=== PATIENT | female | born 1980 | race African-American/Black ===

== ENCOUNTER 2018-08-16 22:59 | Emergency (ER) | payer SELFPAY ==
[2018-08-16 23:58] LABS: Absolute Lymphocytes (CBC) 2.5 K/uL (0.7-4.9); Absolute Monocytes 0.8 K/uL (0.1-1.3); Absolute Neutrophil 5.9 K/uL (1.8-8.0); Basophils % 0.9 % (0-1.3); Eosinophils % 0.4 % (0-4.4); Hematocrit 26.9 % (36.0-45.0); Lymphocytes % 27.2 % (15.3-44.8); MCH 19.1 pg (27.0-35.0); MCV 60.7 fL (80-100); Monocytes % 8.6 % (3.3-12.3); RBC Red Blood Cell Count 4.43 M/uL (3.86-4.86)
[2018-08-17 00:18] LABS: ALT/SGPT 15 U/L (12-78); AST/SGOT 6 U/L (15-37); Albumin 3.5 g/dL (3.4-5.0); Alkaline Phosphatase 87 U/L (45-117); BUN Blood Urea Nitrogen 10 mg/dL (7-18); Bicarbonate 26 mmol/L (21-32); Bilirubin Direct < 0.1 mg/dL (0-0.2); Bilirubin Total 0.2 mg/dL (0.2-1.0); Glucose Level 111 mg/dL (74-106); Magnesium 2.3 mg/dL (1.8-2.4); Potassium 3.3 mmol/L (3.5-5.1); Protein, Total 7.6 g/dL (6.4-8.2); Sodium Level 142 mmol/L (136-145); T3 Free 2.65 pg/mL (2.18-3.98); Troponin (Emerg Dept Use Only) < 0.02 ng/mL (0.0-0.045)
[2018-08-17] MEDS ORDERED: ONDANSETRON 4 MG/2 ML VIAL ONE (00:50)
[2018-08-17] MEDS ORDERED: NA CHLORIDE 0.9% 500 ML ONE (00:51)
--- NOTE | 2018-08-17 01:10 | EDPHYS ---
Physician Documentation [facility] Name: Rosmery Treadwell Age: 38 yrs Sex: Female : 1980 Arrival Date: 08/16/2018 Time: 23:04 Bed 17 Private MD: ED Physician Adryan Braxton HPI: 08/16 23:45 This 38 yrs old Black Female presents to ER via EMS with complaints of Shortness Of cp Breath. 23:45 The patient has shortness of breath at rest. 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 Duration: The symptoms are continuous. Associated signs and symptoms: Pertinent positives: palpitations, Pertinent negatives: chest pain, productive cough, diaphoresis, fever, hemoptysis, visual changes, vomiting. Severity of symptoms: in the emergency department the symptoms have improved mildly. The patient has experienced similar episodes in the past, today's symptoms are similar, to when the patient was apparently diagnosed with atrial fibrillation. 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 - Social history:: Smoking status: Patient/guardian denies using tobacco, Patient uses alcohol, occasionally. Patient/guardian denies using street drugs, IV drugs. - Ebola Screening: : Patient negative for fever greater than or equal to 101.5 degrees Fahrenheit, and additional compatible Ebola Virus Disease symptoms Patient denies exposure to infectious person Patient denies travel to an Ebola-affected area in the 21 days before illness onset. ROS: 23:50 Constitutional: Negative for body aches, chills, fever, poor PO intake. cp 23:50 Eyes: Negative for injury, pain, redness, and discharge. cp 23:50 ENT: Negative for drainage from ear(s), ear pain, sore throat, difficulty swallowing, difficulty handling secretions. 23:50 Cardiovascular: Positive for palpitations, Negative for chest pain, edema. 23:50 Respiratory: Positive for shortness of breath, Negative for cough, wheezing. 23:50 Abdomen/GI: Negative for abdominal pain, nausea, vomiting, and diarrhea, anorexia, black/tarry stool, rectal bleeding. 23:50 Back: Negative for pain at rest, pain with movement. 23:50 : Negative for urinary symptoms, pelvic pain, vaginal bleeding, vaginal discharge. 23:50 Skin: Negative for cellulitis, rash. 23:50 Neuro: Negative for altered mental status, headache, syncope, near syncope, weakness. 23:50 All other systems are negative. Exam: 23:53 Head/Face: Normocephalic, atraumatic. cp 23:53 Eyes: Pupils equal round and reactive to light, extra-ocular motions intact. Lids and lashes normal. Conjunctiva and sclera are non-icteric and not injected. Cornea within normal limits. Periorbital areas with no swelling, redness, or edema. ENT: Nares patent. No nasal discharge, no septal abnormalities noted. Tympanic membranes are normal and external auditory canals are clear. Oropharynx with no redness, swelling, or masses, exudates, or evidence of obstruction, uvula midline. Mucous membranes moist. Neck: Trachea midline, no thyromegaly or masses palpated, and no cervical lymphadenopathy. Supple, full range of motion without nuchal rigidity, or vertebral point tenderness. No Meningismus. Chest/axilla: Normal chest wall appearance and motion. Nontender with no deformity. No lesions are appreciated. 23:53 Constitutional: The patient appears in no acute distress, alert, awake, non-diaphoretic, non-toxic, well developed, well nourished. 23:53 Cardiovascular: Rate: tachycardic, Rhythm: regular, Pulses: Pulses are 2+ in right radial artery and left radial artery. Heart sounds: murmur, not appreciated, rub, not appreciated, gallop, not appreciated, Edema: is not appreciated, JVD: is not appreciated. 23:53 Respiratory: the patient does not display signs of respiratory distress, Respirations: normal, no use of accessory muscles, no retractions, no splinting, no tachypnea, labored breathing, is not present, Breath sounds: are clear throughout, no decreased breath sounds, no stridor, no wheezing. 23:53 Abdomen/GI: Inspection: abdomen appears normal, Bowel sounds: active, all quadrants, Palpation: abdomen is soft and non-tender, in all quadrants, rebound tenderness, is not appreciated, voluntary guarding, is not appreciated, involuntary guarding, is not appreciated. 23:53 Back: pain, is absent, ROM is normal. 23:53 Skin: cellulitis, is not appreciated, no rash present. 23:53 Neuro: Orientation: to person, place \T\ time. Mentation: is normal, Cerebellar function: is grossly normal, Motor: moves all fours, strength is normal, Sensation: is normal. 23:55 ECG was reviewed by the Attending Physician. cp Vital Signs: 23:09 BP 118 / 55; Pulse 103; Resp 18; Temp 98.3(O); Pulse Ox 100% on R/A; Weight 76.2 kg ao (R); Height 5 ft. 0 in. (152.40 cm) (R); Pain 0/10; 08/17 00:15 BP 110 / 63; Pulse 86; Resp 17 S; Pulse Ox 100% on R/A; cc3 01:20 BP 112 / 72; Pulse 83; Resp 17 S; Pulse Ox 100% on R/A; cc3 08/16 23:09 Body Mass Index 32.81 (76.20 kg, 152.40 cm) ao MDM: 08/16 23:23 Patient medically screened. cp 08/17 00:00 Differential diagnosis: Anemia CHF exacerbation, Myocardial Infarction pneumonia, cp Pneumothorax pulmonary edema, Pulmonary Embolism Unstable Angina cardiac arrythmia. 01:10 Data reviewed: vital signs, nurses notes, lab test result(s), EKG, radiologic studies, cp plain films. Test interpretation: by ED physician or midlevel provider: ECG, plain radiologic studies. Counseling: I had a detailed discussion with the patient and/or guardian regarding: the historical points, exam findings, and any diagnostic results supporting the discharge/admit diagnosis, lab results, radiology results, the need for outpatient follow up, for definitive care, a family practitioner, to return to the emergency department if symptoms worsen or persist or if there are any questions or concerns that arise at home. Response to treatment: the patient's symptoms have markedly improved after treatment, VSS. Discussed results of labs and need for f/u with PCP. Reviewed notes from previous visits that show chronic anemia. Patient denies rectal or vaginal bleeding. Will discharge to home for continued monitoring. 08/16 23:30 Order name: Basic Metabolic Panel; Complete Time: 00:30 cp 08/17 00:30 Interpretation: Normal except: K 3.3; CL 109; GLUC 111; GFR 85. cp 08/16 23:30 Order name: CBC with Diff; Complete Time: 00:30 cp 08/17 00:30 Interpretation: Normal except: HGB 8.5; HCT 26.9; MCV 60.7; MCH 19.1; MCHC 31.5; PLT cp 515; RDW 18.2; MPV 7.0. 08/16 23:30 Order name: LFT's; Complete Time: 00:30 cp 08/16 23:30 Order name: Magnesium; Complete Time: 00:30 cp 08/16 23:30 Order name: PT-INR; Complete Time: 00:30 cp 08/16 23:30 Order name: Troponin (emerg Dept Use Only); Complete Time: 00:30 cp 08/16 23:30 Order name: TSH; Complete Time: 00:30 cp 08/16 23:30 Order name: T3 Free; Complete Time: 00:30 cp 08/16 23:30 Order name: UDS cp 08/16 23:30 Order name: D-Dimer; Complete Time: 00:30 cp 08/17 00:30 Order name: XRAY Chest (1 view) 08/17 01:11 Order name: Urine Dipstick--Ancillary (enter results) ms 08/17 01:11 Order name: Urine --Ancillary (enter results) ms 08/16 23:30 Order name: EKG; Complete Time: 23:30 cp 08/16 23:30 Order name: EKG - Nurse/Tech; Complete Time: 23:50 cp 08/16 23:30 Order name: Cardiac monitoring; Complete Time: 23:50 cp 08/16 23:30 Order name: IV Saline Lock; Complete Time: 23:50 cp 08/16 23:30 Order name: Labs collected and sent; Complete Time: 23:50 cp 08/16 23:30 Order name: O2 Per Protocol; Complete Time: 23:50 cp 08/16 23:30 Order name: O2 Sat Monitoring; Complete Time: 23:50 cp 08/16 23:30 Order name: Urine Dipstick-Ancillary (obtain specimen); Complete Time: 04:03 cp 08/16 23:30 Order name: Urine Test (obtain specimen); Complete Time: 04:03 cp EC/12 23:55 Rate is 84 beats/min. Rhythm is regular. OR interval is normal. QRS interval is normal. cp QT interval is normal. Interpreted by me. Reviewed by me. Administered Medications: 08/17 00:32 CANCELLED (Physician Discretion): NS 0.9% 1000 ml IV at 1 bolus Per protocol; 1000 mL cp bolus 00:50 Drug: Zofran 4 mg Route: IVP; Site: right antecubital; cc3 01:20 Follow up: Response: No adverse reaction; Nausea is decreased cc3 00:50 Drug: NS 0.9% 500 ml Route: IV; Rate: bolus; Site: right antecubital; cc3 01:20 Follow up: Response: No adverse reaction; IV Status: Completed infusion; IV Intake: cc3 500ml 01:05 Drug: Potassium Effervescent Tablet 25 mEq Route: PO; cc3 01:20 Follow up: Response: No adverse reaction cc3 Disposition: 14:49 Co-signature as Attending Physician, Adryan Braxton MD I agree with the assessment and wa plan of care. Disposition: 08/17/18 01:10 Discharged to Home. Impression: Palpitations, Anemia in chronic diseases classified elsewhere. - Condition is Stable. - Discharge Instructions: Anemia, Nonspecific, Palpitations. - Medication Reconciliation Form, Thank You Letter, Antibiotic Education, Prescription Opioid Use form. - Follow up: Private Physician; When: 1 - 2 days; Reason: Recheck today's complaints. - Problem is new. - Symptoms have improved. Signatures: Dispatcher [employer] EDMI Álvaro Doyle PA PA cp Ortiz, Alex, RN RN ao Appiah, William, MD MD wa Cordel, Charlene cc3 Corrections: (The following items were deleted from the chart) 00:32 00:30 NS 0.9% 1000 ml IV at 1 bolus Per protocol; 1000 mL bolus ordered. cp cp 01:27 01:10 08/17/2018 01:10 Discharged to Home. Impression: Palpitations; Anemia in chronic cc3 diseases classified elsewhere. Condition is Stable. Forms are Medication Reconciliation Form, Thank You Letter, Antibiotic Education, Prescription Opioid Use. Follow up: Private Physician; When: 1 - 2 days; Reason: Recheck today's complaints. Problem is new. Symptoms have improved. cp
--- NOTE | 2018-08-17 01:10 | ER ---
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 ao Patient was 100% RA. Patient stated that she was worried about heart problems and was diagnosed with AFib in the past. Patient shows SR in the monitor for EMS. Patient was positive for nausea and denies chest pain. Transition of care: patient was not received from another setting of care. Onset of symptoms was August 16, 2018 at 22:00. Risk Assessment: Do you want to hurt yourself or someone else? Patient reports no desire to harm self or others. Initial Sepsis Screen: Does the patient meet any 2 criteria? No. Patient's initial sepsis screen is negative. Does the patient have a suspected source of infection? No. Patient's initial sepsis screen is negative. Care prior to arrival: None. 23:05 Method Of Arrival: EMS: [facility] ao 23:05 Acuity: SLIM 3 ao Triage Assessment: 23:10 General: Appears in no apparent distress. comfortable, Behavior is calm, cooperative, cc3 appropriate for age. Pain: Denies pain. EENT: No signs and/or symptoms were reported regarding the EENT system. Neuro: Level of Consciousness is awake, alert, obeys commands, Oriented to person, place, time, situation, Appropriate for age. Cardiovascular: Denies chest pain, Patient's skin is warm and dry. Respiratory: Reports shortness of breath since 30 minutes prior to ER consult Onset: The symptoms/episode began/occurred today, the patient has mild shortness of breath. GI: Abdomen is round non-distended. : No signs and/or symptoms were reported regarding the genitourinary system. Derm: No signs and/or symptoms reported regarding the dermatologic system. Musculoskeletal: Circulation, motion, and sensation intact. Range of motion: intact in all extremities. 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 - Social history:: Smoking status: Patient/guardian denies using tobacco, Patient uses alcohol, occasionally. Patient/guardian denies using street drugs, IV drugs. - Ebola Screening: : Patient negative for fever greater than or equal to 101.5 degrees Fahrenheit, and additional compatible Ebola Virus Disease symptoms Patient denies exposure to infectious person Patient denies travel to an Ebola-affected area in the 21 days before illness onset. Screenin:10 Abuse screen: Denies threats or abuse. Denies injuries from another. Nutritional cc3 screening: No deficits noted. Tuberculosis screening: No symptoms or risk factors identified. Fall Risk Ambulatory Aid- None/Bed Rest/Nurse Assist (0 pts). Gait- Normal/Bed Rest/Wheelchair (0 pts) Mental Status- Oriented to own ability (0 pts). Assessment: 23:10 Respiratory: Airway is patent Respiratory effort is even, unlabored. cc3 23:10 Respiratory: Breath sounds are clear bilaterally. cc3 23:11 General: Appears in no apparent distress. comfortable, Behavior is calm, cooperative, ao appropriate for age. Pain: Complains of pain in chest resolved at this time Pain currently is 0 out of 10 on a pain scale. Neuro: Level of Consciousness is awake, alert, obeys commands, Oriented to person, place, time, situation, Appropriate for age. Cardiovascular: Rhythm is sinus tachycardia. 08/17 00:30 Reassessment: Patient appears in no apparent distress at this time. Patient and/or cc3 family updated on plan of care and expected duration. Pain level reassessed. Patient is alert, oriented x 3, equal unlabored respirations, skin warm/dry/pink. 01:20 Reassessment: Patient appears in no apparent distress at this time. Patient and/or cc3 family updated on plan of care and expected duration. Pain level reassessed. Patient is alert, oriented x 3, equal unlabored respirations, skin warm/dry/pink. BRIDGETTE Doyle discharged the patient no prescription was given. IV cannula removed and patient left ER vitally stable and ambulatory. Vital Signs: 08/16 23:09 BP 118 / 55; Pulse 103; Resp 18; Temp 98.3(O); Pulse Ox 100% on R/A; Weight 76.2 kg ao (R); Height 5 ft. 0 in. (152.40 cm) (R); Pain 0/10; 08/17 00:15 BP 110 / 63; Pulse 86; Resp 17 S; Pulse Ox 100% on R/A; cc3 01:20 BP 112 / 72; Pulse 83; Resp 17 S; Pulse Ox 100% on R/A; cc3 08/16 23:09 Body Mass Index 32.81 (76.20 kg, 152.40 cm) ao ED Course: 08/16 23:04 Patient arrived in ED. ao 23:09 Triage completed. ao 23:10 Patient has correct armband on for positive identification. Bed in low position. Call cc3 light in reach. Side rails up X2. manager international on. Pulse ox on. NIBP on. 23:11 Arm band placed on right wrist. 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 23:23 Álvaro Doyle PA is PHCP. cp 23:23 Adryan Braxton MD is Attending Physician. cp 23:37 Chantel Hayes is Primary Nurse. cc3 23:45 Inserted saline lock: 20 gauge in right antecubital area, using aseptic technique. cc3 Blood collected. 08/17 00:45 X-ray completed. Portable x-ray completed in exam room. Patient tolerated procedure jb2 well. 01:01 XRAY Chest (1 view) In Process Unspecified. EDMS 01:20 No provider procedures requiring assistance completed. IV discontinued, intact, cc3 bleeding controlled, No redness/swelling at site. Pressure dressing applied. Administered Medications: 00:32 CANCELLED (Physician Discretion): NS 0.9% 1000 ml IV at 1 bolus Per protocol; 1000 mL cp bolus 00:50 Drug: Zofran 4 mg Route: IVP; Site: right antecubital; cc3 01:20 Follow up: Response: No adverse reaction; Nausea is decreased cc3 00:50 Drug: NS 0.9% 500 ml Route: IV; Rate: bolus; Site: right antecubital; cc3 01:20 Follow up: Response: No adverse reaction; IV Status: Completed infusion; IV Intake: cc3 500ml 01:05 Drug: Potassium Effervescent Tablet 25 mEq Route: PO; cc3 01:20 Follow up: Response: No adverse reaction cc3 Intake: 01:20 IV: 500ml; Total: 500ml. cc3 Outcome: 01:10 Discharge ordered by . cp 01:20 Discharged to home ambulatory, with family. cc3 01:20 Condition: stable 01:20 Discharge instructions given to patient, family, Instructed on discharge instructions, follow up and referral plans. Demonstrated understanding of instructions, follow-up care. 01:27 Patient left the ED. cc3 Signatures: Dispatcher [employer] EDMS Alberto Brunson2 Álvaro Doyle PA PA cp Ortiz, Alex, LUPE RN Chantel Montes cc3
[2018-08-17] MEDS ORDERED: POTASSIUM 25 MEQ EFFERV TAB ONE (01:16)
[2018-08-17 01:22] LABS: Urine Blood NEGATIVE (NEG); Urine Glucose NEGATIVE (NEG); Urine Protein NEGATIVE (NEG); Urine Specific Gravity 1.015 (1.005-1.030)
[2018-08-17 01:28] LABS: Barbiturates NEGATIVE (NEGATIVE); Benzodiazepines NEGATIVE (NEGATIVE); Cocaine NEGATIVE (NEGATIVE); METHAMPHETAM NEGATIVE (NEGATIVE); Methadone NEGATIVE (NEGATIVE); Opiates NEGATIVE (NEGATIVE); Phencyclidine NEGATIVE (NEGATIVE); THC Cannibis NEGATIVE (NEGATIVE)
[2018-08-17 01:33] VITALS: TEMP 98.3; O2SAT 100
[2018-08-17 01:34] VITALS: BP 110/63
--- NOTE | 2018-08-17 08:23 | RAD REPORT ---
EXAM DESCRIPTION: RAD - Chest Single View - 08/17/2018 1:01 am CLINICAL HISTORY: Palpitations, a arrhythmia, history of atrial fibrillation COMPARISON: October 2017 TECHNIQUE: AP portable chest image was obtained 0039 hours . FINDINGS: Lungs are clear. Heart and vasculature are normal. No measurable pleural effusion and no p neumothorax. No acute bony abnormality seen. No acute aortic findings suspected. IMPRESSION: No acute cardiopulmonary process. No significant interval change.
--- NOTE | 2018-08-17 08:33 | EKG ---
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
== END 2018-08-17 01:27 | disposition home or self-care (01) ==
LOC: ER 22:59
DX: R00.2 Palpitations (principal); D63.8 Anemia in other chronic diseases classified elsewhere
CPT/HCPCS: 36415; 71045; 80048; 80076; 80307; 81003; 81025; 83735; 84443; 84481; 84484; 85025; 85379; 85610; 93005; 96374; 99284; J2405

== ENCOUNTER 2021-03-10 13:52 | Emergency (ER) | payer SELFPAY ==
--- OUTSIDE RECORDS SUMMARY | 2021-03-10 13:54 | XMS REPORT | Continuity of Care Document ---
:1980 Author Organization [facility] t Address [address] [place] [address] Care Team Providers Name Role Phone Doctor Unassigned, Name Attending Clinician Unavailable Problems This patient has no known problems. Allergies, Adverse Reactions, Alerts This patient has no known allergies or adverse reactions. Medications This patient has no known medications. Procedures This patient has no known procedures. Encounters Start End Encounter Admission Attending Care Care Encounter Source Date/Time Date/Time Type Type Clinicians Facility Department ID 2019-06-03 2019-06-03 Orders Doctor ELIZABETH [id number] 00:00:00 00:00:00 Only UnassignedWILLIAM [id number] [place] [facility] [id number] Results This patient has no known results.
[2021-03-10 15:04] LABS: Urine Blood 2+ (Negative); Urine Glucose Negative (Negative); Urine Protein Negative (Negative); Urine Specific Gravity 1.025 (1.005-1.030); Urine pH 7.5 (5.0-7.0)
[2021-03-10 15:22] LABS: Absolute Lymphocytes (CBC) 2.8 K/uL (0.7-4.9); Hematocrit 28.3 % (36.0-45.0); Lymphocytes % 28.8 % (15.3-44.8); MPV 8.7 fL (7.6-11.3); RBC Red Blood Cell Count 4.74 M/uL (3.86-4.86)
[2021-03-10 15:23] LABS: Protime INR 1.06
--- NOTE | 2021-03-10 15:30 | RAD REPORT ---
EXAM DESCRIPTION: CT - Head Brain Wo Cont - 03/10/2021 3:09 pm CLINICAL HISTORY: Blurred vision COMPARISON: None TECHNIQUE: Computed axial tomography of the head was obtained. IV contrast was not requested. All CT scans are performed using dose optimization technique as appropriate and may include automated exposure control or mA/KV adjustment according to patient size. FINDINGS: An intracranial bleed is not seen . The ventricles are normal in caliber. No extra-axial fluid collection is noted. Mild cerebellar tonsillar ectopia Fluid within the sinuses/ mastoids is not seen. IMPRESSION: Mild cerebellar tonsillar ectopia No acute intracranial abnormality is seen. If patient's symptoms persist MRI of the brain would be r ecommended.
[2021-03-10 15:36] LABS: ALT/SGPT 17 U/L (12-78); AST/SGOT 9 U/L (15-37); Albumin 3.8 g/dL (3.4-5.0); Alkaline Phosphatase 91 U/L (45-117); BUN Blood Urea Nitrogen 10 mg/dL (7-18); Bicarbonate 26 mmol/L (21-32); Bilirubin Direct < 0.1 mg/dL (0-0.2); Bilirubin Total 0.3 mg/dL (0.2-1.0); Glucose Level 80 mg/dL (74-106); Magnesium 2.5 mg/dL (1.8-2.4); Potassium 3.5 mmol/L (3.5-5.1); Protein, Total 8.2 g/dL (6.4-8.2); Sodium Level 141 mmol/L (136-145); Troponin (Emerg Dept Use Only) < 0.02 ng/mL (0.0-0.045)
[2021-03-10 16:00] LABS: Urine Specific Gravity/Preg 1.025 (1.005-1.030)
--- NOTE | 2021-03-10 17:06 | EDPHYS ---
Physician Documentation [facility] Name: Rosmery Treadwell Age: 41 yrs Sex: Female : 1980 Arrival Date: 03/10/2021 Time: 13:55 Bed 4 Private MD: ED Physician Álvaro Benjamin HPI: 03/10 14:45 This 41 yrs old Black Female presents to ER via Ambulatory with complaints of Blurred cp Vision, Shaky. 14:45 The patient's problem is reported as visual difficulty, blurred vision. Onset: The cp symptoms/episode began/occurred 4 day(s) ago. 14:45 Duration: This was a single incident. cp 14:45 Context: symptoms became apparent 5 days ago. cp 14:45 The symptoms are alleviated by nothing. The symptoms are aggravated by nothing. cp Associated signs and symptoms: Pertinent negatives: chest pain, headache, lightheadedness, palpitations, weakness. Patient's baseline: Neuro: alert and fully oriented, Motor: no deficits, Ambulation: walks without assistance, Speech: normal. 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 - Social history:: Smoking status: Patient denies any tobacco usage or history of. ROS: 14:50 Constitutional: Negative for body aches, chills, fever, poor PO intake. cp 14:50 Eyes: Positive for blurry vision, Negative for discharge, pain, redness, vision loss. cp 14:50 ENT: Negative for ear pain, sore throat, difficulty swallowing, difficulty handling secretions. 14:50 Cardiovascular: Negative for chest pain, edema, palpitations. 14:50 Respiratory: Negative for cough, shortness of breath, wheezing. 14:50 Abdomen/GI: Negative for abdominal pain, nausea, vomiting, and diarrhea. 14:50 : Negative for urinary symptoms. 14:50 Neuro: Negative for altered mental status, dizziness, headache, numbness, speech changes, syncope, weakness. 14:50 All other systems are negative. Exam: 14:55 Constitutional: The patient appears in no acute distress, alert, awake, cp non-diaphoretic, non-toxic, well developed, well nourished. 14:55 Head/Face: Normocephalic, atraumatic. cp 14:55 Eyes: Periorbital structures: appear normal, Pupils: equal, round, and reactive to light and accomodation, Extraocular movements: intact throughout, Conjunctiva: normal, no exudate, no injection, Sclera: no appreciated abnormality, Lids and lashes: appear normal, bilaterally. 14:55 ENT: External ear(s): are unremarkable, Ear canal(s): are normal, clear, TM's: dullness, bilaterally, Nose: is normal, Mouth: Lips: moist, Oral mucosa: moist, Posterior pharynx: Airway: no evidence of obstruction, patent. 14:55 Neck: ROM/movement: is normal, is supple, without pain, no range of motions limitations, no nuchal rigidity. 14:55 Chest/axilla: Inspection: normal, Palpation: is normal, no crepitus, no tenderness. 14:55 Cardiovascular: Rate: normal, Rhythm: regular, Edema: is not appreciated, JVD: is not appreciated. 14:55 Respiratory: the patient does not display signs of respiratory distress, Respirations: normal, no use of accessory muscles, no retractions, labored breathing, is not present, Breath sounds: are clear throughout, no decreased breath sounds, no stridor, no wheezing. 14:55 Abdomen/GI: Inspection: abdomen appears normal, Palpation: abdomen is soft and non-tender, in all quadrants. 14:55 Skin: no rash present. 14:55 Neuro: Orientation: to person, place \T\ time. Mentation: is normal, Cerebellar function: is grossly normal, Motor: moves all fours, strength is normal, Sensation: is normal, Gait: is steady, at a normal pace, without difficulty. 15:16 ECG was reviewed by the Attending Physician. cp 15:50 Radiologist reports: no acute findings cp Vital Signs: 14:39 BP 114 / 71; Pulse 81; Resp 17; Temp 99.5; Pulse Ox 100% ; Weight 81.65 kg; Height 5 ll1 ft. (152.40 cm); Pain 0/10; 17:38 BP 106 / 73; Pulse 75; Resp 16; Pulse Ox 100% ; ll1 14:39 Body Mass Index 35.15 (81.65 kg, 152.40 cm) ll1 Visual Acuity: 14:52 Left Eye Visual acuity 20/25, ; Right Eye Visual acuity 20/15, ; Both Eyes Visual ll1 acuity 20/13; Without Lenses; MDM: 14:37 Patient medically screened. lucina 15:00 Differential diagnosis: CVA, metabolic disorder, drug effects, cardiac arrythmia, cp anemia. 17:05 Data reviewed: vital signs, nurses notes, lab test result(s), EKG, radiologic studies, cp CT scan. 17:05 Counseling: I had a detailed discussion with the patient and/or guardian regarding: the cp historical points, exam findings, and any diagnostic results supporting the discharge/admit diagnosis, lab results, radiology results, the need for outpatient follow up, for definitive care, a family practitioner, to return to the emergency department if symptoms worsen or persist or if there are any questions or concerns that arise at home. 17:05 Test interpretation: by ED physician or midlevel provider: ECG. Response to treatment: cp the patient's symptoms have mildly improved after treatment, and as a result, I will discharge patient. 17:05 ED course: VSS. Discussed labs showing anemia. Patient reported darker stools but cp declined guaiac testing at this time and reports past anemia caused by iron deficiency and heavy menses. Will discharge to home for continued monitoring. 03/10 14:42 Order name: Basic Metabolic Panel 03/10 14:42 Order name: CBC with Diff 03/10 14:42 Order name: LFT's 03/10 14:42 Order name: Magnesium cp 03/10 14:42 Order name: PT-INR 03/10 14:42 Order name: Troponin (emerg Dept Use Only) 03/10 15:04 Order name: Urine Dipstick-Ancillary; Complete Time: 15:27 EDMS 03/10 15:47 Interpretation: Normal except: UBLD 2+; UPH 7.5. 03/10 15:05 Order name: Urine --Ancillary (enter results) vt 03/10 15:26 Order name: Protime (+INR); Complete Time: 15:27 EDMS 03/10 15:26 Order name: CBC with Automated Diff; Complete Time: 14:04 EDMS 03/10 15:27 Interpretation: Normal except: HGB 8.2; HCT 28.3; MCV 59.8; MCH 17.4; MCHC 29.1; PLT cp 464; RDW 18.8. 05/ 15:36 Order name: Basic Metabolic Panel; Complete Time: 15:46 EDMS / 15:46 Interpretation: Normal except: CL 109. cp / 15:36 Order name: Liver (Hepatic) Function; Complete Time: 15:46 EDMS / 15:46 Interpretation: Normal except: AST 9; GLOB 4.4; A/G 0.9. cp / 15:36 Order name: Troponin (Emerg Dept Use Only); Complete Time: 15:46 EDMS 03/10 15:36 Order name: Magnesium; Complete Time: 15:46 EDMS / 15:46 Interpretation: Reviewed. cp 03/10 14:42 Order name: Accucheck Blood Glucose cp 03/10 14:42 Order name: EKG; Complete Time: 14:42 cp 03/10 14:42 Order name: Cardiac monitoring; Complete Time: 15:15 cp 03/10 14:42 Order name: EKG - Nurse/Tech; Complete Time: 15:15 cp / 14:42 Order name: IV Saline Lock; Complete Time: 14:48 cp / 14:42 Order name: Labs collected and sent; Complete Time: 14:48 cp / 14:42 Order name: O2 Per Protocol; Complete Time: 14:48 cp / 14:42 Order name: O2 Sat Monitoring; Complete Time: 14:48 cp 03/10 14:42 Order name: Visual Acuity; Complete Time: 14:48 cp / 14:45 Order name: CT Head Brain wo Cont cp / 14:45 Order name: Urine Dipstick-Ancillary (obtain specimen); Complete Time: 14:58 cp / 14:45 Order name: Urine Test (obtain specimen); Complete Time: 14:58 cp 03/10 15:31 Order name: CT; Complete Time: 15:46 EDMS 03/10 15:47 Interpretation: Report reviewed. cp 03/10 16:00 Order name: Urine --Ancillary EDMS EC:16 Rate is 76 beats/min. Rhythm is regular. PA interval is normal. QRS interval is normal. cp QT interval is normal. T waves are Inverted in lead aVR. Interpreted by me. Reviewed by me. Administered Medications: No medications were administered Disposition: 17:45 Chart complete. cp 03/11 07:29 Co-signature as Attending Physician, Álvaro Benjamin MD I agree with the assessment and [facility] plan of care. Disposition: 03/10/21 17:05 Discharged to Home. Impression: Anemia in chronic diseases classified elsewhere, Visual disturbances - blurry vision. - Condition is Stable. - Discharge Instructions: Iron Deficiency Anemia, Adult, Blurred Vision, Adult, Iron-Rich Diet. - Prescriptions for Ferrous Sulfate 325 mg (65 mg Iron) Oral Tablet - take 1 tablet by ORAL route every 12 hours; 60 tablet. - Medication Reconciliation Form, Thank You Letter, Antibiotic Education, Prescription Opioid Use, Work release form form. - Follow up: Private Physician; When: 2 - 3 days; Reason: Recheck today's complaints. - Problem is an ongoing problem. - Symptoms have improved. Signatures: Dispatcher [employer] EDAR Álvaro Benjamin MD MD cha Page, Corey PA PA Mary Mitchell, RN RN ll1 Corrections: (The following items were deleted from the chart) 03/10 17:40 17:05 03/10/2021 17:05 Discharged to Home. Impression: Anemia in chronic diseases ll1 classified elsewhere; Visual disturbances - blurry vision. Condition is Stable. Forms are Medication Reconciliation Form, Thank You Letter, Antibiotic Education, Prescription Opioid Use. Follow up: Private Physician; When: 2 - 3 days; Reason: Recheck today's complaints. Problem is an ongoing problem. Symptoms have improved. cp 03/11 14:07 03/10 14:45 Duration: The episodes are intermittent, cp cp
--- NOTE | 2021-03-10 17:06 | ER ---
Nurse's Notes [facility] Name: Rosmery Treadwell Age: 41 yrs Sex: Female : 1980 Arrival Date: 03/10/2021 Time: 13:55 Bed 4 Private MD: Diagnosis: Anemia in chronic diseases classified elsewhere;Visual disturbances-blurry vision Presentation: 03/10 14:39 Chief complaint: Patient states: Blurred vision and black spots in field of vision for ll1 5 days. No pain or UNGER. No new changes in foods/meds. Coronavirus screen: Client denies travel out of the [place] in the last 14 days. At this time, the client does not indicate any symptoms associated with coronavirus-19. Ebola Screen: Patient denies travel to an Ebola-affected area in the 21 days before illness onset. Initial Sepsis Screen: Does the patient meet any 2 criteria? No. Patient's initial sepsis screen is negative. Does the patient have a suspected source of infection? No. Patient's initial sepsis screen is negative. Risk Assessment: Do you want to hurt yourself or someone else? Patient reports no desire to harm self or others. Onset of symptoms was March 05, 2021. 14:39 Method Of Arrival: Ambulatory ll1 14:39 Acuity: SLIM 4 ll1 Triage Assessment: 14:40 General: Appears in no apparent distress. Behavior is calm, cooperative, appropriate ll1 for age. Pain: Denies pain. EENT: Eyes appear normal, but states vision is blurred and has black spots in field of vision of both eyes. . Reports blurred vision since for 5 days with black spots in field of vision. Neuro: Level of Consciousness is awake, Oriented to person, place, time, situation, [place] are equal bilaterally Moves all extremities. Gait is steady, Speech is normal, Facial symmetry appears normal, Pupils are PERRLA. 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 - Social history:: Smoking status: Patient denies any tobacco usage or history of. Screenin:41 Abuse screen: Denies threats or abuse. Nutritional screening: No deficits noted. ll1 Tuberculosis screening: No symptoms or risk factors identified. 15:17 Fall Risk IV access (20 points). Total Abdi Fall Scale indicates No Risk (0-24 pts). ll1 Assessment: 15:40 Reassessment: No changes from previously documented assessment. Patient and/or family ll1 updated on plan of care and expected duration. Pain level reassessed. 16:40 Reassessment: No changes from previously documented assessment. Patient and/or family ll1 updated on plan of care and expected duration. Pain level reassessed. 17:39 Reassessment: No changes from previously documented assessment. Patient and/or family ll1 updated on plan of care and expected duration. Pain level reassessed. Vital Signs: 14:39 BP 114 / 71; Pulse 81; Resp 17; Temp 99.5; Pulse Ox 100% ; Weight 81.65 kg; Height 5 ll1 ft. (152.40 cm); Pain 0/10; 17:38 BP 106 / 73; Pulse 75; Resp 16; Pulse Ox 100% ; ll1 14:39 Body Mass Index 35.15 (81.65 kg, 152.40 cm) ll1 Visual Acuity: 14:52 Left Eye Visual acuity 20/25, ; Right Eye Visual acuity 20/15, ; Both Eyes Visual ll1 acuity 20/13; Without Lenses; ED Course: 13:55 Patient arrived in ED. ds1 14:31 Arm band placed on Patient placed in an exam room, on a stretcher. ll1 14:33 Álvaro Doyle PA is PHCP. cp 14:33 Álvaro Benjamin MD is Attending Physician. cp 14:37 Mary Taylor, LUPE is Primary Nurse. ll1 14:41 Triage completed. ll1 14:41 Patient has correct armband on for positive identification. Bed in low position. Call ll1 light in reach. Side rails up X 1. Pulse ox on. NIBP on. 14:55 Inserted saline lock: 22 gauge in right antecubital area, using aseptic technique. ll1 Blood collected. 15:15 Urine --Ancillary (enter results) Sent. ll1 17:39 No provider procedures requiring assistance completed. IV discontinued, intact, ll1 bleeding controlled, No redness/swelling at site. Pressure dressing applied. Administered Medications: No medications were administered Outcome: 17:05 Discharge ordered by . cp 17:39 Discharged to home ambulatory. ll1 17:39 Condition: stable 17:39 Discharge instructions given to patient, Instructed on discharge instructions, follow up and referral plans. medication usage, Demonstrated understanding of instructions, follow-up care, medications, Prescriptions given X 1. 17:40 Patient left the ED. ll1 Signatures: Millicent Paulino ds1 Álvaro Doyle PA PA cp Lewis, Lynsay RN RN ll1
[2021-03-10 17:56] VITALS: TEMP 99.5; O2SAT 100
[2021-03-10 17:57] VITALS: BP 106/73
[2021-03-10 21:11] LABS: White Blood Cell Scan OK (OK)
[2021-03-10 21:12] LABS: Anisocytosis 1+; Blood Morphology Comment NOTED (NOT SEEN); Hypochromasia 3+; Platelet Estimate ADEQ; Polychromasia 1+
--- NOTE | 2021-03-11 07:50 | EKG ---
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
== END 2021-03-10 17:40 | disposition home or self-care (01) ==
LOC: ER 13:52
DX: D64.9 Anemia, unspecified (principal)
CPT/HCPCS: 36415; 70450; 80048; 80076; 81003; 81025; 83735; 84484; 85025; 85610; 93005; 99284

== ENCOUNTER 2021-03-22 21:59 | Emergency (ER) | payer SELFPAY ==
--- OUTSIDE RECORDS SUMMARY | 2021-03-22 22:01 | XMS REPORT | Continuity of Care Document ---
:1980 Author Organization Formerly [facility] t Address [address] [place] [address] Care Team Providers Name Role Phone Doctor [...] ID 2019-06-03 2019-06-03 Orders Doctor ELIZABETH [id number] 00:00:00 00:00:00 Only UnassignedWILLIAM [id number] [place] [facility] [id number] Results This patient has no known results.
[2021-03-23 00:02] LABS: Absolute Lymphocytes (CBC) 2.6 K/uL (0.7-4.9); Basophils % 1.3 % (0-1.3); Hematocrit 28.8 % (36.0-45.0); Lymphocytes % 32.8 % (15.3-44.8); MPV 7.2 fL (7.6-11.3); RBC Red Blood Cell Count 4.39 M/uL (3.86-4.86)
[2021-03-23 00:06] LABS: Urine Blood Negative (Negative); Urine Glucose Negative (Negative); Urine Protein Negative (Negative); Urine Specific Gravity 1.025 (1.005-1.030)
[2021-03-23] MEDS ORDERED: MAGNES/ALUMIN/SIMET 30ML UCUP ONE (00:12)
[2021-03-23] MEDS ORDERED: PANTOPRAZOLE 40 MG INJ ONE (00:12)
[2021-03-23] MEDS ORDERED: NA CHLORIDE 0.9% 1,000 ML ONE (00:13)
[2021-03-23] MEDS ORDERED: LIDOCAINE VISCOUS 2% SOLN 15 ML UDC ONE (00:13)
[2021-03-23 00:17] LABS: ALT/SGPT 19 U/L (12-78); AST/SGOT 7 U/L (15-37); Albumin 3.7 g/dL (3.4-5.0); Alkaline Phosphatase 87 U/L (45-117); BUN Blood Urea Nitrogen 6 mg/dL (7-18); Bicarbonate 29 mmol/L (21-32); Bilirubin Direct < 0.1 mg/dL (0-0.2); Bilirubin Total 0.3 mg/dL (0.2-1.0); Glucose Level 89 mg/dL (74-106); Lipase 130 U/L (73-393); Magnesium 2.5 mg/dL (1.8-2.4); Potassium 3.5 mmol/L (3.5-5.1); Protein, Total 7.7 g/dL (6.4-8.2); Sodium Level 141 mmol/L (136-145); Troponin (Emerg Dept Use Only) < 0.02 ng/mL (0.0-0.045)
--- NOTE | 2021-03-23 00:55 | EDPHYS ---
Physician Documentation [facility] Name: Rosmery Treadwell Age: 41 yrs Sex: Female : 1980 Arrival Date: 03/22/2021 Time: 22:01 Bed 16 Private MD: ED Physician Álvaro Benjamin HPI: 03/23 00:48 This 41 yrs old Black Female presents to ER via EMS with complaints of Acid Reflux. lucina 00:48 The patient presents to the emergency department with nausea, that is mild. Onset: The lucina symptoms/episode began/occurred 3 day(s) ago. Possible causes: unknown. The symptoms are aggravated by nothing. The symptoms are alleviated by nothing. reflux symptoms, burning in throat. Associated signs and symptoms: The patient has no apparent associated signs or symptoms. Severity of symptoms: At their worst the symptoms were mild in the emergency department the symptoms are unchanged. 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 - Family history:: not pertinent. - Social history:: Smoking status: unknown. ROS: 03/23 00:48 Constitutional: Negative for fever, chills, and weight loss, Eyes: Negative for injury, lucina pain, redness, and discharge, ENT: Negative for injury, pain, and discharge, Neck: Negative for injury, pain, and swelling, Cardiovascular: Negative for chest pain, palpitations, and edema, Respiratory: Negative for shortness of breath, cough, wheezing, and pleuritic chest pain, Abdomen/GI: Negative for abdominal pain, nausea, vomiting, diarrhea, and constipation, Back: Negative for injury and pain, : Negative for injury, bleeding, discharge, and swelling, MS/Extremity: Negative for injury and deformity, Skin: Negative for injury, rash, and discoloration, Neuro: Negative for headache, weakness, numbness, tingling, and seizure, Psych: Negative for depression, anxiety, suicide ideation, homicidal ideation, and hallucinations, Allergy/Immunology: Negative for hives, rash, and allergies, Endocrine: Negative for neck swelling, polydipsia, polyuria, polyphagia, and marked weight changes, Hematologic/Lymphatic: Negative for swollen nodes, abnormal bleeding, and unusual bruising. Exam: 00:48 Constitutional: This is a well developed, well nourished patient who is awake, alert, lucina and in no acute distress. Head/Face: Normocephalic, atraumatic. Eyes: Pupils equal round and reactive to light, extra-ocular motions intact. Lids and lashes normal. Conjunctiva and sclera are non-icteric and not injected. Cornea within normal limits. Periorbital areas with no swelling, redness, or edema. ENT: Nares patent. No nasal discharge, no septal abnormalities noted. Tympanic membranes are normal and external auditory canals are clear. Oropharynx with no redness, swelling, or masses, exudates, or evidence of obstruction, uvula midline. Mucous membranes moist. Neck: Trachea midline, no thyromegaly or masses palpated, and no cervical lymphadenopathy. Supple, full range of motion without nuchal rigidity, or vertebral point tenderness. No Meningismus. Chest/axilla: Normal chest wall appearance and motion. Nontender with no deformity. No lesions are appreciated. Cardiovascular: Regular rate and rhythm with a normal S1 and S2. No gallops, murmurs, or rubs. Normal PMI, no JVD. No pulse deficits. Respiratory: Lungs have equal breath sounds bilaterally, clear to auscultation and percussion. No rales, rhonchi or wheezes noted. No increased work of breathing, no retractions or nasal flaring. Abdomen/GI: Soft, non-tender, with normal bowel sounds. No distension or tympany. No guarding or rebound. No evidence of tenderness throughout. Back: No spinal tenderness. No costovertebral tenderness. Full range of motion. Skin: Warm, dry with normal turgor. Normal color with no rashes, no lesions, and no evidence of cellulitis. MS/ Extremity: Pulses equal, no cyanosis. Neurovascular intact. Full, normal range of motion. Neuro: Awake and alert, GCS 15, oriented to person, place, time, and situation. Cranial nerves II-XII grossly intact. Motor strength 5/5 in all extremities. Sensory grossly intact. Cerebellar exam normal. Normal gait. Psych: Awake, alert, with orientation to person, place and time. Behavior, mood, and affect are within normal limits. 00:57 ECG was reviewed by the Attending Physician. [facility] Vital Signs: 03/22 22:05 BP 122 / 68; Pulse 73; Resp 16; Temp 98.5(O); Pulse Ox 100% ; Weight 81.65 kg; Height 5 vg1 ft. 0 in. (152.40 cm); Pain 0/10; 03/23 01:15 BP 115 / 75; Pulse 65; Resp 16 S; Temp 98.6(O); Pulse Ox 100% on R/A; bb 03/22 22:05 Body Mass Index 35.15 (81.65 kg, 152.40 cm) vg1 MDM: 03/22 23:07 Patient medically screened. [facility] 03/23 00:51 Differential diagnosis: Nonspecific abd pain, gastritis, cholecystitis, pancreatitis. [facility] Data reviewed: vital signs, nurses notes, lab test result(s), EKG, radiologic studies, plain films. Data interpreted: bottle gauger: rate is 73 beats/min, rhythm is regular, Pulse oximetry: on room air is 100 %. Test interpretation: by ED physician or midlevel provider: ECG, plain radiologic studies. 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 03/22 23:12 Order name: Basic Metabolic Panel [facility] 03/22 23:12 Order name: CBC with Diff [facility] 03/22 23:12 Order name: LFT's [facility] 03/22 23:12 Order name: Magnesium [facility] 03/22 23:12 Order name: Troponin (emerg Dept Use Only) [facility] 03/22 23:12 Order name: Lipase [facility] 03/23 00:03 Order name: CBC with Automated Diff [facility] 03/23 00:06 Order name: Urine Dipstick-Ancillary; Complete Time: 00:47 EDMS 03/23 00:17 Order name: Basic Metabolic Panel; Complete Time: 00:47 EDMS 03/23 00:17 Order name: Liver (Hepatic) Function; Complete Time: 00:47 EDMS 03/23 00:17 Order name: Troponin (Emerg Dept Use Only); Complete Time: 00:47 EDMS 03/23 00:17 Order name: Magnesium; Complete Time: 00:47 [facility] 03/23 00:17 Order name: Lipase; Complete Time: 00:47 [facility] 03/23 00:59 Order name: Urine --Ancillary (enter results) 2 03/22 23:12 Order name: XRAY Chest (1 view) [facility] 03/22 23:12 Order name: EKG; Complete Time: 23:13 [facility] 03/22 23:12 Order name: Cardiac monitoring; Complete Time: 00:26 [facility] 03/22 23:12 Order name: EKG - Nurse/Tech; Complete Time: 00:26 [facility] 03/22 23:12 Order name: IV Saline Lock; Complete Time: 23:47 [facility] 03/22 23:12 Order name: Labs collected and sent; Complete Time: 23:47 [facility] 03/22 23:12 Order name: O2 Per Protocol; Complete Time: 23:47 [facility] 03/22 23:12 Order name: O2 Sat Monitoring; Complete Time: 23:47 [facility] 03/22 23:12 Order name: Urine Dipstick-Ancillary (obtain specimen); Complete Time: 00:08 [facility] 03/22 23:12 Order name: Urine Test (obtain specimen); Complete Time: 00:08 [facility] EC:57 Rate is 62 beats/min. Rhythm is regular. QRS Bertram is Normal. IL interval is normal. QRS lucina interval is normal. QT interval is normal. No Q waves. T waves are Normal. No ST changes noted. Clinical impression: Normal ECG and No evidence of ischemia. Interpreted by me. Reviewed by me. Administered Medications: 03/22 23:55 Drug: ProTONIX (pantoprazole) 40 mg Route: IVP; Site: left antecubital; 8 03/23 00:25 Follow up: Response: No adverse reaction [facility] 03/22 23:55 Drug: GI Cocktail without - (Maalox Suspension 30 ml, Lidocaine Liquid 2 % 15 jm8 ml) Route: PO; 03/23 00:25 Follow up: Response: No adverse reaction [facility] 03/22 23:56 Drug: NS 0.9% 1000 ml Route: IV; Rate: 1 bolus; Site: left antecubital; jm8 Point of Care Testing: Urine : 03/23 00:12 hCG Reading: Negative; Control Reading: Positive; jm8 Disposition: 03/23/21 00:54 Discharged to Home. Impression: Gastro-esophageal reflux disease, Gastritis, unspecified, Iron deficiency anemia. - Condition is Stable. - Discharge Instructions: Iron Deficiency Anemia, Adult, Iron-Rich Diet, Gastritis, Adult, Gastroesophageal Reflux Disease, Adult, Gastritis, Adult, [id number], Gastroesophageal Reflux Disease, Adult, [id number], Iron Deficiency Anemia, Adult, [id number]. - Prescriptions for Carafate 1 gram Oral Tablet - take 1 tablet by ORAL route 4 times per day take on an empty stomach, beginning on waking and last dose at bedtime; 40 tablet. Ferrous Sulfate 325 mg (65 mg Iron) Oral Tablet - take 1 tablet by ORAL route every 8 hours; 90 tablet. Protonix 40 mg Oral Tablet - take 1 tablet by ORAL route once daily; 30 tablet. - Medication Reconciliation Form, Thank You Letter, Antibiotic Education, Prescription Opioid Use form. - Follow up: Private Physician; When: 2 - 3 days; Reason: Recheck today's complaints, Continuance of care, Re-evaluation by your physician. Follow up: Anastacia Heredia MD; When: 2 - 3 days; Reason: Recheck today's complaints, Continuance of care, Re-evaluation by your physician. - Problem is new. - Symptoms have improved. Signatures: Dispatcher [employer] EDÁlvaro Hillman MD MD cha Ballard, Brenda, RN RN Marija Ly, RN RN vg1 Navarro Abreu, RN RN jm8 Corrections: (The following items were deleted from the chart) 00:55 00:54 03/23/2021 00:54 Discharged to Home. Impression: Gastro-esophageal reflux lucina disease; Gastritis, unspecified. Condition is Stable. Forms are Medication Reconciliation Form, Thank You Letter, Antibiotic Education, Prescription Opioid Use. Follow up: Private Physician; When: 2 - 3 days; Reason: Recheck today's complaints, Continuance of care, Re-evaluation by your physician. Follow up: Anastacia Heredia; When: 2 - 3 days; Reason: Recheck today's complaints, Continuance of care, Re-evaluation by your physician. Problem is new. Symptoms have improved. lucina 01:17 00:55 03/23/2021 00:54 Discharged to Home. Impression: Gastro-esophageal reflux bb disease; Gastritis, unspecified; Iron deficiency anemia. Condition is Stable. Forms are Medication Reconciliation Form, Thank You Letter, Antibiotic Education, Prescription Opioid Use. Follow up: Private Physician; When: 2 - 3 days; Reason: Recheck today's complaints, Continuance of care, Re-evaluation by your physician. Follow up: Anastacia Heredia; When: 2 - 3 days; Reason: Recheck today's complaints, Continuance of care, Re-evaluation by your physician. Problem is new. Symptoms have improved. lucina
--- NOTE | 2021-03-23 00:55 | ER ---
Nurse's Notes [facility] Name: Rosmery Treadwell Age: 41 yrs Sex: Female : 1980 Arrival Date: 03/22/2021 Time: 22:01 Bed 16 Private MD: Diagnosis: Gastro-esophageal reflux disease;Gastritis, unspecified;Iron deficiency anemia Presentation: 03/22 22:05 Chief complaint: EMS states: Pt is feeling nauseated and is having acid reflux for the vg1 past 2 days; pt stated 'feels like something is stuck in my throat; I feel like I need to throw up but I cant'. Coronavirus screen: Client denies travel out of the [place] in the last 14 days. Ebola Screen: Patient negative for fever greater than or equal to 101.5 degrees Fahrenheit, and additional compatible Ebola Virus Disease symptoms. Initial Sepsis Screen: Does the patient meet any 2 criteria? No. Patient's initial sepsis screen is negative. Does the patient have a suspected source of infection? No. Patient's initial sepsis screen is negative. Risk Assessment: Do you want to hurt yourself or someone else? Patient reports no desire to harm self or others. Onset of symptoms was March 20, 2021. 22:05 Method Of Arrival: EMS: [facility] vg1 22:05 Acuity: SLIM 3 vg1 Triage Assessment: 03/23 00:59 General: Appears in no apparent distress. comfortable, Behavior is calm, cooperative, jm8 appropriate for age. Pain: Complains of pain in neck Pain currently is 6 out of 10 on a pain scale. Quality of pain is described as burning, Pain began 2-3 days ago. EENT: Reports difficulty swallowing burning in throat. Neuro: No deficits noted. Neuro: Level of Consciousness is awake, alert, obeys commands, Oriented to person, place, time. Cardiovascular: No deficits noted. Respiratory: Airway is patent Trachea midline Respiratory effort is even, unlabored, Respiratory pattern is regular, symmetrical. GI: Reports nausea, heartburn. : No deficits noted. No signs and/or symptoms were reported regarding the genitourinary system. Derm: No deficits noted. No signs and/or symptoms reported regarding the dermatologic system. Skin is intact, is healthy with good turgor, Skin is dry, Skin is pink, warm \T\ dry. Skin temperature is. Musculoskeletal: No deficits noted. No signs and/or symptoms reported regarding the musculoskeletal system. 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 - Family history:: not pertinent. - Social history:: Smoking status: unknown. Screenin:49 Abuse screen: Denies threats or abuse. Denies injuries from another. Nutritional jm8 screening: No deficits noted. Tuberculosis screening: No symptoms or risk factors identified. Fall Risk None identified. Assessment: 03/23 00:26 Cardiovascular: Rhythm is sinus rhythm. 8 01:14 Reassessment: Patient is alert, oriented x 3, equal unlabored respirations, skin bb warm/dry/pink. pt verbalized understanding of and agrees to plan of care discharge instructions given pt ambulated with steady gait to exit. Vital Signs: 03/22 22:05 BP 122 / 68; Pulse 73; Resp 16; Temp 98.5(O); Pulse Ox 100% ; Weight 81.65 kg; Height 5 1 ft. 0 in. (152.40 cm); Pain 0/10; 03/23 01:15 BP 115 / 75; Pulse 65; Resp 16 S; Temp 98.6(O); Pulse Ox 100% on R/A; bb 03/22 22:05 Body Mass Index 35.15 (81.65 kg, 152.40 cm) [facility] ED Course: 03/22 22:01 Patient arrived in ED. bp1 22:07 Triage completed. vg1 22:08 Arm band placed on Patient placed in waiting room, Patient notified of wait time. vg1 23:07 Álvaro Benjamin MD is Attending Physician. lucina 23:48 Inserted saline lock: 20 gauge in left antecubital area, using aseptic technique. Blood jm8 collected. 23:49 Patient has correct armband on for positive identification. Side rails up X2. jm8 03/23 00:54 Anastacia Heredia MD is Referral Physician. lucina 01:14 IV discontinued, intact, bleeding controlled, No redness/swelling at site. Pressure bb dressing applied. 01:16 No provider procedures requiring assistance completed. bb Administered Medications: 03/22 23:55 Drug: ProTONIX (pantoprazole) 40 mg Route: IVP; Site: left antecubital; jm8 03/23 00:25 Follow up: Response: No adverse reaction [facility] 03/22 23:55 Drug: GI Cocktail without - (Maalox Suspension 30 ml, Lidocaine Liquid 2 % 15 jm8 ml) Route: PO; 03/23 00:25 Follow up: Response: No adverse reaction [facility] 03/22 23:56 Drug: NS 0.9% 1000 ml Route: IV; Rate: 1 bolus; Site: left antecubital; jm8 Point of Care Testing: Urine : 03/23 00:12 hCG Reading: Negative; Control Reading: Positive; jm8 Outcome: 00:54 Discharge ordered by . lucina 01:16 Discharged to home ambulatory, with family. halle 01:16 Condition: stable 01:16 Discharge instructions given to patient, Instructed on discharge instructions, follow up and referral plans. medication usage, Demonstrated understanding of instructions, follow-up care, medications, Prescriptions given X 3. 01:17 Patient left the ED. bb Signatures: Álvaro Benjamin MD MD cha Ballard, Brenda, RN RN Marija Ly, RN RN vg1 Dalia Parks Joseph, RN RN jm8
[2021-03-23 01:25] VITALS: O2SAT 100
[2021-03-23 01:25] LABS: Anisocytosis 3+; Blood Morphology Comment NOTED (NOT SEEN); Hypochromasia 2+; Platelet Estimate ADEQ; White Blood Cell Scan OK (OK)
[2021-03-23 01:27] VITALS: BP 115/75; TEMP 98.6
[2021-03-23 03:56] LABS: Urine Specific Gravity/Preg 1.025 (1.005-1.030)
--- NOTE | 2021-03-23 07:53 | RAD REPORT ---
EXAM DESCRIPTION: RAD - Chest Single View - 03/22/2021 11:32 pm CLINICAL HISTORY: CHEST PAIN COMPARISON: August 2014. The 2018 study could not be retrieved due to technical factors. TECHNIQUE: AP portable chest image was obtained 03/22/2021 11:32 pm . FINDINGS: Lungs are clear. Heart and vasculature are normal. Heart size is accentuated due to shallo w inspiration. No measurable pleural effusion and no pneumothorax. No acute bony abnormality seen. No acute aortic findings suspected. IMPRESSION: No acute cardiopulmonary process.
--- NOTE | 2021-03-23 08:42 | EKG ---
Test Date: 2021-03-23 Test Time: 00:22:08 Personal Banker: MEASUREMENT RESULTS: Intervals: Rate: 62 MS: 192 QRSD: 80 QT: 364 QTc: 369 [place]: P: 6 MS: 192 QRS: 44 T: 0 INTERPRETIVE STATEMENTS: Normal sinus rhythm Normal ECG Compared to ECG 03/10/2021 15:11:01 No significant changes Electronically Signed On 03-23-21 08:41:13 CDT by Farrukh Ellison
== END 2021-03-23 01:17 | disposition home or self-care (01) ==
LOC: ER 21:59
DX: K21.9 Gastro-esophageal reflux disease without esophagitis (principal); K29.70 Gastritis, unspecified, without bleeding; D50.9 Iron deficiency anemia, unspecified
CPT/HCPCS: 36415; 71045; 80048; 80076; 81003; 81025; 83690; 83735; 84484; 85025; 93005; 96374; 99284

== ENCOUNTER 2021-11-27 10:45 | Emergency (ER) | payer OTHER, SELFPAY ==
--- OUTSIDE RECORDS SUMMARY | 2021-11-27 10:49 | XMS REPORT | Continuity of Care Document ---
:1980 Author Organization [facility] t Address [address] [place] [address] Care Team Providers Name Role Phone Desiree MORE, S Attending Clinician Olinda VAZ Attending Clinician Unavailable Doctor Unassigned, Name Attending Clinician Unavailable Payers Payer Name Policy Type Policy Number Effective Date Expiration Date S kellietian [employer] [id number] 2014 00:00:00 ICF [id number] 2014 00:00:00 [employer] [id number] 2014 CARE 00:00:00 Advance Directives Directive Decision Effective Termination Comments Source Date Date Healthcare Agents on N/A [facility] FileNameRelationWhite [facility] Agent Medical RelationshipCommunicationCandie Branch AddisonSiblingHealth Care [phone] (Mobile) Problems Condition Condition Condition Status Onset Resolution Last Treating Co mments Source Name Details Category Date Date Treatment Clinician Date Well woman Well woman Disease Active 2019-0 U nivers exam exam 3-26 ity of 00:00: [place] 00 Medical Branch Contracept Contracept Disease Active 2019-0 U nivers lisa lisa 3- [place] of [place] Contracept Contracept Disease Active 2018-0 U nivers lisa lisa 3-26 [place] History of History of Disease Active 0 U nivers atrial atrial 12-02 ity of fibrill[place] fibr[place] Obesity Obesity Disease Active Overview: Univ ers (BMI (BMI 1-28 Formattin ity of 30-39.9) 30-39.9) 00:00: g of this Ben as 00 note Medical might be Branch different from the original. 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 Tubal Tubal Disease Active Univers ligation ligation 12-02 ity of status status 00:00: [place] 00 Medical Branch Tubal Tubal Disease Active Univers ligation ligation 12-02 ity of status status 00:00: [place] [facility] Allergies, Adverse Reactions, Alerts Allergy Allergy Status Severity Reaction(s) Onset Inactive Treating Comm ents Source Name Type Date Date Clinician NO KNOWN Drug Active Univers ALLERGIE Class ity of S [facility] Social History Social Habit Start Date Stop Date Quantity Comments Source Exposure to Not sure [facility]-CoV-2 [facility] (event) Branch Alcohol intake 2021-03-31 2021-03-31 Current [facility] 00:00:00 00:00:00 non-drinker of [facility] alcohol Branch (finding) Tobacco use and 2021-03-31 2021-03-31 Never used Universit y of exposure 00:00:00 00:00:00 [facility] [place] Sex Assigned At [birth year] Universit y of 00:00:00 00:00:00 [facility] Smoking Status Start Date Stop Date Source Never smoker University [facility] Medical [place] Medications Ordered Filled Start Stop Current Ordering Indication Dosage Frequency Signature Comments Components Source Medication Medication Date Date Medication? Clinician (SIG) Name Name metoprolol Yes 25mg Take 25 mg U nivers succinate 3-26 by mouth ity of XL (TOPROL 13:21: daily. [place] XL) 25 mg 31 Medical 24 hr Branch tablet metoprolol Yes 25mg Take 25 mg U nivers succinate 3-26 by mouth ity of XL (TOPROL 13:21: daily. [place] XL) 25 mg 31 Medical 24 hr Branch tablet Occult Yes Use as Univers Blood 3-05 directed ity of (HEMATEST) 00:00: [place] Tab 00 Medical Branch Occult Yes Use as Univers Blood 3-05 directed ity of (HEMATEST) 00:00: [place] Tab 00 Medical Branch ferrous 2014-0 Yes 325mg Take 1 Tab Uni vers sulfate 325 2-13 by mouth 3 it y of mg (65 mg 00:00: (three) [place] iron) 00 times Medical tablet daily with Branch meals. ferrous 0 Yes 325mg Take 1 Tab Uni vers sulfate 325 2-13 by mouth 3 it y of mg (65 mg 00:00: (three) [place] iron) 00 times Medical tablet daily with Branch meals. Immunizations Ordered Filled Immunization Date Status Comments Sour e Immunization Name Name [facility] 2014-12-02 Completed University 00:00:00 [facility] TDAP 2014-12-02 Completed [facility] 00:00:00 [facility] Vital Signs Vital Name Observation Time Observation Value Comments Source Systolic blood 2021-04-01 05:21:00 111 mm[Hg[facility] Diastolic blood 2021-04-01 05:21:00 69 mm[Hg] [facility] Heart rate 2021-04-01 05:21:00 67 /min [facility] Respiratory rate 2021-04-01 05:21:00 21 /min [facility] Oxygen saturation in 2021-04-01 05:21:00 98 /min [facility] Arterial blood by [facility] Pulse oximetry [place] Body temperature 2021-04-01 01:56:00 37.33 Sonam [facility] Body height 2021-04-01 01:56:00 149.9 cm [facility] Body weight 2021-04-01 01:56:00 83.915 kg [facility] BMI 2021-04-01 01:56:00 37.37 kg/m2 [facility] Procedures Procedure Date / Time Performing Clinician Source Performed XR CHEST 1 VW 2021-04-01 03:41:39 Sofía Ramírez [facility] CBC WITH DIFF 2021-04-01 03:19:00 Sofía Ramírez [facility] D-DIMER 2021-04-01 03:19:00 Sofía Ramírez [facility] LIPASE 2021-04-01 03:19:00 Sofía Ramírez [facility] TROPONIN I 2021-04-01 03:19:00 Sofía Ramírez [facility] THYROID STIMULATING 2021-04-01 03:19:00 Sofía Ramírez [facility] HORMONE [facility] COMP. METABOLIC PANEL 2021-04-01 03:19:00 Sofía Ramírez [facility] ([id number]) Medical [place] NOTICE OF PRIVACY 2021-04-01 01:44:44 Doctor Ruba [facility] PRACTICES [place] [facility] CONSENT/REFUSAL FOR 2021-04-01 01:44:15 Doctor Ruba [facility] DIAGNOSIS AND TREATMENT [place] [facility] OP CORRESPONDENCE 2019-06-03 05:01:00 Doctor Yeh [facility] Name [facility] Encounters Start End Encounter Admission Attending Care Care Encounter Source Date/Time Date/Time Type Type Clinicians Facility Department ID 2021-09-04 Emergency [facility] [id number] [facility] 21:51:42 [facility] 2021-03-31 2021-04-01 Emergency [facility] [id number] [facility] 21:00:00 00:24:00 Sofía Delatorre [id number] [facility] [id number] [facility] [id number] [place] [address] Branch 2021-02-14 2021-02-14 Outpatient R AKINSIPE, [facility] [id number] Univers 08:15:00 08:15:00 RICK [id number] ity o f [facility] 2021-02-14 2021-02-14 Outpatient R AKINSIPE, [facility] [id number] Univers 08:15:00 08:15:00 RICK arciniega o f [facility] 2019-06-03 2019-06-03 Orders Doctor JOHNSON [id number] 00:00:00 00:00:00 Only UnassWILLIAM rojo [id number] [facility] [id number] 2019-06-03 2019-06-03 Orders Doctor JOHNSON [id number] Univers 00:00:00 00:00:00 Only Unassigned, WILLIAM [id number] ity of [place] [facility] [id number] Ben as [id number] [place] [address] Branch Results Test Description Test Time Test Comments Results Result Sourc e Comments XR CHEST 1 VW 2021-03-06 No evidence of acute U niversity of 8 cardiopulmonary [place] Med ica 04:28:11 disease. Preliminary Bran ch Report Dictated by Resident: Fredis Jane MD., have reviewed this study and agree with the abovereport.EXAM: XR CHEST 1 VW 03/31/2021 10:40 PM HISTORY: 41 years-old Female with PALPITATIONS, CHEST PAIN COMPARISON: none TECHNIQUE: AP view of the chest. FINDINGS: The lungs are clear. There is no focal consolidation, pleural effusion orpneumothorax. The cardiomediastinal silhouette is within normal limits. ?No acute osseousabnormalities. [facility], Radiant Results Inft User - 03/31/2021 11:29 PM CDT EXAM: XR CHEST 1 VW 03/31/2021 10:40 PMHISTORY: 41 years-old Female with PALPITATIONS, CHEST PAIN COMPARISON: noneTECHNIQUE: AP view of the chest.FINDINGS:The lungs are clear. There is no focal consolidation, pleural effusion orpneumothorax.The cardiomediastinal silhouette is within normal limits. No acute osseousabnormalities. IMPRESSIONNo evidence of acute cardiopulmonary disease.Preliminary Report Dictated by Resident: Fredis Pimentel MD., have reviewed this study and agree with the abovereport. THYROID STIMULATING HORMONE 2021-04-01 04:22:07 Test Item Value Reference Range Interpretation Comme nts TSH (test code = 8283908802) See_Comment [Automated message] The system which generated this result transmitted ref erence range: 0.45 - 4.70 mIU/L. T he reference range was not used to interpret this result as yvonne l/abnormal. Lab Interpretation (test code = Normal 99790-8) [facility] [id number] 04:03:26 Test Item Value Reference Range Interpretation Comments TROPONIN I (test 0.000 ng/mL See_Comment [Automated code = 9052402797) message] The system which generated this result transmitted reference range : <=0.034. The reference range was not used to interpret this result as normal/abnormal . VERONICA (test code = Equal or Less than VERONICA) 0.034 ng/ml---Normal ?Note: Cardiac troponin begins to rise 3-4 hours after the onset of ischemia. Repeat in 4-6 hours if the sample was drawn within 3-4 hours of the onset of the symptom and found normal. Between 0.035 and 0.120 ng/mL--- Borderline. Questionable myocardial injury or necrosis ? ?Note: Serial measurement may be necessary to confirm or exclude the diagnosis of myocardial injury or necrosis; Clinical correlation (symptoms, EKGs, imaging studies, and others) required; Repeat in 4-6 hours if clinically indicated. ? Equal or Higher than 0.121 ng/mL---Abnormal. Myocardial Injury or Necrosis Likely ? Biotin has been reported to cause a negative bias, interpret results relative to patient's use of biotin. ? Lab Interpretation Normal (test code = 71636-4) [facility]-[id number] 03:53:09 Test Item Value Reference Interpretation Comments Range D-DIMER (test code = See_Comment [Autom ated 8127397049) message] The system which generated this result transmitted reference range : <0.41 ?g/mL (FEU). The reference range was not used to interpret this result as normal/abnormal . VERONICA (test code = This test may be VERONICA) used in conjunction with a clinical pretest probability (PTP) assessment model to exclude venous thromboembolism (VTE) in patients suspected of deep venous thrombosis (DVT) and pulmonary embolism (PE) A D-Dimer value less than 0.50 ?g/ml (FEU) has a negative predicative value of 96 to 100% (95% CI)and 97 to 100% (95% CI) as an aid in the diagnosis of deep vein thrombosis (DVT) and pulmonary embolism when there is low or moderate pretest probability of PE or DVT. D-Dimer values are expressed in initial fibrinogen equivalent units (FEU)" The assay results should be used with other information, including the clinical context, in forming a diagnosis. Lab Interpretation Normal (test code = 21078-3) [facility] [place]. METABOLIC PANEL (97153)2021-04-01 03:50:08 Test Item Value Reference Range Interpretation Comments NA (test code = 139 mmol/L 135-145 1002656426) K (test code = 3.3 mmol/L 3.5-5.0 L 0785522712) CL (test code = 106 mmol/L 98-108 6287966157) CO2 TOTAL (test code = 24 mmol/L 23-31 4185968331) AGAP (test code = 2-16 7413723385) BUN (test code = 8 mg/dL 7-23 9486470931) GLUCOSE (test code = 101 mg/dL 70-110 5807459672) CREATININE (test code = 0.64 mg/dL 0.50-1.04 2398660970) TOTAL BILI (test code = 0.4 mg/dL 0.1-1.4 7981305060) CALCIUM (test code = 10.9 mg/dL 8.6-10.6 H 3836435246) T PROTEIN (test code = 8.0 g/dL 6.3-8.2 4779880660) ALBUMIN (test code = 4.3 g/dL 3.5-5.0 2351115208) ALK PHOS (test code = 85 U/L 34-122 6732404075) ALTv (test code = 16 U/L 5-35 1742-6) AST(SGOT) (test code = 25 U/L 13-40 0493498217) eGFR (test code = mL/min/1.73m2 1484668987) VERONICA (test code = VERONICA) Association of Glomerular Filtration Rate (GFR) and Staging of Kidney Disease* + --+ --+ ------+| GFR (mL/min/1.73 m2) ?| With Kidney Damage ?| ?Without Kidney Damage+ --------+ --------+ +| ?>90 ?| ?Stage one ?| ? Normal ?+ ---+ ---+ -------+| ?60-89 ?| ?Stage two ?| ? Decreased GFR ? + --+ --+ ------+| ?30-59 ?| ?Stage three ?| ? Stage three ? + --+ --+ ------+| ?15-29 ?| ?Stage four ? | ? Stage four ?+ ---+ ---+ -------+| ?<15 (or dialysis) ? ?| ?Stage five ? | ? Stage five ?+ ---+ ---+ -------+ *Each stage assumes the associated GFR level has been in effect for at least three months. ?Stages 1 to 5, with or without kidney disease, indicate chronic kidney disease. Notes: Determination of stages one and two (with eGFR >59mL/min/1.73 m2) requires estimation of kidney damage for at least three months as defined by structural or functional abnormalities of the kidney, manifested by either:Pathological abnormalities or Markers of kidney damage (including abnormalities in the composition of the blood or urine or abnormalities in imaging tests). Lab Interpretation Abnormal (test code = 95782-2) [facility] 03:49:48 Test Item Value Reference Range Interpretation Comments LIPASE (test code = 1903694140) 143 U/L 0-220 Lab Interpretation (test code = Normal 38733-6) [facility] WITH [id number] 03:41:26 Test Item Value Reference Range Interpretation Comments WBC (test code = See_Comment [Automated 8165-2) message] The sy stem which generated this result transmitted reference range : 4.30 - 11.10 10*3/?L. The reference range was not used to interpret this result as normal/abnormal . RBC (test code = See_Comment [Automated 575-6) message] The sy stem which generated this result transmitted reference range : 3.93 - 5.25 10*6/?L. The reference range was not used to interpret this result as normal/abnormal . HGB (test code = 10.2 g/dL 11.6-15.0 L 718-7) HCT (test code = 35.3 % 35.7-45.2 L 4544-3) MCV (test code = 70.2 fL 80.6-95.5 L 787-2) MCH (test code = 20.3 pg 25.9-32.8 L 785-6) MCHC (test code = 28.9 g/dL 31.6-35.1 L 786-4) RDW-SD (test code = 62.9 fL 39.0-49.9 H 58100-9) RDW-CV (test code = 26.5 % 12.0-15.5 H 788-0) PLT (test code = See_Comment H [Automated 777-3) message] The sy stem which generated this result transmitted reference range : 166 - 358 10*3/ ?L. The reference r ministerio was not used to interpret this result as normal/abnormal . MPV (test code = 9.0 fL 9.5-12.9 L 90023-4) NRBC/100 WBC (test See_Comment [Automat ed code = 4213857849) message] The system which generated this result transmitted reference range : 0.0 - 10.0 /100 WBCs. The refer ence range was not u sed to interpret th is result as normal/abnormal . NRBC x10^3 (test code <0.01 See_Comment [Auto mated = 2798622801) message] The s ystem which generated this result transmitted reference range : 10*3/?L. The reference range was not used to interpret this result as normal/abnormal . GRAN MAT (NEUT) % 58.3 % (test code = 770-8) IMM GRAN % (test code 0.20 % = 2151672050) LYMPH % (test code = 31.5 % 736-9) MONO % (test code = 8.7 % 5905-5) EOS % (test code = 0.6 % 713-8) BASO % (test code = 0.7 % 706-2) GRAN MAT x10^3(ANC) 5.20 10*3/uL 1.88-7.09 (test code = 9953945086) IMM GRAN x10^3 (test <0.03 0.00-0.06 code = 4876394053) LYMPH x10^3 (test code 2.80 10*3/uL 1.32-3.29 = 731-0) MONO x10^3 (test code 0.77 10*3/uL 0.33-0.92 = 742-7) EOS x10^3 (test code = 0.05 10*3/uL 0.03-0.39 711-2) BASO x10^3 (test code 0.06 10*3/uL 0.01-0.07 = 704-7) Lab Interpretation Abnormal (test code = 47836-6) [facility]
[2021-11-27 11:34] LABS: Absolute Lymphocytes (CBC) 1.6 K/uL (0.7-4.9); Hematocrit 22.8 % (36.0-45.0); Lymphocytes % 32.9 % (15.3-44.8); MPV 8.1 fL (7.6-11.3); RBC Red Blood Cell Count 4.01 M/uL (3.86-4.86)
[2021-11-27] MEDS ORDERED: NA CHLORIDE 0.9% 1,000 ML ONE (11:34)
[2021-11-27] MEDS ORDERED: ONDANSETRON 4 MG/2 ML VIAL ONE (11:34)
[2021-11-27] MEDS ORDERED: MECLIZINE HCL 12.5 MG TAB ONE (11:34)
[2021-11-27 11:47] LABS: BUN Blood Urea Nitrogen 7 mg/dL (7-18); Bicarbonate 24 mmol/L (21-32); Glucose Level 108 mg/dL (74-106); Potassium 3.4 mmol/L (3.5-5.1); Sodium Level 138 mmol/L (136-145)
--- NOTE | 2021-11-27 11:57 | RAD REPORT ---
EXAM DESCRIPTION: CT - Head Brain Wo Cont - 11/27/2021 11:47 am CLINICAL HISTORY: DIZZINESS COMPARISON: <Comparisons> TECHNIQUE: All CT scans are performed using dose optimization technique as appropriate and may inclu de automated exposure control or mA/KV adjustment according to patient size. FINDINGS: No intracranial hemorrhage, hydrocephalus or extra-axial fluid collection.No areas of brai n edema or evidence of midline shift. The paranasal sinuses and mastoids are clear. The calvarium is intact. IMPRESSION: No acute intracranial abnormality.
[2021-11-27 13:03] LABS: Urine Blood Negative (Negative); Urine Glucose Negative (Negative); Urine Protein Negative (Negative); Urine Specific Gravity 1.025 (1.005-1.030); Urine pH 7.5 (5.0-7.0)
[2021-11-27 13:26] LABS: Urine Amorphous Sediment 3+ /HPF (NONE SEEN); Urine Bacteria NONE SEEN /HPF (<20); Urine RBC NONE SEEN /HPF (NONE SEEN)
[2021-11-27] MEDS ORDERED: NA CHLORIDE 0.9% 100 ML ONE (14:19)
[2021-11-27 15:30] LABS: Urine Specific Gravity/Preg 1.025 (1.005-1.030)
[2021-11-27 15:36] LABS: Anisocytosis 2+; Blood Morphology Comment NOTED (NOT SEEN); Platelet Estimate INCR; Poikilocytosis 3+
[2021-11-27] MEDS ORDERED: ACETAMINOPHEN 500 MG TAB ONE (17:09)
--- NOTE | 2021-11-27 18:55 | EDPHYS ---
Physician Documentation [facility] Name: Rosmery Treadwell Age: 41 yrs Sex: Female : 1980 Arrival Date: 11/27/2021 Time: 10:50 Bed 2 Private MD: ED Physician Leoncio Salas HPI: 11/27 12:06 This 41 yrs old Black Female presents to ER via Ambulatory with complaints of Dizziness.rn 12:06 The patient presents with dizziness, lightheadedness. The patient presents with sense rn of spinning. Onset: The symptoms/episode began/occurred this morning. Context: occurred at home, occurred while the patient was getting up from bed. Modifying factors: The symptoms are alleviated by lying down, the symptoms are aggravated by standing up, changing position. Associated signs and symptoms: Pertinent positives: shortness of breath, Pertinent negatives: abdominal pain, ataxia, chest pain, head injury, headache, seizure, syncope, tingling, vomiting. Severity of symptoms: At their worst the symptoms were mild in the emergency department the symptoms have improved. The patient has not experienced similar symptoms in the past. The patient has not recently seen a physician. Patient reports woke up today and when getting out of bed felt lightheaded and the room was spinning. Patient with chronic anemia, has not been taking iron supplementation as she is supposed to. Denies any blood in the stool or hematemesis. 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 Denies chest pain. Reports mild shortness of breath. 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 - Social history:: Smoking status: Patient denies any tobacco usage or history of. - Family history:: not pertinent. - Hospitalizations: : No recent hospitalization is reported. ROS: 12:06 Constitutional: Negative for fever, chills, and weight loss, Eyes: Negative for injury, rn pain, redness, and discharge, Neck: Negative for injury, pain, and swelling, Cardiovascular: Negative for chest pain, palpitations, and edema, Respiratory: Negative for cough, wheezing, and pleuritic chest pain, Abdomen/GI: Negative for abdominal pain, nausea, vomiting, diarrhea, and constipation, Back: Negative for injury and pain, : Negative for injury, discharge, and swelling, MS/Extremity: Negative for injury and deformity, Skin: Negative for injury, rash, and discoloration, Neuro: Negative for headache, weakness, numbness, tingling, and seizure. Exam: 12:06 Constitutional: This is a well developed, well nourished patient who is awake, alert, rn and in no acute distress. Head/Face: Normocephalic, atraumatic. Eyes: Periorbital areas with no swelling, redness, or edema. Cardiovascular: Regular rate and rhythm. No pulse deficits. Respiratory: No increased work of breathing, no retractions or nasal flaring. Abdomen/GI: Soft, non-tender Skin: Warm, dry MS/ Extremity: Pulses equal, no cyanosis. Neuro: Awake and alert, GCS 15 Vital Signs: 10:57 BP 128 / 67; Pulse 78; Resp 18; Temp 97.8(O); Pulse Ox 100% ; Weight 81.65 kg; Height 5 winter ft. 0 in. (152.40 cm); 13:23 BP 115 / 68; Pulse 68; Resp 16; Pulse Ox 99% on R/A; ic1 14:00 BP 100 / 55; Pulse 65; Resp 15; Pulse Ox 100% ; jl7 14:45 BP 97 / 53; Pulse 62; Resp 14; Pulse Ox 100% ; jl7 14:45 jl7 17:00 BP 110 / 59; Pulse 67; Resp 15; Pulse Ox 100% ; jl7 17:00 jl7 17:07 BP 110 / 59; rn 18:06 BP 113 / 78; Pulse 73; Resp 16; Pulse Ox 96% ; ic1 18:58 BP 107 / 65; Pulse 63; Resp 15 S; Temp 97.5(TE); Pulse Ox 100% on R/A; Pain 0/10; jl7 10:57 Body Mass Index 35.15 (81.65 kg, 152.40 cm) winter 14:45 See transfusion flow sheet for vital signs jl7 17:00 See transfusion flow sheet for vital signs jl7 MDM: 11:01 Patient medically screened. rn 18:46 Differential diagnosis: Anemia, vertigo. 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 Counseling: I had a detailed discussion with the patient and/or guardian regarding: the historical points, exam findings, and any diagnostic results supporting the discharge/admit diagnosis, lab results, radiology results, the need for outpatient follow up, to return to the emergency department if symptoms worsen or persist or if there are any questions or concerns that arise at home. Response to treatment: the patient's symptoms have markedly improved after treatment. ED course: Patient markedly improved after starting blood transfusion. Had a long talk with her regarding need to continue iron supplementation as with each menstrual cycle is going to lose blood without the ability to replace what is lost. She has been placed on iron in the past and just stopped taking it. No active bleeding, states menstrual cycle is almost done and is spotting only. Stable vitals. Tolerated blood transfusion well.. 11/27 11:18 Order name: CBC with Diff; Complete Time: 17:42 11/27 11:18 Order name: Basic Metabolic Panel; Complete Time: 12:02 11/27 11:18 Order name: Urine Microscopic Only; Complete Time: 15:24 11/27 11:45 Order name: Type And Screen 11/27 11:46 Order name: Manual Differential; Complete Time: 17:42 [facility] 11/27 12:07 Order name: Bb Add On 11/27 11:18 Order name: CT Head Brain wo Cont; Complete Time: 12:02 11/27 12:54 Order name: Packed RBC Leukored [facility] 11/27 13:04 Order name: Urine Dipstick-Ancillary; Complete Time: 15:24 [facility] 11/27 14:48 Order name: Urine --Ancillary (enter results) 11/27 14:49 Order name: Urine --Ancillary; Complete Time: 17:42 [facility] 11/27 11:18 Order name: IV Start; Complete Time: 11:58 11/27 11:18 Order name: Urine Dipstick-Ancillary (obtain specimen); Complete Time: 11:58 11/27 11:18 Order name: Urine Test (obtain specimen); Complete Time: 11:58 11/27 11:18 Order name: EKG; Complete Time: 11:19 rn 11/27 11:18 Order name: EKG - Nurse/Tech; Complete Time: 11:58 rn Administered Medications: 11:45 Drug: Meclizine 50 mg Route: PO; jl7 12:30 Follow up: Response: No adverse reaction; Marked relief of symptoms jl7 11:45 Drug: NS 0.9% 1000 ml Route: IV; Rate: 1000 ml; Site: right antecubital; jl7 13:00 Follow up: Response: No adverse reaction; IV Status: Completed infusion; IV Intake: jl7 1000ml 11:45 Drug: Zofran (Ondansetron) 4 mg Route: IVP; Site: right antecubital; jl7 12:00 Follow up: Response: No adverse reaction; Nausea is decreased jl7 16:55 Drug: Tylenol 1000 mg Route: PO; jl7 18:58 Follow up: Response: No adverse reaction; Pain is decreased jl7 Disposition Summary: 11/27/21 18:54 Discharge Ordered Location: Home rn Problem: an ongoing problem rn Symptoms: have improved rn Condition: Stable rn Diagnosis - Anemia, unspecified rn - Dizziness and giddiness rn Followup: rn - With: Private Physician - When: As needed - Reason: Recheck today's complaints, Re-evaluation by your physician Discharge Instructions: - Discharge Summary Sheet rn - Anemia rn - Dizziness rn Forms: - Medication Reconciliation Form rn - Thank You Letter rn - 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
--- NOTE | 2021-11-27 18:55 | ER ---
Nurse's Notes [facility] Name: Rosmery Treadwell Age: 41 yrs Sex: Female : 1980 Arrival Date: 11/27/2021 Time: 10:50 Bed 2 Private MD: Diagnosis: Anemia, unspecified;Dizziness and giddiness Presentation: 11/27 10:57 Chief complaint: Patient states: pt reported right chest when she cough and deep unger breath. dizziness feeling like the room is spinning. Coronavirus screen: Vaccine status: Patient reports being unvaccinated. Ebola Screen: Patient denies travel to an Ebola-affected area in the 21 days before illness onset. Initial Sepsis Screen: Does the patient meet any 2 criteria? No. Patient's initial sepsis screen is negative. Does the patient have a suspected source of infection? No. Patient's initial sepsis screen is negative. Risk Assessment: Do you want to hurt yourself or someone else? Patient reports no desire to harm self or others. Onset of symptoms was November 24, 2021. 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 - Social history:: Smoking status: Patient denies any tobacco usage or history of. - Family history:: not pertinent. - Hospitalizations: : No recent hospitalization is reported. Screenin:00 Abuse screen: Denies threats or abuse. Denies injuries from another. Nutritional jl7 screening: No deficits noted. Tuberculosis screening: No symptoms or risk factors identified. Fall Risk IV access (20 points). Gait- Weak (10 pts.). Total Abdi Fall Scale indicates Low Risk Score (25-44 pts). Fall prevention measures have been instituted. Side Rails Up X 2 Placed close to Nursing Station Frequent Obs/Assesments occuring Family Present and informed to notify staff if they need to leave bedside As available Patient and Family Educated on Fall Prevention Program and strategies. Assessment: 11:00 General: Appears in no apparent distress. uncomfortable, Behavior is calm, cooperative, jl7 appropriate for age. Pain: Complains of pain in anterior aspect of right upper chest Pain radiates to right scapular area Pain currently is 8 out of 10 on a pain scale. Quality of pain is described as aching, Pain began 1 day ago. Is episodic, Aggravated by taking a deep breath. 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 Full function Gait is unsteady, Speech is normal, Facial symmetry appears normal, Intact Reports dizziness, with position change. Cardiovascular: Heart tones present Patient's skin is warm and dry. Rhythm is regular. Respiratory: Airway is patent Respiratory effort is even, unlabored, Respiratory pattern is regular, symmetrical. GI: Reports nausea. : Denies burning with urination. Derm: Skin is dry, Skin is pale, Skin temperature is cool. 11:30 Reassessment: Assisted pt to restroom via wheelchair. jl7 12:30 Reassessment: Patient appears in no apparent distress at this time. Patient and/or jl7 family updated on plan of care and expected duration. Pain level reassessed. Patient states feeling better. Patient states symptoms have improved. 14:00 Reassessment: Patient appears in no apparent distress at this time. No changes from jl7 previously documented assessment. Patient and/or family updated on plan of care and expected duration. Pain level reassessed. Patient is alert, oriented x 3, equal unlabored respirations, skin warm/dry/pink. 14:45 Reassessment: Patient appears in no apparent distress at this time. No changes from jl7 previously documented assessment. Patient is alert, oriented x 3, equal unlabored respirations, skin warm/dry/pink. First unit of blood infusion started at this time. 16:45 Reassessment: First unit of blood infusion complete. Pt ambulated to bathroom with jl7 steady gate. 16:50 Reassessment: Pt ambulated back to room, reports mild UNGER after ambulating, ERD jl7 notified, see MAR for orders. 17:00 Reassessment: Second unit of blood infusion started. jl7 18:58 Reassessment: Patient appears in no apparent distress at this time. No changes from jl7 previously documented assessment. Patient and/or family updated on plan of care and expected duration. Pain level reassessed. Patient is alert, oriented x 3, equal unlabored respirations, skin warm/dry/pink. Patient denies pain at this time. Patient states feeling better. Vital Signs: 10:57 BP 128 / 67; Pulse 78; Resp 18; Temp 97.8(O); Pulse Ox 100% ; Weight 81.65 kg; Height 5 unger ft. 0 in. (152.40 cm); 13:23 BP 115 / 68; Pulse 68; Resp 16; Pulse Ox 99% on R/A; ic1 14:00 BP 100 / 55; Pulse 65; Resp 15; Pulse Ox 100% ; jl7 14:45 BP 97 / 53; Pulse 62; Resp 14; Pulse Ox 100% ; jl7 14:45 jl7 17:00 BP 110 / 59; Pulse 67; Resp 15; Pulse Ox 100% ; jl7 17:00 jl7 17:07 BP 110 / 59; rn 18:06 BP 113 / 78; Pulse 73; Resp 16; Pulse Ox 96% ; ic1 18:58 BP 107 / 65; Pulse 63; Resp 15 S; Temp 97.5(TE); Pulse Ox 100% on R/A; Pain 0/10; jl7 10:57 Body Mass Index 35.15 (81.65 kg, 152.40 cm) unger 14:45 See transfusion flow sheet for vital signs jl7 17:00 See transfusion flow sheet for vital signs jl7 ED Course: 10:50 Patient arrived in ED. am2 10:56 Itzel Zamudio, RN is Primary Nurse. unger 10:58 Triage completed. unger 10:59 Arm band placed on left wrist. unger 11:00 Patient has correct armband on for positive identification. Placed in gown. Bed in low jl7 position. Call light in reach. Side rails up X 1. potline monitor on. Pulse ox on. NIBP on. Warm blanket given. 11:00 Initial lab(s) drawn, by me, sent to lab. Urine collected: clean catch specimen, jl7 cloudy, EKG done, by ED staff, reviewed by Leoncio Salas MD. Inserted saline lock: 20 gauge in right antecubital area, using aseptic technique. Blood collected. Patient maintains SpO2 saturation greater than 95% on room air. 11:01 Leoncio Salas MD is Attending Physician. rn 11:43 Boaz Zapata, RN is Primary Nurse. jl7 11:47 CT Head Brain wo Cont In Process Unspecified. EDMS 18:58 No provider procedures requiring assistance completed. IV discontinued, intact, jl7 bleeding controlled, No redness/swelling at site. Pressure dressing applied. Administered Medications: 11:45 Drug: Meclizine 50 mg Route: PO; jl7 12:30 Follow up: Response: No adverse reaction; Marked relief of symptoms jl7 11:45 Drug: NS 0.9% 1000 ml Route: IV; Rate: 1000 ml; Site: right antecubital; jl7 13:00 Follow up: Response: No adverse reaction; IV Status: Completed infusion; IV Intake: jl7 1000ml 11:45 Drug: Zofran (Ondansetron) 4 mg Route: IVP; Site: right antecubital; jl7 12:00 Follow up: Response: No adverse reaction; Nausea is decreased jl7 16:55 Drug: Tylenol 1000 mg Route: PO; jl7 18:58 Follow up: Response: No adverse reaction; Pain is decreased jl7 Medication: 19:07 Blood products: PRBCs X 2 units given. jl7 Intake: 13:00 IV: 1000ml; Total: 1000ml. jl7 Outcome: 18:54 Discharge ordered by . rn 18:58 Discharged to home ambulatory. jl7 18:58 Condition: stable 18:58 Discharge instructions given to patient, Instructed on discharge instructions, follow up and referral plans. Demonstrated understanding of instructions, follow-up care. 19:07 Patient left the ED. jl7 Signatures: Dispatcher [employer] EDMS Leoncio Salas MD MD rn Leal, Jahala, RN RN jl7 April Perez am2 Margie-StageItzel smalls RN Milagros Rodgers RN RN ic1 Corrections: (The following items were deleted from the chart) 15:00 12:00 Reassessment: Patient appears in no apparent distress at this time. No changes jl7 from previously documented assessment. Patient and/or family updated on plan of care and expected duration. Pain level reassessed. Patient is alert, oriented x 3, equal unlabored respirations, skin warm/dry/pink. jl7 15:00 13:00 Reassessment: Patient appears in no apparent distress at this time. No changes jl7 from previously documented assessment. Patient and/or family updated on plan of care and expected duration. Pain level reassessed. Patient is alert, oriented x 3, equal unlabored respirations, skin warm/dry/pink. jl7 : 17:00 BP 118 / 56; Pulse 60bpm; Resp 15bpm; Pulse Ox 100%; jl7 jl7 : 17:00 See transfusion flow sheet for vital signs; jl7 jl7
[2021-11-28 01:47] VITALS: BP 107/65; TEMP 97.5; O2SAT 100
--- NOTE | 2021-11-28 08:04 | EKG ---
Test Date: 2021-11-27 Test Time: 11:04:42 Supervisor Reclamation: ISHA MEASUREMENT RESULTS: Intervals: Rate: 72 ID: [id number] QRSD: 80 QT: 366 QTc: 400 Griffin: P: 51 ID: [id number] QRS: 39 T: 18 INTERPRETIVE STATEMENTS: Normal sinus rhythm with sinus arrhythmia Normal ECG Compared to ECG 03/23/2021 00:22:08 No significant changes Electronically Signed On 11-28-21 08:02:48 MINIATURE SET DESIGNER by Farrukh Ellison
== END 2021-11-27 19:07 | disposition home or self-care (01) ==
LOC: ER 10:45
DX: D64.9 Anemia, unspecified (principal); I48.91 Unspecified atrial fibrillation
CPT/HCPCS: 96361; 93005; 85025; 80048; 36415; 86900; 86850; 81025; 86901; 70450; 36430; 96374; 99285; J8597; P9016 ×2; J7030; J2405; 81003; 81015

== ENCOUNTER 2022-03-04 17:40 | Emergency (ER) | payer OTHER, SELFPAY ==
--- OUTSIDE RECORDS SUMMARY | 2022-03-04 17:44 | XMS REPORT | Continuity of Care Document ---
:1980 Author Organization [facility] t Address [address] [place] [address] Care Team Providers Name Role Phone Desiree MORE, S Attending Clinician Olinda VAZ Attending Clinician Unavailable Doctor Unassigned, Name Attending Clinician Unavailable Payers Payer Name Policy Type Policy Number Effective Date Expiration Date Gerard flakita [employer] [id number] 2014 00:00:00 ICF [id number] 2014 00:00:00 [employer] [id number] 2014 CARE 00:00:00 Advance Directives Directive Decision Effective Termination Comments Source Date Date Healthcare Agents on N/A [facility] FileNameRelationSycamore Medical Centerealth[facility] Agent Medical RelationshipCommunicationCandie [facility] [phone] (Mobile) Problems Condition Condition Condition Status Onset Resolution Last Treating Co mments Source Name Details Category Date Date Treatment Clinician Date Well woman Well woman Disease Active 2019-0 U nivers exam exam 3-26 ity of 00:00: [place] 00 [facility] Contracept Contracept Disease Active 2019-0 U nivers lisa lisa 3-26 ity of management management [place] [facility] Contracept Contracept Disease Active 2019-0 U nivers lisa lisa 3-26 ity of management management [place] [facility] History of History of Disease Active 2014-0 U nivers atrial atrial 1-28 ity of fibrillati fibrill[place] [facility] Obesity Obesity Disease Active Overview: Univ ers (BMI (BMI 1-28 Formattin ity of 30-39.9) 30-39.9) 00:00: g of this Ben as 00 note Medical might be Branch different from the original. 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 Engineer Utility Tubal Tubal Disease Active Univers ligation ligation 1-28 ity of status status 00:00: [place] [facility] Tubal Tubal Disease Active Univers ligation ligation 1- ity of status status 00:00: [place] [facility] Allergies, Adverse Reactions, Alerts Allergy Allergy Status Severity Reaction(s) Onset Inactive Treating Comm ents Source Name Type Date Date Clinician NO KNOWN Drug Active Univers ALLERGIE Class ity of S [facility] Social History Social Habit Start Date Stop Date Quantity Comments Source Exposure to Not sure [facility] SARS-CoV-2 [facility] (event) Branch Alcohol intake 2021-03-31 2021-03-31 Current [facility] 00:00:00 00:00:00 non-drinker of [facility] alcohol Branch (finding) Tobacco use and 2021-03-31 2021-03-31 Never used Universit y of exposure 00:00:00 00:00:00 [facility] Sex Assigned At [birth year] Universit y of 00:00:00 00:00:00 [facility] Smoking Status Start Date Stop Date Source Never smoker [facility] Medications Ordered Filled Start Stop Current Ordering Indication Dosage Frequency Signature Comments Components Source Medication Medication Date Date Medication? Clinician (SIG) Name Name metoprolol Yes 25mg Take 25 mg U nivers succinate 3-26 by mouth ity of XL (TOPROL 13:21: daily. [place] XL) 25 mg 31 Medical 24 hr Branch tablet metoprolol Yes 25mg Take 25 mg U nivers succinate 3-26 by mouth ity of XL (TOPROL 13:21: daily. [place] XL) 25 mg 31 Medical 24 hr Branch tablet Occult Yes Use as Univers Blood 3-05 directed ity of (HEMATEST) 00:00: [place] Tab 00 Medical Branch Occult Yes Use as Univers Blood 3-05 directed ity of (HEMATEST) 00:00: [place] Tab 00 Medical Branch ferrous Yes 325mg Take 1 Tab Uni vers sulfate 325 2-13 by mouth 3 it y of mg (65 mg 00:00: (three) [place] iron) 00 times Medical tablet daily with Branch meals. ferrous 2015 Yes 325mg Take 1 Tab Uni vers sulfate 325 2-13 by mouth 3 it y of mg (65 mg 00:00: (three) [place] iron) 00 times Medical tablet daily with Branch meals. Immunizations Ordered Filled Immunization Date Status Comments Sour e Immunization Name Name [facility] 2014-12-02 Completed [facility] 00:00:00 [facility] 2014-12-02 Completed [facility] 00:00:00 [facility] Vital Signs Vital Name Observation Time Observation Value Comments Source Systolic blood 2021-04-01 05:21:00 111 mm[Hg[facility] Diastolic blood 2021-04-01 05:21:00 69 mm[Hg] [facility] Heart rate 2021-04-01 05:21:00 67 /min [facility] Respiratory rate 2021-04-01 05:21:00 21 /min [facility] Oxygen saturation in 2021-04-01 05:21:00 98 /min [facility] Arterial blood by [facility] Pulse oximetry [facility] Body temperature 2021-04-01 01:56:00 37.33 [facility] Body height 2021-04-01 01:56:00 149.9 cm [facility] Body weight 2021-04-01 01:56:00 83.915 kg [facility] BMI 2021-04-01 01:56:00 37.37 kg/m2 [facility] Procedures Procedure Date / Time Performing Clinician Source Performed XR CHEST 1 VW 2021-04-01 03:41:39 Sofía Ramírez [facility] CBC WITH DIFF 2021-04-01 03:19:00 Sofía Ramírez [facility] D-DIMER 2021-04-01 03:19:00 Sofía Ramírez [facility] LIPASE 2021-04-01 03:19:00 Sofía Ramírez [facility] TROPONIN I 2021-04-01 03:19:00 Sofía Ramírez [facility] THYROID STIMULATING 2021-04-01 03:19:00 Sofía Ramírez [facility] HORMONE [facility] Branch COMP. METABOLIC PANEL 2021-04-01 03:19:00 Sofía Ramírez [facility] ([id number]) Medical Branch NOTICE OF PRIVACY 2021-04-01 01:44:44 Doctor Yeh [facility] PRACTICES [place] [facility] CONSENT/REFUSAL FOR 2021-04-01 01:44:15 Doctor Ruba [facility] DIAGNOSIS AND TREATMENT [place] [facility] OP CORRESPONDENCE 2019-06-03 05:01:00 Doctor Yeh [facility] [place] [facility] Encounters Start End Encounter Admission Attending Care Care Encounter Source Date/Time Date/Time Type Type Clinicians Facility Department ID 2021-09-04 Emergency [facility] [id number] [facility] 21:51:42 [facility] 2021-03-31 2021-04-01 Emergency [facility] [id number] [facility] 21:00:00 00:24:00 Sofía Delatorre [id number] [facility] [id number] [facility] [id number] [place] [address] Branch 2021-02-14 2021-02-14 Outpatient R AKINSIPE, [facility] [id number] Univers 08:15:00 08:15:00 RICK [id number] ity o f [facility] 2021-02-14 2021-02-14 Outpatient R AKINSIPE, [facility] [id number] Univers 08:15:00 08:15:00 RICK ity o f [facility] 2019-06-03 2019-06-03 Orders Doctor JOHNSON [id number] 00:00:00 00:00:00 Only UnassignedWILLIAM [id number] [facility] [id number] 2019-06-03 2019-06-03 Orders Doctor JOHNSON [id number] Univers 00:00:00 00:00:00 Only Unassigned, WILLIAM [id number] ity of [place] [facility] [id number] Ben as [id number] [place] [address] Branch Results Test Description Test Time Test Comments Results Result Sourc e Comments XR CHEST 1 VW 2021-03-06 No evidence of acute U niversity of 8 cardiopulmonary [place] Med ical 04:28:11 disease. Preliminary Bran ch Report Dictated [...] Interpretation Comme nts TSH (test code = 2569328113) See_Comment [Automated message] The system which generated this result transmitted ref erence range: 0.45 - 4.70 mIU/L. T he reference range was not used to interpret this result as yvonne l/abnormal. Lab Interpretation (test code = Normal 23225-7) [facility] [id number] 04:03:26 Test Item Value Reference Range Interpretation Comments TROPONIN I (test 0.000 ng/mL See_Comment [Automated code = 1812833415) message] The system which generated this result [...] ? Lab Interpretation Normal (test code = 61968-9) [id number] 03:53:09 Test Item Value Reference Interpretation Comments Range D-DIMER (test code = See_Comment [Autom ated [id number]) message] The system which generated this result [...] diagnosis. Lab Interpretation Normal (test code = 21867-5) [facility]. METABOLIC PANEL ([id number])2021-04-01 03:50:08 Test Item Value Reference Range Interpretation Comments NA (test code = 139 mmol/L 135-145 1095343491) K (test code = 3.3 mmol/L 3.5-5.0 L 2446123491) CL (test code = 106 mmol/L 98-108 0430368462) CO2 TOTAL (test code = 24 mmol/L 23-31 4673972477) AGAP (test code = 2-16 9705650693) BUN (test code = 8 mg/dL 7-23 0654923360) GLUCOSE (test code = 101 mg/dL 70-110 3649940677) CREATININE (test code = 0.64 mg/dL 0.50-1.04 2415821917) TOTAL BILI (test code = 0.4 mg/dL 0.1-1.1 2785997574) CALCIUM (test code = 10.9 mg/dL 8.6-10.6 H 5523557231) T PROTEIN (test code = 8.0 g/dL 6.3-8.2 1412442161) ALBUMIN (test code = 4.3 g/dL 3.5-5.0 1481299438) ALK PHOS (test code = 85 U/L 34-122 1102415182) ALTv (test code = 16 U/L 5-35 1742-6) AST(SGOT) (test code = 25 U/L 13-40 1112910583) eGFR (test code = mL/min/1.73m2 7792605299) VERONICA (test code = VERONICA) Association of [...] tests). Lab Interpretation Abnormal (test code = 23421-1) [facility] 03:49:48 Test Item Value Reference Range Interpretation Comments LIPASE (test code = 5556832407) 143 U/L 0-220 Lab Interpretation (test code = Normal 02606-2) [facility] WITH [id number] 03:41:26 Test Item Value Reference Range Interpretation Comments WBC (test code = See_Comment [Automated 8055-2) message] The sy stem which generated this result transmitted reference range : 4.30 - 11.10 10*3/?L. The reference range was not used to interpret this result as normal/abnormal . RBC (test code = See_Comment [Automated 242-8) message] The sy stem which generated this [...] (test code = 62.9 fL 39.0-49.9 H 78160-3) RDW-CV (test code = 26.5 % 12.0-15.5 H 788-0) PLT (test code = See_Comment H [Automated 777-3) message] The sy stem which generated this result transmitted reference range : 166 - 358 10*3/ ?L. The reference r ministerio was not used to interpret this result as normal/abnormal . MPV (test code = 9.0 fL 9.5-12.9 L 24624-7) NRBC/100 WBC (test See_Comment [Automat ed code = 3957571958) message] The system which generated this result transmitted reference range : 0.0 - 10.0 /100 WBCs. The refer ence range was not u sed to interpret th is result as normal/abnormal . NRBC x10^3 (test code <0.01 See_Comment [Auto mated = 3525193417) message] The s ystem which generated this result transmitted reference range : 10*3/?L. The reference range was not used to interpret this result as normal/abnormal . GRAN MAT (NEUT) % 58.3 % (test code = 770-8) IMM GRAN % (test code 0.20 % = 5283616099) LYMPH % (test code = 31.5 % 736-9) MONO % (test code = 8.7 % 5905-5) EOS % (test code = 0.6 % 713-8) BASO % (test code = 0.7 % 706-2) GRAN MAT x10^3(ANC) 5.20 10*3/uL 1.88-7.09 (test code = 4694972623) IMM GRAN x10^3 (test <0.03 0.00-0.06 code = 0439575457) LYMPH x10^3 (test code 2.80 10*3/uL 1.32-3.29 = 731-0) MONO x10^3 (test code 0.77 10*3/uL 0.33-0.92 = 742-7) EOS x10^3 (test code = 0.05 10*3/uL 0.03-0.39 711-2) BASO x10^3 (test code 0.06 10*3/uL 0.01-0.07 = 704-7) Lab Interpretation Abnormal (test code = 67109-4) [facility]
[2022-03-04 18:13] LABS: Urine Blood Negative (Negative); Urine Glucose Negative (Negative); Urine Protein Negative (Negative); Urine Specific Gravity 1.015 (1.005-1.030); Urine pH 7.5 (5.0-7.0)
[2022-03-04 18:19] LABS: Absolute Lymphocytes (CBC) 2.4 K/uL (0.7-4.9); Lymphocytes % 25.1 % (15.3-44.8); MPV 6.8 fL (7.6-11.3); RBC Red Blood Cell Count 4.66 M/uL (3.86-4.86)
[2022-03-04 18:26] LABS: Protime INR 1.06
[2022-03-04 18:45] LABS: Urine Bacteria <20 /HPF (<20); Urine RBC <5 /HPF (NONE SEEN)
[2022-03-04 18:49] LABS: Albumin 3.7 g/dL (3.4-5.0); Bilirubin Direct 0.1 mg/dL (0-0.2); Bilirubin Total 0.3 mg/dL (0.2-1.0); Magnesium 2.1 mg/dL (1.8-2.4); T3 Free 2.26 pg/mL (2.18-3.98); Thyroid Stimulating Hormone 2.28 uIU/mL (0.360-3.740); Troponin High Sensitivity 3.6 pg/mL (<58.9)
[2022-03-04 18:52] LABS: Barbiturates NEGATIVE (NEGATIVE); Benzodiazepines NEGATIVE (NEGATIVE); Cocaine NEGATIVE (NEGATIVE); METHAMPHETAM NEGATIVE (NEGATIVE); Methadone NEGATIVE (NEGATIVE); Opiates NEGATIVE (NEGATIVE); Phencyclidine NEGATIVE (NEGATIVE); THC Cannibis NEGATIVE (NEGATIVE)
[2022-03-04] MEDS ORDERED: METOPROLOL TAR 25 MG TAB ONE (18:55)
[2022-03-04 19:22] LABS: Blood Morphology Comment NOTED (NOT SEEN); Hypochromasia 2+; Platelet Estimate INCR; White Blood Cell Scan OK (OK)
--- NOTE | 2022-03-04 19:30 | RAD REPORT ---
EXAM DESCRIPTION: RAD - Chest Single View - 03/04/2022 7:03 pm CLINICAL HISTORY: PALPITATIONS COMPARISON: Portable 03/22/2021 TECHNIQUE: AP portable chest image was obtained 03/04/2022 7:03 pm . FINDINGS: Lungs are clear. Heart and vasculature are normal. No measurable pleural effusion and no p neumothorax. No acute bony abnormality seen. No acute aortic findings suspected. IMPRESSION: No acute cardiopulmonary process. No significant change from comparison study.
--- NOTE | 2022-03-04 19:38 | RAD REPORT ---
EXAM DESCRIPTION: CT - Chest For Pe Angio - 03/04/2022 7:17 pm CLINICAL HISTORY: palpitations COMPARISON: Chest Single View dated 03/04/2022 TECHNIQUE: Dynamically enhanced 3 mm thick images of the chest were obtained during administration o f approximately 150mL Isovue 370 IV contrast. Coronal and oblique MIP reconstruction images were gene rated and reviewed. Exam utilizes a protocol to evaluate the pulmonary arterial tree. All CT scans are performed using dose optimization technique as appropriate and may include automated exposure control or mA/KV adjustment according to patient size. FINDINGS: No pulmonary emboli are identified. The aorta as imaged shows no acute or suspicious finding. No pericardial thickening or effusion. No infiltrate or mass in the lung parenchyma. No pleural effusion or pleural thickening. No mediastinal or hilar suspicious masses. No chest wall masses or abnormal axillary lymphadenopathy. IMPRESSION: No pulmonary emboli identified. No other significant or suspicious findings.
[2022-03-04 19:39] LABS: SARS-COV-2 RT PCR NEGATIVE (NEGATIVE)
[2022-03-04] MEDS ORDERED: POTASSIUM 25 MEQ EFFERV TAB ONE (20:36)
[2022-03-04] MEDS ORDERED: KCL 20 MEQ/100 mL IVPB 100 ML IV ONE (20:37)
[2022-03-04] MEDS ORDERED: NA CHLORIDE 0.9% 1,000 ML ONE (20:48)
[2022-03-04] MEDS ORDERED: ASPIRIN EC 81 MG TAB PO ONE (21:05)
[2022-03-04 22:03] LABS: Urine Specific Gravity/Preg 1.015 (1.005-1.030)
[2022-03-04] MEDS ORDERED: NA CHLORIDE 0.9% 500 ML ONE (22:13)
[2022-03-04 22:16] LABS: Urine Specific Gravity/Preg 1.005 (1.005-1.030)
--- NOTE | 2022-03-04 22:59 | EDPHYS ---
Physician Documentation [facility] Name: Rosmery Treadwell Age: 42 yrs Sex: Female : 1980 Arrival Date: 03/04/2022 Time: 17:49 Bed 19 Private MD: ED Physician Mauro Larsen HPI: 03/04 18:00 This 42 yrs old Black Female presents to ER via EMS with complaints of Palpitations. cp 18:00 The patient presents with a history of heart racing. Context: The symptoms occur at cp rest. Onset: The symptoms/episode began/occurred today. 18:00 Duration: The patient or guardian reports a single episode, that is still ongoing. cp 18:00 Associated signs and symptoms: Pertinent negatives: anxiety, chest pain, fever, cp lightheadedness, SOB, syncope, vomiting. Severity of symptoms: in the emergency department the symptoms are unchanged despite home interventions. Patient reports history of a-fib in the past, anemia requiring transfusion several months ago. Patient reports she is not currently on any prescribed meds for a-fib or anemia. Historical: - Allergies: 17:52 No Known Allergies; winter - Home Meds: 17:52 Iron CR Oral [Active]; winter - PMHx: 17:52 Anemia; Atrial Fib; winter - Immunization history:: Adult Immunizations up to date. - Social history:: Smoking status: Patient denies any tobacco usage or history of. ROS: 18:05 Constitutional: Negative for body aches, chills, fever, poor PO intake. cp 18:05 Eyes: Negative for injury, pain, redness, and discharge. cp 18:05 ENT: Negative for drainage from ear(s), ear pain, sore throat, difficulty swallowing, difficulty handling secretions. 18:05 Cardiovascular: Positive for palpitations, Negative for chest pain, edema. 18:05 Respiratory: Negative for cough, shortness of breath, wheezing. 18:05 Abdomen/GI: Negative for abdominal pain, nausea, vomiting, and diarrhea, constipation. 18:05 Back: Negative for pain at rest, pain with movement. 18:05 Neuro: Negative for altered mental status, dizziness, headache, syncope, weakness. 18:05 All other systems are negative. Exam: 18:10 Constitutional: The patient appears in no acute distress, alert, awake, cp non-diaphoretic, non-toxic, well developed, well nourished. 18:10 Head/Face: Normocephalic, atraumatic. cp 18:10 Eyes: Periorbital structures: appear normal, Conjunctiva: normal, no exudate, no injection, Sclera: no appreciated abnormality, Lids and lashes: appear normal, bilaterally. 18:10 ENT: External ear(s): are unremarkable, Nose: is normal, Mouth: Lips: moist, Oral mucosa: pink and intact, moist, Posterior pharynx: Airway: no evidence of obstruction, patent. 18:10 Neck: ROM/movement: is normal, is supple, without pain, no range of motions limitations. 18:10 Chest/axilla: Inspection: normal, Palpation: is normal, no crepitus, no tenderness. 18:10 Cardiovascular: Rate: tachycardic, Rhythm: irregular, Edema: is not appreciated, JVD: is not appreciated. 18:10 Respiratory: the patient does not display signs of respiratory distress, Respirations: normal, no use of accessory muscles, no retractions, labored breathing, is not present, Breath sounds: are clear throughout, no decreased breath sounds, no stridor, no wheezing. 18:10 Abdomen/GI: Inspection: abdomen appears normal, Bowel sounds: active, all quadrants, Palpation: abdomen is soft and non-tender, in all quadrants, rebound tenderness, is not appreciated, voluntary guarding, is not appreciated, involuntary guarding, is not appreciated. 18:10 Back: pain, is absent, ROM is normal. 18:10 Neuro: Orientation: to person, place \\T\\ time. Mentation: is normal, Cerebellar function: is grossly normal, Motor: moves all fours, strength is normal, Sensation: is normal. 18:20 ECG was reviewed by the Attending Physician. cp 22:45 ECG was reviewed by the Attending Physician. cp Vital Signs: 17:49 BP 148 / 75; Pulse 112; Resp 19; Temp 98.2(O); Pulse Ox 100% on R/A; Weight 79.38 kg; winter Height 5 ft. (152.40 cm); 20:25 BP 105 / 58; Pulse 75; Resp 16; Pulse Ox 100% on R/A; Pain 0/10; abraham 22:11 BP 103 / 78; Pulse 84; Resp 16; Pulse Ox 100% on R/A; Pain 0/10; abraham 22:43 BP 106 / 70; Pulse 72; Resp 16; Temp 97.5; Pulse Ox 100% on R/A; Pain 0/10; abraham 17:49 Body Mass Index 34.18 (79.38 kg, 152.40 cm) winter MDM: 17:52 Patient medically screened. cp 20:51 Physician consultation: Farrukh Ellison MD was contacted at 20:51, regarding consult, cp patient's condition, and will see patient in office, as walk-in on Sunday or Sunday \\T\\1300, patient can decide. Wants patient to take daily baby aspirin and Metoprolol for rate control. 22:59 Data reviewed: vital signs, nurses notes, lab test result(s), EKG, radiologic studies, cp CT scan, plain films, I have discussed the patient's presentation/case with the attending Emergency Department Physician; and as a result, I will discharge patient. 22:59 Differential diagnosis: arrythmia, dehydration, stress disorder, illegal drugs, anemia, cp hyperthyroidism. Test interpretation: by ED physician or midlevel provider: ECG, plain radiologic studies. Counseling: I had a detailed discussion with the patient and/or guardian regarding: the historical points, exam findings, and any diagnostic results supporting the discharge/admit diagnosis, lab results, radiology results, the need for outpatient follow up, for definitive care, a heel gummer, to return to the emergency department if symptoms worsen or persist or if there are any questions or concerns that arise at home. 03/04 17:54 Order name: Basic Metabolic Panel; Complete Time: 20: cp 03/04 20:24 Interpretation: Normal except: K 3.0; CL 111; GFR 83. cp 03/04 17:54 Order name: CBC with Diff; Complete Time: 20: cp 03/04 18:47 Interpretation: Normal except: HGB 9.0; HCT 29.0; MCV 62.3; MCH 19.4; MCHC 31.1; PLT cp 429; RDW 17.6; MPV 6.8. 03/04 17:54 Order name: D-Dimer; Complete Time: 18:47 cp 03/04 17:54 Order name: LFT's; Complete Time: 20:09 cp 03/04 20:25 Interpretation: Normal except: AST 10; GLOB 4.3; A/G 0.9. cp 03/04 17:54 Order name: Magnesium; Complete Time: 20:09 cp 03/04 17:54 Order name: NT PRO-BNP; Complete Time: 20:09 cp 03/04 17:54 Order name: PT-INR; Complete Time: 18:47 cp 03/04 17:54 Order name: Troponin HS; Complete Time: 20:09 cp 03/04 17:54 Order name: Urine Microscopic Only; Complete Time: 18:47 cp 03/04 17:54 Order name: UDS; Complete Time: 20:09 cp 03/04 17:54 Order name: TSH; Complete Time: 20:09 cp 03/04 17:54 Order name: T3 Free; Complete Time: 20:09 cp 03/04 18:14 Order name: Urine Dipstick-Ancillary; Complete Time: 18:47 EDMS 03/04 18:27 Order name: COVID-19/FLU A+B (Document "Date of Onset" if Symptomatic); Complete Time: cs9 22:29 03/04 17:54 Order name: XRAY Chest (1 view); Complete Time: 20:09 cp 03/04 17:54 Order name: EKG; Complete Time: 17:54 cp 03/04 17:54 Order name: Cardiac monitoring; Complete Time: 18:31 cp 03/04 17:54 Order name: EKG - Nurse/Tech; Complete Time: 18:31 cp 03/04 17:54 Order name: IV Saline Lock; Complete Time: 18:31 cp 03/04 17:54 Order name: Labs collected and sent; Complete Time: 21:42 cp 03/04 17:54 Order name: O2 Per Protocol; Complete Time: 18:31 cp 03/04 18:27 Order name: CBC Smear Scan; Complete Time: 20:09 EDMS 03/04 18:50 Order name: CT Chest For PE Angio; Complete Time: 20:09 cp 03/04 19:47 Order name: Urine --Ancillary (enter results); Complete Time: 22:29 cs9 03/04 20:57 Order name: CREATININE WHOLE BLOOD; Complete Time: 22:29 EDMS 03/04 21:45 Order name: Urine --Ancillary (enter results); Complete Time: 22:29 wm 03/04 17:54 Order name: O2 Sat Monitoring; Complete Time: 18:32 cp 03/04 17:54 Order name: Urine Dipstick-Ancillary (obtain specimen); Complete Time: 18:31 cp 03/04 17:54 Order name: Urine Test (obtain specimen); Complete Time: 18:31 cp 03/04 21:56 Order name: EKG - Nurse/Tech: repeat after potassium infused; Complete Time: 22:43 cp EC:20 Rhythm is irregular. QRS interval is normal. QT interval is normal. Interpreted by me. cp Reviewed by me. 22:45 Rate is 74 beats/min. Rhythm is irregular. QRS interval is normal. QT interval is cp normal. T waves are Inverted in lead aVR. Interpreted by me. Reviewed by me. Administered Medications: 18:53 Drug: Metoprolol 25 mg Route: PO; winter 18:53 Follow up: Response: No adverse reaction winter 20:53 Drug: Potassium Chloride 20 mEq Route: IV; Rate: calculated rate; Site: right abraham antecubital; 22:43 Follow up: IV Status: Completed infusion; IV Intake: 100ml abraham 20:53 Drug: Potassium Effervescent Tablet 50 mEq Route: PO; abraham 22:13 Follow up: Response: No adverse reaction abraham 21:09 Drug: Aspirin Chewable Tablet 81 mg Route: PO; abraham 22:06 Follow up: Response: No adverse reaction abraham Disposition: 03/05 07:24 Co-signature as Attending Physician, Mauro Larsen MD I agree with the assessment and kdr plan of care. Disposition Summary: 03/04/22 22:59 Discharge Ordered Location: Home cp Problem: new cp Symptoms: have improved cp Condition: Stable cp Diagnosis - Unspecified atrial fibrillation cp - Anemia, unspecified cp Followup: cp - With: Farrukh Ellison MD - When: Sunday or Sunday at 1300 (1 pm), walk into clinic - Reason: atrial fibrillation Followup: cp - With: Private Physician - When: 1 - 2 days - Reason: anemia Discharge Instructions: - Discharge Summary Sheet cp - Anemia cp - Atrial Fibrillation cp - Aspirin and Your Heart cp - Iron Deficiency Anemia, Adult, [id number]-nk-Ltkf cp - Potassium Content of Foods cp Forms: - Medication Reconciliation Form cp - Thank You Letter cp - Antibiotic Education cp - Prescription Opioid Use cp Prescriptions: - Metoprolol Tartrate 25 mg Oral Tablet - take 1 tablet by ORAL route every 12 hours with a meal; 60 tablet; Refills: 0, cp Product Selection Permitted - Ferrous Sulfate 325 mg (65 mg Iron) Oral Tablet - take 1 tablet by ORAL route every 12 hours; 30 tablet; Refills: 0, Product cp Selection Permitted - Potassium Chloride 10 mEq Oral capsule, extended release - take 1 tablet by ORAL route once daily; 5 tablet; Refills: 0, Product Selection cp Permitted Signatures: Dispatcher [employer] [facility] Mauro Larsen MD MD kdr Attema, Lee, SALES OFFICE MANAGER-C SALES OFFICE MANAGER-Cla1 Álvaro Doyle PA PA cp Gaby Hummel RN RN Itzel Cadet RN RN winter Corrections: (The following items were deleted from the chart) 18:43 03/04 20:51 Physician consultation: Farrukh Ellison MD was contacted at 20:51, regarding cp consult, patient's condition, cp
--- NOTE | 2022-03-04 22:59 | ER ---
Nurse's Notes [facility] Name: Rosmery Treadwell Age: 42 yrs Sex: Female : 1980 Arrival Date: 03/04/2022 Time: 17:49 Bed 19 Private MD: Diagnosis: Unspecified atrial fibrillation;Anemia, unspecified Presentation: 03/04 17:49 Chief complaint: Patient states: pt presented to ED reporting having rapid heart beat. winter pt has hx of a-fib not on any medication for a-fib. Coronavirus screen: Vaccine status: Patient reports being unvaccinated. Ebola Screen: Patient denies travel to an Ebola-affected area in the 21 days before illness onset. Initial Sepsis Screen: Does the patient meet any 2 criteria? HR > 90 bpm. Does the patient have a suspected source of infection? No. Patient's initial sepsis screen is negative. Risk Assessment: Do you want to hurt yourself or someone else? Patient reports no desire to harm self or others. Onset of symptoms was March 04, 2022. 17:49 Method Of Arrival: EMS: [facility] 17:49 Method Of Arrival: EMS: [facility] 17:49 Acuity: SLIM 3 winter Triage Assessment: 17:52 General: Appears in no apparent distress. Behavior is calm, cooperative. Pain: Denies winter pain. Historical: - Allergies: 17:52 No Known Allergies; winter - Home Meds: 17:52 Iron CR Oral [Active]; winter - PMHx: 17:52 Anemia; Atrial Fib; winter - Immunization history:: Adult Immunizations up to date. - Social history:: Smoking status: Patient denies any tobacco usage or history of. Screenin:53 Abuse screen: Denies threats or abuse. Denies injuries from another. Nutritional winter screening: No deficits noted. Tuberculosis screening: No symptoms or risk factors identified. Fall Risk None identified. Assessment: 17:53 General: Appears in no apparent distress. Behavior is calm, cooperative. Pain: Denies winter pain. Cardiovascular: Reports palpitations. 22:13 Reassessment: Patient appears in no apparent distress at this time. The pt is abraham tolerating the K infusion well. She has ambulated to the bathroom several times. She remains on the bedside monitor. Her family member remains at bedside, as well. Vital Signs: 17:49 BP 148 / 75; Pulse 112; Resp 19; Temp 98.2(O); Pulse Ox 100% on R/A; Weight 79.38 kg; winter Height 5 ft. (152.40 cm); 20:25 BP 105 / 58; Pulse 75; Resp 16; Pulse Ox 100% on R/A; Pain 0/10; abraham 22:11 BP 103 / 78; Pulse 84; Resp 16; Pulse Ox 100% on R/A; Pain 0/10; abraham 22:43 BP 106 / 70; Pulse 72; Resp 16; Temp 97.5; Pulse Ox 100% on R/A; Pain 0/10; abraham 17:49 Body Mass Index 34.18 (79.38 kg, 152.40 cm) winter ED Course: 17:49 Patient arrived in ED. winter 17:49 Álvaro Doyle PA is PHCP. cp 17:49 Mauro Larsen MD is Attending Physician. cp 17:52 Triage completed. winter 17:52 Arm band placed on. winter 17:53 Itzel Zamudio RN is Primary Nurse. winter 17:53 Patient has correct armband on for positive identification. Bed in low position. winter 17:53 No provider procedures requiring assistance completed. winter 19:05 XRAY Chest (1 view) In Process Unspecified. EDMS 19:19 CT Chest For PE Angio In Process Unspecified. EDMS 20:07 Primary Nurse role handed off by Itzel Zamudio, RN cs9 20:18 Gaby Hummel, LUPE is Primary Nurse. abraham 21:10 COVID-19/FLU A+B (Document "Date of Onset" if Symptomatic) Sent. arbaham 22:11 Urine --Ancillary (enter results) Sent. abraham 22:56 Farrukh Ellison MD is Referral Physician. cp 23:20 intact, bleeding controlled, No redness/swelling at site. Pressure dressing applied. abraham Administered Medications: 18:53 Drug: Metoprolol 25 mg Route: PO; winter 18:53 Follow up: Response: No adverse reaction winter 20:53 Drug: Potassium Chloride 20 mEq Route: IV; Rate: calculated rate; Site: right abraham antecubital; 22:43 Follow up: IV Status: Completed infusion; IV Intake: 100ml abraham 20:53 Drug: Potassium Effervescent Tablet 50 mEq Route: PO; abraham 22:13 Follow up: Response: No adverse reaction abraham 21:09 Drug: Aspirin Chewable Tablet 81 mg Route: PO; abraham 22:06 Follow up: Response: No adverse reaction abraham Intake: 22:43 IV: 100ml; Total: 100ml. abraham Outcome: 22:12 Condition: stable abraham 22:59 Discharge ordered by MD. cp 23:20 Discharged to home ambulatory, with family. abraham 23:20 Discharge instructions given to patient, Instructed on discharge instructions, follow up and referral plans. Demonstrated understanding of instructions, follow-up care, medications, Prescriptions given X 3. 23:21 Patient left the ED. abraham Signatures: Dispatcher [employer] EDMS Álvaro Doyle PA PA cp Stanford, Christine cs9 Gaby Hummel, RN RN Itzel Cadet RN RN winter
[2022-03-04 23:54] VITALS: O2SAT 100
[2022-03-04 23:58] VITALS: BP 106/70; TEMP 97.5
== END 2022-03-04 23:21 | disposition home or self-care (01) ==
LOC: ER 17:40
DX: I48.91 Unspecified atrial fibrillation (principal); D64.9 Anemia, unspecified; Z20.822 Contact with and (suspected) exposure to COVID-19
CPT/HCPCS: 0240U; 36415; 71045; 71275; 80048; 80076; 80307; 81003; 81015; 81025; 82565; 83735; 83880; 84443; 84481; 84484; 85025; 85379; 85610; 93005; 96365; 96366; 99284; J3480; J7030; J7040; Q9967

== ENCOUNTER 2022-07-11 20:07 | Emergency (ER) | payer OTHER ==
--- OUTSIDE RECORDS SUMMARY | 2022-07-11 20:11 | XMS REPORT | Continuity of Care Document ---
:1980 Author Organization [facility] t Address [address] [place] [address] Care Team Providers Name Role Phone Sofía Ramírez MD Attending Clinician RICK VAZ Attending Clinician Unavailable Doctor Unassigned, [place] Attending Clinician Unavailable Payers Payer Name Policy Type Policy Number Effective Date Expiration Date Gerard boggs [employer] [id number] 2014 00:00:00 ICF [id number] 2014 00:00:00 [employer] [id number] 2014 CARE 00:00:00 Problems Condition Condition Condition Status Onset Resolution Last Treating Co mments Source Name Details Category Date Date Treatment Clinician Date Well woman Well woman Disease Active U nivers exam exam 3-26 ity of 00:00: [place] 00 [facility] Branch Contracept Contracept Disease Active U nivers lisa lisa 3-26 ity of management management 00:[place] [facility] Contracept Contracept Disease Active U nivers lisa lisa 3-26 [place] of management [place] [facility] History of History of Disease Active U nivers atrial atrial 1-28 ity of fibrill[place] fibr[place] Obesity Obesity Disease Active Overview: Univ ers (BMI (BMI 1-28 Formattin ity of 30-39.9) 30-39.9) 00:00: g of this Ben as 00 note Medical might be Branch different from the original. ICD10 Diagnosis Term [employer] Utility Tubal Tubal Disease Active Univers ligation ligation 12-02 ity of status status 00:00: [place] 00 Medical Branch Tubal Tubal Disease Active Univers ligation ligation 12-02 ity of status status 00:00: [place] [address] Medical Branch Allergies, Adverse Reactions, Alerts Allergy Allergy Status Severity Reaction(s) Onset Inactive Treating Comm ents Source Name Type Date Date Clinician NO KNOWN Drug Active Univers ALLERGIE Class ity of [facility] Social History Social Habit Start Date Stop Date Quantity Comments Source Exposure to Not sure [facility] SARS-CoV-2 [facility] (event) Branch Alcohol intake 2021-03-31 2021-03-31 Current [facility] 00:00:00 00:00:00 non-drinker of [facility] [place] [place] alcohol [place] (finding) Tobacco use and 2021-03-31 2021-03-31 Never used Universit y of exposure 00:00:00 00:00:00 [facility] Sex Ass[birth year] At [birth year] Universit y of 00:00:00 00:00:00 [facility] Smoking Status Start Date Stop Date Source Never smoker [facility] Medications Ordered Filled Start Stop Current Ordering Indication Dosage Frequency Signature Comments Components Source Medication Medication Date Date Medication? Clinician (SIG) Name Name metoprolol Yes 25mg Take 25 mg U nivers succinate 3-26 by mouth ity of XL (TOPROL 13:21: daily. [place] XL) 25 mg 31 Medical 24 hr Branch tablet metoprolol Yes 25mg Take 25 mg U nivers succinate 3-26 by mouth ity of XL (TOPROL 13:21: daily. [place] XL) 25 mg 31 Medical 24 hr [...] Medical tablet daily with Branch meals. ferrous Yes 325mg Take 1 Tab Uni vers sulfate 325 2-13 by mouth 3 it y of mg (65 mg 00:00: (three) [place] iron) 00 times Medical tablet daily with [place] meals. Immunizations Ordered Filled Immunization Date Status Comments Sourc e Immunization Name Name Td 2014-12-02 Completed [facility] 00:00:00 [facility] TD 2014-12-02 Completed [facility] 00:00:00 [facility] Vital Signs Vital Name Observation Time Observation Value Comments Source Systolic blood 2021-04-01 05:21:00 111 mm[Hg] Univer [facility]ity of [facility] Diastolic blood 2021-04-01 05:21:00 69 mm[Hg] [facility] Heart rate 2021-04-01 05:21:00 67 /min [facility] Respiratory rate 2021-04-01 05:21:00 21 /min [facility] Oxygen saturation in 2021-04-01 05:21:00 98 /min [facility] Arterial blood by [facility] [place] [place] Pulse oximetry [place] Body temperature 2021-04-01 01:56:00 37.33 Sonam [facility] Body height 2021-04-01 01:56:00 149.9 cm [facility] Body weight 2021-04-01 01:56:00 83.915 kg [facility] BMI 2021-04-01 01:56:00 37.37 kg/m2 [facility] Procedures Procedure Date / Time Performing Clinician Source Performed XR CHEST 1 VW 2021-04-01 03:41:39 Sofía Ramírez [facility] LIPASE 2021-04-01 03:19:00 Sofía Ramírez [facility] TROPONIN I 2021-04-01 03:19:00 Sofía Ramírez [facility] THYROID STIMULATING 2021-04-01 03:19:00 Sofía Ramírez [facility] HORMONE [facility] COMP. METABOLIC PANEL 2021-04-01 03:19:00 Sofía Ramírez [facility] ([id number]) [facility] CBC WITH DIFF 2021-04-01 03:19:00 Sofía Ramírez [facility] D-DIMER 2021-04-01 03:19:00 Sofía Ramírez [facility] NOTICE OF PRIVACY 2021-04-01 01:44:44 Doctor Daisy Yeh [facility] PRACTICES [place] [facility] [place] CONSENT/REFUSAL FOR 2021-04-01 01:44:15 Doctor Antony Yeh [facility] DIAGNOSIS AND TREATMENT [place] [facility] OP CORRESPONDENCE 2019-06-03 05:01:00 Doctor Daisy Yeh [facility] [place] [facility] [place] Encounters Start End Encounter Admission Attending Care Care Encounter Source Date/Time Date/Time Type Type Clinicians Facility Department ID 2021-09-04 Emergency [facility] [id number] [facility] 2021-03-31 2021-04-01 Emergency Desiree [facility] [id number] Univers 21:00:00 00:24:00 Sofía Delatorre [id number] [facility] [id number] [facility] [id number] [facility] 084 Branch 2021-02-14 2021-02-14 Outpatient R AKINSIPE, [facility] [id number] Univers 08:15:00 08:15:00 RICK [id number] demian o f [facility] 2021-02-14 2021-02-14 Outpatient R AKINSIPE, [facility] [id number] Univers 08:15:00 08:15:00 RICK arciniega o f [facility] 2019-06-03 2019-06-03 Orders Doctor JOHNSON [id number] 00:00:00 00:00:00 Only Unassigned, WILLIAM [id number] [place] [facility] [id number] 2019-06-03 2019-06-03 Orders Doctor JOHNSON [id number] Univers 00:00:00 00:00:00 Only Unassigned, WILLIAM [id number] ity of [place] [facility] 4.2.7.2.686 [facility] [id number] [facility] 009 [place] Results Test Description Test Time Test Comments Results Result [facility] e Comments XR CHEST 1 VW 2020-03-06 No evidence of acute U niversity of 8 cardiopulmonary [place] [facility] ica 04:28:11 disease. Preliminary Bran ch Report Dictated by Resident: Jerri Culver I, Fredis Mai MD., have reviewed this study and agree [...] Interpretation Comme nts TSH (test code = 0936445404) See_Comment [Automated message] The system which generated this result transmitted ref erence range: 0.45 - 4.70 mIU/L. T he reference range was not used to interpret this result as yvonne l/abnormal. Lab Interpretation (test code = Normal 29601-7) [id number]:03:26 Test Item Value Reference Range Interpretation Comments TROPONIN I (test 0.000 ng/mL See_Comment [Automated code = 1059953364) message] The system which generated this result [...] ? Lab Interpretation Normal (test code = 77137-7) [id number] 03:53:09 Test Item Value Reference Interpretation Comments Range D-DIMER (test code = See_Comment [Autom ated 2717361059) message] The system which generated this result [...] diagnosis. Lab Interpretation Normal (test code = 30024-9) [facility]. METABOLIC PANEL ([id number])2021-04-01 03:50:08 Test Item Value Reference Range Interpretation Comments NA (test code = 139 mmol/L 135-145 4899572534) K (test code = 3.3 mmol/L 3.5-5.0 L 0206399289) CL (test code = 106 mmol/L 98-108 7197281795) CO2 TOTAL (test code = 24 mmol/L 23-31 9487357366) AGAP (test code = 2-16 2512215016) BUN (test code = 8 mg/dL 7-23 6617586896) GLUCOSE (test code = 101 mg/dL 70-110 2962941041) CREATININE (test code = 0.64 mg/dL 0.50-1.04 9674676667) TOTAL BILI (test code = 0.4 mg/dL 0.1-1.9 4805582305) CALCIUM (test code = 10.9 mg/dL 8.6-10.6 H 8780668324) T PROTEIN (test code = 8.0 g/dL 6.3-8.2 4019198622) ALBUMIN (test code = 4.3 g/dL 3.5-5.0 0931650765) ALK PHOS (test code = 85 U/L 34-122 6086721489) ALTv (test code = 16 U/L 5-35 1742-6) AST(SGOT) (test code = 25 U/L 13-40 4478472545) eGFR (test code = mL/min/1.73m2 2350712960) VERONICA (test code = VERONICA) Association of [...] tests). Lab Interpretation Abnormal (test code = 23646-0) [facility] 03:49[facility]48 Test Item Value Reference Range Interpretation Comments LIPASE (test code = 2730767382) 143 U/L 0-220 Lab Interpretation (test code = Normal 83992-7) [facility] WITH [id number] 03:41:26 Test Item Value Reference Range Interpretation Comments WBC (test code = See_Comment [Automated 6790-2) message] The sy stem which generated this result transmitted reference range : 4.30 - 11.10 10*3/?L. The reference range was not used to interpret this result as normal/abnormal . RBC (test code = See_Comment [Automated 539-8) message] The sy stem which generated this [...] (test code = 62.9 fL 39.0-49.9 H 23939-0) RDW-CV (test code = 26.5 % 12.0-15.5 H 788-0) PLT (test code = See_Comment H [Automated 777-3) message] The sy stem which generated this result transmitted reference range : 166 - 358 10*3/ ?L. The reference r ministerio was not used to interpret this result as normal/abnormal . MPV (test code = 9.0 fL 9.5-12.9 L 74912-3) NRBC/100 WBC (test See_Comment [Automat ed code = 1230629978) message] The system which generated this result transmitted reference range : 0.0 - 10.0 /100 WBCs. The refer ence range was not u sed to interpret th is result as normal/abnormal . NRBC x10^3 (test code <0.01 See_Comment [Auto mated = 8941125109) message] The s ystem which generated this result transmitted reference range : 10*3/?L. The reference range was not used to interpret this result as normal/abnormal . GRAN MAT (NEUT) % 58.3 % (test code = 770-8) IMM GRAN % (test code 0.20 % = 9799835339) LYMPH % (test code = 31.5 % 736-9) MONO % (test code = 8.7 % 5905-5) EOS % (test code = 0.6 % 713-8) BASO % (test code = 0.7 % 706-2) GRAN MAT x10^3(ANC) 5.20 10*3/uL 1.88-7.09 (test code = 7406430714) IMM GRAN x10^3 (test <0.03 0.00-0.06 code = 4769533991) LYMPH x10^3 (test code 2.80 10*3/uL 1.32-3.29 = 731-0) MONO x10^3 (test code 0.77 10*3/uL 0.33-0.92 = 742-7) EOS x10^3 (test code = 0.05 10*3/uL 0.03-0.39 711-2) BASO x10^3 (test code 0.06 10*3/uL 0.01-0.07 = 704-7) Lab Interpretation Abnormal (test code = 12164-9) [facility]
[2022-07-11] MEDS ORDERED: MORPHINE 4 MG/ML SYR ONE ×2 (20:37→22:09)
[2022-07-11] MEDS ORDERED: ONDANSETRON 4 MG/2 ML VIAL ONE ×2 (20:37→22:16)
[2022-07-11 20:40] LABS: Urine Blood 2+ (Negative); Urine Glucose Negative (Negative); Urine Protein 1+ (Negative); Urine Specific Gravity >=1.030 (1.005-1.030); Urine pH 5.5 (5.0-7.0)
[2022-07-11 20:45] LABS: Absolute Lymphocytes (CBC) 2.2 K/uL (0.7-4.9); Hematocrit 23.3 % (36.0-45.0); Lymphocytes % 29.2 % (15.3-44.8); MCV 57.6 fL (80-100); MPV 8.1 fL (7.6-11.3); RBC Red Blood Cell Count 4.05 M/uL (3.86-4.86)
[2022-07-11 21:09] LABS: Albumin 3.6 g/dL (3.4-5.0); Bilirubin Total 0.4 mg/dL (0.2-1.0); Potassium 3.1 mmol/L (3.5-5.1)
[2022-07-11 21:37] LABS: Blood Morphology Comment NOTED (NOT SEEN); Platelet Estimate ADEQ; White Blood Cell Scan OK (OK)
[2022-07-11 21:38] LABS: Hypochromasia 3+
[2022-07-11] MEDS ORDERED: NA CHLORIDE 0.9% 1,000 ML ONE (22:09)
[2022-07-11] MEDS ORDERED: NA CHLORIDE 0.9% 500 ML ONE (22:09)
[2022-07-11] MEDS ORDERED: PANTOPRAZOLE 40 MG INJ ONE (22:09)
[2022-07-11 23:02] LABS: Protime INR 1.22
--- NOTE | 2022-07-11 23:05 | RAD REPORT ---
EXAM DESCRIPTION: CTAbdomen Pelvis W Contrast - 07/11/2022 10:00 pm CLINICAL HISTORY: abdominal pain COMPARISON: No comparisons TECHNIQUE: CT of the abdomen and pelvis was performed. All CT scans are performed using dose optimization technique as appropriate and may include automated exposure control or mA/KV adjustment according to patient size. FINDINGS: Lower chest: No acute abnormality. Liver: No acute abnormality or suspicious lesions. Biliary: No biliary ductal dilatation. Stomach: No significant focal abnormality. Duodenum: No significant focal abnormality. Pancreas: No significant abnormality. Spleen: No significant abnormality. Adrenal: No suspicious lesions. Kidney/ureter: Mild left-sided hydronephrosis secondary to a 4 mm stone in the left proximal ureter. Retroperitoneum: No retroperitoneal adenopathy. Vascular: No aneurysm. Bowel: No significant focal abnormality. Normal appendix. Peritoneum: No ascites or free air. Bladder: Grossly unremarkable. Reproductive: No adnexal masses. Bones: No acute fracture. Other: n/a IMPRESSION: Mild left-sided hydronephrosis secondary to a 4 mm stone in the left proximal ureter. No rmal appendix.
[2022-07-11] MEDS ORDERED: POTASSIUM 25 MEQ EFFERV TAB ONE (23:12)
--- NOTE | 2022-07-11 23:16 | EDPHYS ---
Physician Documentation [facility] Name: Rosmery Treadwell Age: 42 yrs Sex: Female : 1980 Arrival Date: 07/11/2022 Time: 20:11 Bed 25 Private MD: ED Physician Álvaro Benjamin HPI: 07/11 22:45 This 42 yrs old Black Female presents to ER via Ambulatory with complaints of lucina Nausea/Vomiting, Abdominal Cramping. 22:45 The patient presents to the emergency department with nausea, vomiting, that is lucina intermittent, diarrhea, that is intermittent, abdominal pain, of the posterior aspect of left lateral abdomen, anterior aspect of left lateral abdomen, right upper quadrant, left upper quadrant, right lower quadrant and left lower quadrant. Onset: The symptoms/episode began/occurred this morning. Possible causes: unknown. The symptoms are aggravated by nothing. The symptoms are alleviated by nothing. Associated signs and symptoms: The patient has no apparent associated signs or symptoms. Severity of symptoms: At their worst the symptoms were mild moderate in the emergency department the symptoms are unchanged. The patient has not experienced similar symptoms in the past. 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 - Social history:: Smoking status: Patient denies any tobacco usage or history of. Patient/guardian denies using alcohol. ROS: 22:46 Constitutional: Negative for fever, chills, and weight loss, Eyes: Negative for injury, lucina pain, redness, and discharge, ENT: Negative for injury, pain, and discharge, Neck: Negative for injury, pain, and swelling, Cardiovascular: Negative for chest pain, palpitations, and edema, Respiratory: Negative for shortness of breath, cough, wheezing, and pleuritic chest pain, Back: Negative for injury and pain, : Negative for injury, bleeding, discharge, and swelling, MS/Extremity: Negative for injury and deformity, Skin: Negative for injury, rash, and discoloration, Neuro: Negative for headache, weakness, numbness, tingling, and seizure, Psych: Negative for depression, anxiety, suicide ideation, homicidal ideation, and hallucinations, Allergy/Immunology: Negative for hives, rash, and allergies, Endocrine: Negative for neck swelling, polydipsia, polyuria, polyphagia, and marked weight changes, Hematologic/Lymphatic: Negative for swollen nodes, abnormal bleeding, and unusual bruising. 22:46 Abdomen/GI: Positive for abdominal pain, nausea and vomiting, vomiting, diarrhea, abdominal cramps, of the right upper quadrant, left upper quadrant, right lower quadrant and left lower quadrant. Exam: 22:46 Constitutional: This is a well developed, well nourished patient who is awake, alert, lucina and in no acute distress. Head/Face: Normocephalic, atraumatic. Eyes: Pupils equal round and reactive to light, extra-ocular motions intact. Lids and lashes normal. Conjunctiva and sclera are non-icteric and not injected. Cornea within normal limits. Periorbital areas with no swelling, redness, or edema. ENT: Nares patent. No nasal discharge, no septal abnormalities noted. Tympanic membranes are normal and external auditory canals are clear. Oropharynx with no redness, swelling, or masses, exudates, or evidence of obstruction, uvula midline. Mucous membranes moist. Neck: Trachea midline, no thyromegaly or masses palpated, and no cervical lymphadenopathy. Supple, full range of motion without nuchal rigidity, or vertebral point tenderness. No Meningismus. Chest/axilla: Normal chest wall appearance and motion. Nontender with no deformity. No lesions are appreciated. Cardiovascular: Regular rate and rhythm with a normal S1 and S2. No gallops, murmurs, or rubs. Normal PMI, no JVD. No pulse deficits. Respiratory: Lungs have equal breath sounds bilaterally, clear to auscultation and percussion. No rales, rhonchi or wheezes noted. No increased work of breathing, no retractions or nasal flaring. Back: No spinal tenderness. No costovertebral tenderness. Full range of motion. Female : Normal external genitalia. Skin: Warm, dry with normal turgor. Normal color with no rashes, no lesions, and no evidence of cellulitis. MS/ Extremity: Pulses equal, no cyanosis. Neurovascular intact. Full, normal range of motion. Neuro: Awake and alert, GCS 15, oriented to person, place, time, and situation. Cranial nerves II-XII grossly intact. Motor strength 5/5 in all extremities. Sensory grossly intact. Cerebellar exam normal. Normal gait. Psych: Awake, alert, with orientation to person, place and time. Behavior, mood, and affect are within normal limits. 22:46 ECG was reviewed by the Attending Physician. 22:46 Abdomen/GI: Inspection: abdomen appears normal, Bowel sounds: normal, Palpation: mild abdominal tenderness, in all quadrants, Liver: no appreciated palpable abnormalities, Hernia: not appreciated. Vital Signs: 20:20 BP 124 / 106; Pulse 80; Resp 18; Temp 97.4(TE); Pulse Ox 100% on R/A; Weight 80.74 kg; ld1 Height 4 ft. 9 in. (144.78 cm); Pain 10/10; 20:32 BP 125 / 71; ld1 22:22 BP 110 / 63; Pulse 71; Resp 18 S; Pulse Ox 100% on R/A; as6 23:35 BP 109 / 71; Pulse 64; Resp 18 S; Pulse Ox 100% on R/A; as6 20:20 Body Mass Index 38.52 (80.74 kg, 144.78 cm) ld1 MDM: 20:57 Patient medically screened. lucina 22:53 Differential diagnosis: Nonspecific abd pain, gastritis, cholecystitis, pancreatitis, lucina appendicitis, diverticulitis, viral gastroenteritis, gastroenteritis. Data reviewed: vital signs, nurses notes, lab test result(s), EKG, radiologic studies, CT scan. Data interpreted: microsoft dynamics developer: rate is 71 beats/min, rhythm is regular, Pulse oximetry: on room air. Test interpretation: by ED physician or midlevel provider: ECG, plain radiologic studies. Counseling: I had a detailed discussion with the patient and/or guardian regarding: the historical points, exam findings, and any diagnostic results supporting the discharge/admit diagnosis, lab results, radiology results, the need for outpatient follow up, for definitive care, a family practitioner, an OB/Gyne specialist. 07/11 20:40 Order name: Urine Dipstick-Ancillary; Complete Time: 20:58 EDMS 07/11 20:51 Order name: CBC with Automated Diff; Complete Time: 22:30 EDMS 07/11 21:01 Order name: Type And Screen lucina 07/11 21:10 Order name: Comprehensive Metabolic Panel; Complete Time: 22:30 [facility] 07/11 21:10 Order name: Lipase; Complete Time: 22:30 [facility] 07/11 21:26 Order name: Abdomen ; Complete Time: 23:11 [facility] 07/11 21:38 Order name: CBC Smear Scan; Complete Time: 22:30 [facility] 07/11 22:24 Order name: Protime (+INR); Complete Time: 23:11 [facility] 07/11 22:24 Order name: Type and Screen [facility] 07/11 20:20 Order name: IV Saline Lock; Complete Time: 20:32 [facility] 07/11 20:20 Order name: Labs collected and sent; Complete Time: 20:32 [facility] 07/11 20:20 Order name: Urine Dipstick-Ancillary (obtain specimen); Complete Time: 20:47 [facility] 07/11 20:20 Order name: Urine Test (obtain specimen); Complete Time: 20:47 [facility] 07/11 21:01 Order name: EKG; Complete Time: 22:36 [facility] 07/11 21:01 Order name: EKG - Nurse/Tech; Complete Time: 22:22 [facility] 07/11 22:31 Order name: Orthostatics; Complete Time: 23:44 [facility] EC:46 Rate is 67 beats/min. Rhythm is regular. QRS Grand Chain is Normal. DE interval is normal. QRS lucina interval is normal. QT interval is normal. No Q waves. T waves are Normal. No ST changes noted. Clinical impression: Normal ECG and No evidence of ischemia. Interpreted by me. Reviewed by me. Administered Medications: 23:37 Discontinued: NS 0.9% 1000 ml IV at 125 ml/hr continuous as6 20:32 Drug: Zofran (Ondansetron) 4 mg Route: IVP; Site: left antecubital; ld1 23:36 Follow up: Response: No adverse reaction as6 20:32 Drug: morphine 4 mg Route: IVP; Infused Over: 4 mins; Site: left antecubital; ld1 23:36 Follow up: Response: No adverse reaction as6 22:13 Not Given (Patient Refused): ProTONIX (pantoprazole) 40 mg IVP once as6 22:14 Drug: NS 0.9% 500 ml Route: IV; Rate: bolus; Site: left antecubital; as6 23:37 Follow up: Response: No adverse reaction; IV Status: Completed infusion; IV Intake: as6 500ml 22:14 Drug: NS 0.9% 1000 ml Route: IV; Rate: 125 ml/hr; Site: left antecubital; as6 22:14 Drug: morphine 4 mg Route: IVP; Infused Over: 4 mins; Site: left antecubital; as6 23:37 Follow up: Response: No adverse reaction as6 22:14 Drug: Zofran (Ondansetron) 4 mg Route: IVP; Site: left antecubital; as6 23:37 Follow up: Response: No adverse reaction as6 23:30 Drug: Potassium Effervescent Tablet 25 mEq Route: PO; as6 23:37 Follow up: Response: No adverse reaction as6 23:30 Drug: Rocephin (cefTRIAXone) 1 grams Route: IV; Rate: per protocol; Site: left as antecubital; 23:38 Follow up: Response: No adverse reaction; IV Status: Completed infusion; IV Intake: [id number] 23:33 Drug: Flomax (tamsulosin) 0.4 mg Route: PO; as6 23:38 Follow up: Response: No adverse reaction as6 23:33 Drug: Ketorolac 30 mg Route: IVP; Site: left antecubital; as6 23:38 Follow up: Response: No adverse reaction as6 Disposition Summary: 07/11/22 23:15 Discharge Ordered Location: Home lucina Problem: new lucina Symptoms: have improved lucina Condition: Stable lucina Diagnosis - Abdominal tenderness lucina - Vomiting lucina - Anemia, unspecified lucina - Iron deficiency anemia secondary to blood loss (chronic) lucina - Hydronephrosis with renal and ureteral calculous obstruction - 4 mm left proximal lucina ureter Followup: lucina - With: Private Physician - When: 2 - 3 days - Reason: Recheck today's complaints, Continuance of care, Re-evaluation by your physician Followup: lucina - With: - When: 2 - 3 days - Reason: Recheck today's complaints, Re-evaluation by your physician Followup: lucina - With: Nash Lowery MD - When: 2 - 3 days - Reason: Recheck today's complaints, Continuance of care, Re-evaluation by your physician Discharge Instructions: - Discharge Summary Sheet lucina - Abdominal Pain, Adult lucina - Iron Deficiency Anemia, Adult lucina - Anemia [facility] - Iron-Rich Diet [facility] - Kidney Stones lucina - Abdominal Pain, Adult, [id number] lucina - Iron Deficiency Anemia, Pediatric lucina - Iron Deficiency Anemia, Adult, [id number] lucina - Vomiting, Adult lucina - Kidney Stones, Agbx-[id number] lucina - Hydronephrosis [facility] Forms: - Medication Reconciliation Form [facility] - Thank You Letter [facility] - Antibiotic Education [facility] - Prescription Opioid Use [facility] Prescriptions: - Cipro 250 mg Oral Tablet - take 1 tablet by ORAL route every 12 hours; 14 tablet; Refills: 0, Product [facility] Selection Permitted - Flomax 0.4 mg Oral capsule - take 1 capsule by ORAL route once daily 1/2 hour following the same meal each [facility] day; 30 capsule; Refills: 0, Product Selection Permitted - Ferrous Sulfate 325 mg (65 mg Iron) Oral Tablet - take 1 tablet by ORAL route every 8 hours; 90 tablet; Refills: 0, Product [facility] Selection Permitted - Pepcid 20 mg Oral Tablet - take 1 tablet by ORAL route every 12 hours for 21 days; 42 tablet; Refills: 0, [facility] Product Selection Permitted - Zofran 4 mg Oral Tablet - take 1 tablet by ORAL route every 12 hours As needed; 20 tablet; Refills: 0, [facility] Product Selection Permitted - Tylenol-Codeine #3 300 mg-30 mg Oral - take 2 tablet by ORAL route every 6 hours; 24 tablet; Refills: 0, Product [facility] Selection Permitted Signatures: Dispatcher [employer] EDMS Rosy Diaz, END TRIMMER-C END TRIMMER-Álvaro Velasco MD MD cha Dibbern, Lauren RN RN ld1 Yohan Kowalski RN RN as6 Radha Reddy PA PA sb3 Corrections: (The following items were deleted from the chart) 22:44 22:36 Abdomen Pelvis W Con+CT.RAD.BRZ ordered. EDMS EDMS 22:56 22:34 CBC+H.LAB.BRZ ordered. EDMS EDMS 22:56 22:34 COMPREHENSIVE METABOLIC PANEL+C.LAB.BRZ ordered. EDMS EDMS 22:56 22:34 LIPASE+C.LAB.BRZ ordered. EDMS EDMS 22:56 22:35 PROTIME (+INR)+COAG.LAB.BRZ ordered. EDMS EDMS
--- NOTE | 2022-07-11 23:16 | ER ---
Nurse's Notes [facility] Name: Rosmery Treadwell Age: 42 yrs Sex: Female : 1980 Arrival Date: 07/11/2022 Time: 20:11 Bed 25 Private MD: Diagnosis: Abdominal tenderness;Vomiting;Anemia, unspecified;Iron deficiency anemia secondary to blood loss (chronic);Hydronephrosis with renal and ureteral calculous obstruction-4 mm left proximal ureter Presentation: 07/11 20:20 Chief complaint: Patient states: Lower abdominal pain - left flank pain. C/O nausea and ld1 abdominal pain. Coronavirus screen: At this time, the client does not indicate any symptoms associated with coronavirus-19. Ebola Screen: No symptoms or risks identified at this time. Initial Sepsis Screen: Does the patient meet any 2 criteria? No. Patient's initial sepsis screen is negative. Does the patient have a suspected source of infection? No. Patient's initial sepsis screen is negative. Risk Assessment: Do you want to hurt yourself or someone else? Patient reports no desire to harm self or others. Onset of symptoms was July 11, 2022. 20:20 Method Of Arrival: Ambulatory ld1 20:20 Acuity: SLIM 3 ld1 Triage Assessment: 20:20 General: Appears in no apparent distress. uncomfortable, Behavior is calm, cooperative, ld1 appropriate for age. Pain: Complains of pain in posterior aspect of left lateral abdomen, right lower quadrant and left lower quadrant Pain does not radiate. Pain currently is 10 out of 10 on a pain scale. Quality of pain is described as throbbing, Pain began suddenly. EENT: No signs and/or symptoms were reported regarding the EENT system. Neuro: Level of Consciousness is awake, alert, obeys commands, Oriented to person, place, time, situation. Cardiovascular: Capillary refill < 3 seconds Patient's skin is warm and dry. Respiratory: Airway is patent Respiratory effort is even, unlabored. GI: Abdomen is round non-distended, Reports lower abdominal pain, nausea. : No signs and/or symptoms were reported regarding the genitourinary system. Derm: No signs and/or symptoms reported regarding the dermatologic system. Musculoskeletal: No signs and/or symptoms reported regarding the musculoskeletal system. CARE COMPANION: 22:24 LMP 07/06/2022 as6 Historical: - Allergies: 20:20 No Known Allergies; ld1 - PMHx: 20:20 Atrial Fib; Anemia; ld1 - PSHx: 20:20 Tubal ligation; ld1 - Immunization history:: Adult Immunizations up to date, Client reports having NOT received the Covid vaccine. - Social history:: Smoking status: Patient denies any tobacco usage or history of. Patient/guardian denies using alcohol. Screenin:24 Abuse screen: Denies threats or abuse. Denies injuries from another. Nutritional as6 screening: No deficits noted. Tuberculosis screening: No symptoms or risk factors identified. Fall Risk None identified. Assessment: 22:23 General: Appears uncomfortable, Behavior is calm, cooperative. Pain: Complains of pain as6 in abdomen and left lower quadrant and right lower quadrant and posterior aspect of left lateral abdomen. Neuro: Level of Consciousness is awake, alert. Respiratory: Respiratory effort is even, unlabored. GI: Reports lower abdominal pain. Vital Signs: 20:20 BP 124 / 106; Pulse 80; Resp 18; Temp 97.4(TE); Pulse Ox 100% on R/A; Weight 80.74 kg; ld1 Height 4 ft. 9 in. (144.78 cm); Pain 10/10; 20:32 BP 125 / 71; ld1 22:22 BP 110 / 63; Pulse 71; Resp 18 S; Pulse Ox 100% on R/A; as6 23:35 BP 109 / 71; Pulse 64; Resp 18 S; Pulse Ox 100% on R/A; as6 20:20 Body Mass Index 38.52 (80.74 kg, 144.78 cm) ld1 ED Course: 20:11 Patient arrived in ED. [id number] 20:20 Arm band placed on right wrist. ld1 20:22 Triage completed. ld1 20:32 Inserted saline lock: 20 gauge in left antecubital area, using aseptic technique. Blood ld1 collected. 20:54 Yohan Kowalski RN is Primary Nurse. as6 20:57 Álvaro Benjamin MD is Attending Physician. lucina 22:02 Abdomen In Process Unspecified. EDMS 22:24 Bed in low position. Call light in reach. Side rails up X2. Pulse ox on. NIBP on. Warm as6 blanket given. 23:15 Kadiyala, Kimberly, MD is Referral Physician. lucina 23:15 Nash Lowery MD is Referral Physician. lucina 23:36 No provider procedures requiring assistance completed. IV discontinued, intact, as6 bleeding controlled, No redness/swelling at site. Pressure dressing applied. Administered Medications: 23:37 Discontinued: NS 0.9% 1000 ml IV at 125 ml/hr continuous as6 20:32 Drug: Zofran (Ondansetron) 4 mg Route: IVP; Site: left antecubital; ld1 23:36 Follow up: Response: No adverse reaction as6 20:32 Drug: morphine 4 mg Route: IVP; Infused Over: 4 mins; Site: left antecubital; ld1 23:36 Follow up: Response: No adverse reaction as6 22:13 Not Given (Patient Refused): ProTONIX (pantoprazole) 40 mg IVP once as6 22:14 Drug: NS 0.9% 500 ml Route: IV; Rate: bolus; Site: left antecubital; as6 23:37 Follow up: Response: No adverse reaction; IV Status: Completed infusion; IV Intake: as6 500ml 22:14 Drug: NS 0.9% 1000 ml Route: IV; Rate: 125 ml/hr; Site: left antecubital; as6 22:14 Drug: morphine 4 mg Route: IVP; Infused Over: 4 mins; Site: left antecubital; as6 23:37 Follow up: Response: No adverse reaction as6 22:14 Drug: Zofran (Ondansetron) 4 mg Route: IVP; Site: left antecubital; as6 23:37 Follow up: Response: No adverse reaction as6 23:30 Drug: Potassium Effervescent Tablet 25 mEq Route: PO; as6 23:37 Follow up: Response: No adverse reaction as6 23:30 Drug: Rocephin (cefTRIAXone) 1 grams Route: IV; Rate: per protocol; Site: left as6 antecubital; 23:38 Follow up: Response: No adverse reaction; IV Status: Completed infusion; IV Intake: [id number] 23:33 Drug: Flomax (tamsulosin) 0.4 mg Route: PO; as6 23:38 Follow up: Response: No adverse reaction as6 23:33 Drug: Ketorolac 30 mg Route: IVP; Site: left antecubital; as6 23:38 Follow up: Response: No adverse reaction as6 Medication: 23:35 VIS not applicable for this client. as6 Intake: 23:37 IV: 500ml; Total: 500ml. as6 23:38 IV: 50ml; Total: 550ml. as6 Outcome: 23:15 Discharge ordered by . lucina 23:36 Discharged to home ambulatory, with family. as6 23:36 Condition: stable 23:36 Discharge instructions given to patient, Instructed on discharge instructions, follow up and referral plans. medication usage, Demonstrated understanding of instructions, follow-up care, medications, Prescriptions given X 6 23:44 Patient left the ED. as6 Signatures: Dispatcher [employer] EDMS Álvaro Benjamin MD MD cha Dibbern, Lauren, RN RN ld1 [id number] Yohan Kowalski RN RN as6
[2022-07-11] MEDS ORDERED: CEFTRIAXONE 1000 MG/VIAL ONE (23:38)
[2022-07-11] MEDS ORDERED: TAMSULOSIN 0.4 MG SR CAP ONE (23:38)
[2022-07-11] MEDS ORDERED: NA CHLORIDE 0.9% 50 ML ONE (23:38)
[2022-07-11] MEDS ORDERED: KETOROLAC 30 MG/ML INJ ONE (23:38)
[2022-07-12 02:44] VITALS: O2SAT 100
[2022-07-12 03:04] VITALS: BP 109/71
--- NOTE | 2022-07-12 12:48 | EKG ---
Test Date: 2022-07-11 Test Time: 22:17:13 Pediatric Urologist: SHANTANU MEASUREMENT RESULTS: Intervals: Rate: 67 NE: 186 QRSD: 82 QT: 376 QTc: 397 [place]: P: 71 NE: 186 QRS: 71 T: 32 INTERPRETIVE STATEMENTS: Normal sinus rhythm Normal ECG Compared to ECG 03/04/2022 22:39:36 Atrial fibrillation no longer present Electronically Signed On 07-12-22 12:46:42 CDT by Barney Rosa
== END 2022-07-11 23:44 | disposition home or self-care (01) ==
LOC: ER 20:07
DX: N13.2 Hydronephrosis with renal and ureteral calculous obstruction (principal); D50.0 Iron deficiency anemia secondary to blood loss (chronic); R11.10 Vomiting, unspecified
CPT/HCPCS: 96361; 93005; 85025; 36415; 86900; 86850; 85610; 86901; 81003; 83690; 80053; 74177; 96375; 96374; 99284; Q9967; J7040; J7030; J2405 ×2; C9113

== ENCOUNTER 2023-11-21 05:56 | Inpatient (IN) | payer OTHER, SELFPAY ==
--- OUTSIDE RECORDS SUMMARY | 2023-11-21 05:59 | XMS REPORT | Continuity of Care Document ---
Author Name Unknown Address [address] [facility] [address] [place] [address] [facility] thconnect Address [address] [facility] [address] [place] [address] Care Team Providers Care Ramp Service Man Name Role Phone Pcp, Patient Does Not Have A Primary Care Physic jazmine [email or web address]_S Attending Clinician UnavailYuliet Weber PA-C Attending Clinician [phone] Clive Kumar MD Attending Clinician [phone] Unknown, Attending Attending Clinician Unavailab CLIVE Coy Attending Clinician Unavailable Doctor Unassigned, Wheeler Attending Clinician U Janis Gil Attending Clinician + [phone] Shankar Rodriguez MD Attending Clinician [phone] SHANKAR RODRIGUEZ Attending Clinician Unavailable Lisa Ramírez MD Attending Clinician [phone] LISA RAMÍREZ Attending Clinician Unavailable RICK VAZ Attending Clinician Unavail able [email or web address]_Chelsea_S Admitting Clinician UnavailShankar Person MD Admitting Clinician [phone] SHANKAR RODRIGUEZ Admitting Clinician Unavailable LISA RAMÍREZ Admitting Clinician Unavailable Payers Payer Name Policy Type Policy Number Effective Date Expirati on Date Source [employer] [facility] [id number] 2014 00:00:00 ICF [id number] 2014 00:00:00 [facility] [id number] 2014 00:00:00 Problems Condition Name Condition Details Condition Category Status Onset Date Resolution Date Last Treatment Date Treating Clinician Comments Source Anemia Anemia Disease Active 07-14 00:00: 00 [facility] Well woman exam Well woman exam Disease Active 01-28 00:00: 00 [facility] Contracept lisa management Contracept lisa management Disease Active 01-28 00:00: 00 [facility] Contracept lisa management Contracept lisa management Disease Active 01-28 00:00: 00 [facility] History of atrial fibrillati on History of atrial fibrillati on Disease Active 12-02 00:00: 00 [facility] Obesity (BMI 30-39.9) Obesity (BMI 30-39.9) Disease Active 12-02 00:00: 00 Overview: Formattin g of this note might be different from the original. ICD10 Diagnosis Term [employer] Utility [facility] Tubal ligation status Tubal ligation status Disease Active 12-02 00:00: 00 [facility] Tubal ligation status Tubal ligation status Disease Active 12-02 00:00: 00 [facility] Allergies, Adverse Reactions, Alerts Allergy Name Allergy Type Status Severity Reaction(s) Onset Date Inactive Date Treating Clinician Comments Source NO KNOWN ALLERGIE S Drug Class Active [facility] Social History Social Habit Start Date Stop Date Quantity Comments Source Gender identity [facility] Sexual orientation U [facility] Exposure to SARS-CoV-2 (event) 2022-07-04 00:00:00 2022-07-14 11:03:[address] [facility] Education 2022-07-14 00:00:00 2022-07-14 00:00:[address] [facility] Alcohol intake 2022-07-14 00:00:00 2022-07-14 00:00:00 Current non-drinker of alcohol (finding) [facility] Tobacco use and exposure 2022-07-14 00:00:00 2022-07-14 00:00:00 Smokeless tobacco non-user [facility] History of Social function 2019-05-15 00:00:00 2019-05-15 00:00:[address] [facility] Sex Assigned At 1980 00:00:00 1980 00:00:[address] [facility] Smoking Status Start Date Stop Date Source Never smoked tobacco [facility] Medications Ordered Medication Name Filled Medication Name Start Date Stop Date Current Medication? Ordering Clinician Indication Dosage Frequency Signature (SIG) Comments Components Source metroNIDAZO LE 500 mg tablet 06-01 00:00: 00 Yes [id number] 500mg Take 1 tablet by mouth every 12 (twelve) hours. [facility] Nitrofurant oin&Nit. Macrocryst 100 mg capsule 05-30 00:00: 00 06-05 04:59 :00 No [id number] 100mg Take 1 capsule by mouth in the morning and 1 capsule in the evening. Do all this for 5 days. [facility] Nitrofurant oin&Nit. Macrocryst 100 mg capsule 05-30 00:00: 00 06-05 04:59 :00 No [id number] 100mg Take 1 capsule by mouth in the morning and 1 capsule in the evening. Do all this for 5 days. [facility] Nitrofurant oin&Nit. Macrocryst 100 mg capsule 05-30 00:00: 00 06-05 04:59 :00 No [id number] 100mg Take 1 capsule by mouth in the morning and 1 capsule in the evening. Do all this for 5 days. [facility] fluconazole (DIFLUCAN) 150 mg tablet 05-30 00:00: 00 05-31 04:59 :00 No [id number] 150mg Take 1 tablet by mouth once now for 1 dose. [facility] fluconazole (DIFLUCAN) 150 mg tablet 05-30 00:00: 00 05-31 04:59 :00 No [id number] 150mg Take 1 tablet by mouth once now for 1 dose. [facility] metoprolol succinate XL (TOPROL XL) 25 mg 24 hr tablet 07-16 14:11: 09 Yes 25mg Take 25 mg by mouth daily. [facility] metoprolol succinate XL (TOPROL XL) 25 mg 24 hr tablet 07-16 14:11: 09 Yes 25mg Take 25 mg by mouth daily. [facility] metoprolol succinate XL (TOPROL XL) 25 mg 24 hr tablet 07-16 14:11: 09 Yes 25mg Take 25 mg by mouth daily. [facility] metoprolol succinate XL (TOPROL XL) 25 mg 24 hr tablet 07-16 14:11: 09 Yes 25mg Take 25 mg by mouth daily. [facility] metoprolol succinate XL (TOPROL XL) 25 mg 24 hr tablet 07-16 14:11: 09 Yes 25mg Take 25 mg by mouth daily. [facility] metoprolol succinate XL (TOPROL XL) 25 mg 24 hr tablet 07-16 14:11: 09 Yes 25mg Take 25 mg by mouth daily. [facility] ferrous fumarate-vi tamin C 200 mg (65 mg iron)-25 mg TbSR 07-16 00:00: 00 Yes [id number] 1{tbl} Take 1 tablet by mouth 2 (two) times daily with meals. [facility] vitamin B-12 250 mcg tablet 07-16 00:00: 00 Yes [id number] 250ug Take 1 tablet by mouth in the morning. [facility] ferrous fumarate-vi tamin C 200 mg (65 mg iron)-25 mg TbSR 07-16 00:00: 00 Yes [id number] 1{tbl} Take 1 tablet by mouth 2 (two) times daily with meals. [facility] vitamin B-12 250 mcg tablet 07-16 00:00: 00 Yes [id number] 250ug Take 1 tablet by mouth in the morning. [facility] ferrous fumarate-vi tamin C 200 mg (65 mg iron)-25 mg TbSR 07-16 00:00: 00 Yes [id number] 1{tbl} Take 1 tablet by mouth 2 (two) times daily with meals. [facility] vitamin B-12 250 mcg tablet 07-16 00:00: 00 Yes [id number] 250ug Take 1 tablet by mouth in the morning. [facility] ferrous fumarate-vi tamin C 200 mg (65 mg iron)-25 mg TbSR 07-16 00:00: 00 Yes [id number] 1{tbl} Take 1 tablet by mouth 2 (two) times daily with meals. [facility] vitamin B-12 250 mcg tablet 07-16 00:00: 00 Yes [id number] 250ug Take 1 tablet by mouth in the morning. [facility] ferrous fumarate-vi tamin C 200 mg (65 mg iron)-25 mg TbSR 07-16 00:00: 00 Yes [id number] 1{tbl} Take 1 tablet by mouth 2 (two) times daily with meals. [facility] vitamin B-12 250 mcg tablet 07-16 00:00: 00 Yes [id number] 250ug Take 1 tablet by mouth in the morning. [facility] ferrous fumarate-vi tamin C 200 mg (65 mg iron)-25 mg TbSR 07-16 00:00: 00 Yes [id number] 1{tbl} Take 1 tablet by mouth 2 (two) times daily with meals. [facility] vitamin B-12 250 mcg tablet 07-16 00:00: 00 Yes [id number] 250ug Take 1 tablet by mouth in the morning. [facility] cyclobenzap rine (FLEXERIL) tablet 5 mg 07-15 18:30: 00 Yes 5mg 5 mg, Oral, TID, First dose on 07/15/22 at 1330, Until Discontinu ed, Routine [facility] ketorolac (TORADOL) injection 15 mg 07-15 18:27: 36 Yes 15mg 15 mg, Slow IV Push, Q8HPRN, Starting on 07/15/22 at 1327, Until Discontinu ed, SRI, Pain (scale 4-6) [facility] vitamin B-12 (CYANOCOBAL SALINAS) tablet 1,000 mcg 07-15 14:00: 00 Yes 1000ug 1,000 mcg, Oral, DAILY, First dose on 07/15/22 at 0900, Until Discontinu ed, Routine [facility] metoprolol succinate XL (TOPROL XL) tablet 25 mg 07-15 14:00: 00 Yes 25mg 25 mg, Oral, DAILY, First dose on 07/15/22 at 0900, Until Discontinu ed, Routine [facility] proMETHazin e (PHENERGAN) 12.5 mg in NaCl 0.9% (NS) 50 mL IV piggyback 07-15 06:12: 01 Yes 12.5mg 12.5 mg, IV Piggyback, Q4HPRN, Starting on 07/15/22 at 0112, Until Discontinu ed, Routine, N/V unresponsi ve to Ondansetro n [facility] ondansetron (ZOFRAN (PF)) injection 4 mg 07-15 06:11: 49 Yes 4mg 4 mg, Slow IV Push, Q6HPRN, Starting on 07/15/22 at 0111, Until Discontinu ed, Routine, Nausea and Vomiting (N/V) [facility] ondansetron (ZOFRAN (PF)) injection 4 mg 07-15 02:15: 00 07-15 01:33 :00 No 4mg 4 mg, Slow IV Push, ONCE, On Sun07/14/22 at 2115, For 1 dose
Do ses of ondansetro n 16 mg and above need to be administer ed via IV piggyback. For Dose >=24mg ECG monitoring is advisable.
[facility] iron sucrose (VENOFER) 300 mg in NaCl 0.9% (NS) 250 mL infusion 07-15 00:30: 00 07-18 13:59 :00 No 300mg 300 mg, IV Infusion, DAILY, Administer over 1.5 Hours, First dose on Sun07/14/22 at 1930, For 4 doses [facility] NaCl 0.45% (1/2NS) IV infusion 1,000 mL 07-14 20:30: 00 Yes 1000mL at 125 mL/hr, 1,000 mL, IV Infusion, CONTINUOUS , Starting on Sun07/14/22 at 1530, Until Discontinu ed, Routine [facility] morpHINE (2 mg/mL) injection 2 mg 07-14 19:49: 30 07-15 19:48 :30 No 2mg 2 mg, Slow IV Push, Q4HPRN, Starting on Sun07/14/22 at 1449, Until 07/15/22 at 1448, Routine, Pain (scale 7-10) [facility] HYDROcodone -acetaminop hen (NORCO 5) 5-325 mg tablet 1 tablet 07-14 19:49: 27 07-15 18:22 :10 No 1{tbl} 1 tablet, Oral, Q6HPRN, Starting on Sun07/14/22 at 1449, Until 07/15/22 at 1322, Routine, Pain (scale 4-6) [facility] tamsulosin (FLOMAX) capsule 0.4 mg 07-14 19:30: 00 Yes .4mg 0.4 mg, Oral, DAILY, First dose on Sun07/14/22 at 1430, Until Discontinu ed, Routine [facility] acetaminoph en (TYLENOL) tablet 1,000 mg 07-14 19:30: 00 Yes 1000mg 1,000 mg, Oral, Q8H, First dose on Sun07/14/22 at 1430, Until Discontinu ed, Routine [facility] NaCl 0.9% (NS) bolus infusion 1,000 mL 07-14 17:30: 00 07-14 18:45 :00 No 1000mL at 999 mL/hr, 1,000 mL, IV Infusion, ONCE, 1 dose, On Sun07/14/22 at 1230, STAT [facility] ondansetron (ZOFRAN (PF)) injection 4 mg 07-14 17:30: 00 07-14 17:51 :00 No 4mg 4 mg, Slow IV Push, ONCE, 1 dose, On Sun07/14/22 at 1230, SRI [facility] ketorolac (TORADOL) injection 30 mg 07-14 17:30: 00 07-14 17:51 :00 No 30mg 30 mg, Slow IV Push, ONCE, 1 dose, On Sun07/14/22 at 1230, SRI [facility] metoprolol succinate XL (TOPROL XL) 25 mg 24 hr tablet 01-28 13:21: 31 Yes 25mg Take 25 mg by mouth daily. [facility] metoprolol succinate XL (TOPROL XL) 25 mg 24 hr tablet 01-28 13:21: 31 Yes 25mg Take 25 mg by mouth daily. [facility] Occult Blood (HEMATEST) Tab 01-07 00:00: 00 Yes Use as directed [facility] Occult Blood (HEMATEST) Tab 01-07 00:00: 00 Yes Use as directed [facility] Occult Blood (HEMATEST) Tab 01-07 00:00: 00 07-16 00:00 :00 No Use as directed [facility] ferrous sulfate 325 mg (65 mg iron) tablet 12-18 00:00: 00 Yes 325mg Take 1 Tab by mouth 3 (three) times daily with meals. [facility] ferrous sulfate 325 mg (65 mg iron) tablet 12-18 00:00: 00 Yes 325mg Take 1 Tab by mouth 3 (three) times daily with meals. [facility] ferrous sulfate 325 mg (65 mg iron) tablet 12-18 00:00: 00 07-16 00:00 :00 No 325mg Take 1 Tab by mouth 3 (three) times daily with meals. [facility] Immunizations Ordered Immunization Name Filled Immunization Name Date Status Comments Source TDAP 2014-12-02 00:00:[address] [facility] TDAP 2014-12-02 00:00:[address] [facility] TDAP 2014-12-02 00:00:[address] [facility] TDAP 2014-12-02 00:00:[address] [facility] TDAP 2014-12-02 00:00:[address] [facility] Tdap 2014-12-02 00:00:[address] [facility] TDAP 2014-12-02 00:00:[address] [facility] TDAP Unknown Completed [facility] Vital Signs Vital Name Observation Time Observation Value Comments S ource Systolic blood pressure 2023-05-30 19:26:00 102 mm[Hg] [facility] Diastolic blood pressure 2023-05-30 19:26:00 67 mm[Hg] [facility] Heart rate 2023-05-30 19:26:00 74 /min [facility] Body temperature 2023-05-30 19:26:[address] [facility] Respiratory rate 2023-05-30 19:26:00 17 /min [facility] Body height 2023-05-30 19:26:00 152.4 cm [facility] Body weight 2023-05-30 19:26:00 81.738 kg [facility] BMI 2023-05-30 19:26:00 35.19 kg/m2 [facility] Oxygen saturation in Arterial blood by Pulse oximetry 2023-05-30 19:26:00 100 /min [facility] Systolic blood pressure 2022-07-16 16:37:00 107 mm[Hg] [facility] Diastolic blood pressure 2022-07-16 16:37:00 58 mm[Hg] [facility] Heart rate 2022-07-16 16:37:00 54 /min [facility] Body temperature 2022-07-16 16:37:[address] [facility] Respiratory rate 2022-07-16 16:37:00 18 /min [facility] Oxygen saturation in Arterial blood by Pulse oximetry 2022-07-16 16:37:00 97 /min [facility] Body weight 2022-07-16 08:41:00 83.961 kg [facility] BMI 2022-07-16 08:41:00 36.15 kg/m2 [facility] Body height 2022-07-14 21:54:00 152.4 cm [facility] Systolic blood pressure 2021-04-01 05:21:00 111 mm[Hg] [facility] Diastolic blood pressure 2021-04-01 05:21:00 69 mm[Hg] [facility] Heart rate 2021-04-01 05:21:00 67 /min [facility] Respiratory rate 2021-04-01 05:21:00 21 /min [facility] Oxygen saturation in Arterial blood by Pulse oximetry 2021-04-01 05:21:00 98 /min [facility] Body temperature 2021-04-01 01:56:[address] [facility] Body height 2021-04-01 01:56:00 149.9 cm [facility] Body weight 2021-04-01 01:56:00 83.915 kg [facility] BMI 2021-04-01 01:56:00 37.37 kg/m2 [facility] Procedures Procedure Date / Time Performed Performing Clinician Source POCT URINALYSIS 2023-05-30 19:52:00 Clive Kumar [facility] ASSIGNMENT OF BENEFITS 2023-05-30 19:16:19 Docto r Unassigned, Wheeler [facility] PHOSPHORUS 2022-07-16 08:42:00 Shankar Rodriguez [facility] MAGNESIUM 2022-07-16 08:42:00 Shankar Rodriguez [facility] BASIC METABOLIC PANEL (NA, K, CL, CO2, GLUCOSE, BUN, CREATININE, CA) 2022-07-16 08:42:[address] [facility] CBC WITH DIFF 2022-07-16 08:42:00 Shankar Rodriguez [facility] CBC WITHOUT DIFF 2022-07-15 17:11:00 [facility] 2022-07-15 12:37:[address] [facility] BASIC METABOLIC PANEL (NA, K, CL, CO2, GLUCOSE, BUN, CREATININE, CA) 2022-07-15 07:53:[address] [facility] CBC WITH DIFF 2022-07-15 07:53:00 Shankar Rodriguez [facility] HEMOGLOBIN 2022-07-15 01:23:00 Shankar Rodriguez [facility] TRANSFUSE PACKED RBC 2022-07-14 21:17:[address] [facility] PREPARE PACKED RBC 2022-07-14 21:07:[address] [facility] ABORH CONFIRMATION (LAB ONLY) 2022-07-14 19:30:[address] [facility] VITAMIN B12, LEVEL 2022-07-14 19:29:[address] [facility] FOLATE 2022-07-14 19:29:00 Shankar Rodriguez [facility] HB ABO GROUPING 2022-07-14 18:55:[address] [facility] COVID-19 (ID NOW RAPID TESTING) 2022-07-14 18:55:[address] [facility] FERRITIN SERUM 2022-07-14 16:57:00 Shankar Rodriguez [facility] TEST, SERUM 2022-07-14 16:57:[address] [facility] THYROID STIMULATING HORMONE 2022-07-14 16:57:[address] [facility] COMP. METABOLIC PANEL ([id number]) 2022-07-14 16:57:[address] [facility] IRON PANEL 2022-07-14 16:57:00 Shankar Rodriguez [facility] CBC WITH DIFF 2022-07-14 16:57:00 [facility] 2022-07-14 16:57:00 [facility] VITAM[facility] D, 25-OH 2022-07-14 16:57:00 [facility] ABDOMEN PELVIS WO CONTRAST 2022-07-14 16:55:[address] [facility] CONSENT/REFUSAL FOR DIAGNOSIS AND TREATMENT 2022-07-14 15:59:24 Doctor Unassigned, Wheeler [facility] XR CHEST 1 VW 2021-04-01 03:41:39 Lisa Ramírez [facility] LIPASE 2021-04-01 03:19:00 Lisa Ramírez [facility] TROPONIN I 2021-04-01 03:19:00 Lisa Ramírez [facility] THYROID STIMULATING HORMONE 2021-04-01 03:19:00 [address] Ramírez [facility] COMP. METABOLIC PANEL ([id number]) 2021-04-01 03:19:00 Lisa Ramírez [facility] CBC WITH DIFF 2021-04-01 03:19:00 Lisa Ramírez [facility] D-DIMER 2021-04-01 03:19:00 Lisa Ramírez [facility] NOTICE OF PRIVACY PRACTICES 2021-04-01 01:44:44 Doctor Unassigned, Wheeler [facility] CONSENT/REFUSAL FOR DIAGNOSIS AND TREATMENT 2021-04-01 01:44:15 Doctor Unassigned, Wheeler [facility] OP CORRESPONDENCE 2019-06-03 05:01:00 Doctor Gabriella ssigned, Wheeler [facility] Encounters Start Date/Time End Date/Time Encounter Type Admission Type Attending Clinicians Care Facility Care Department Encounter ID Source 2023-08-31 00:00:00 2023-08-31 00:00:00 Outpatient [id number] sue_Gerard [facility] [id number] [facility] 2023-06-01 00:00:00 2023-06-01 00:00:00 Case Management Yuliet Rodriguez [facility] [id number] [id number] [id number] [id number] [facility] 2023-05-30 14:20:00 2023-05-30 14:40:00 Urgent Care Clive Kumar Unknown, Attending [facility] 1.2840.114 350.1.13.10 4.2.7.2.686 [id number] [facility] 2023-05-30 14:20:00 2023-05-30 14:20:00 Outpatient R CLIVE KUMAR [facility] [id number] [facility] 2023-05-30 00:00:00 2023-05-30 00:00:00 Orders Only Doctor Unassigned, Wheeler [facility] [id number] 350.1.13.10 4.2.7.2.686 [id number] [facility] 2022-07-17 00:00:00 2022-07-17 00:00:00 Patient Secure Msg Doctor Unassigned, Wheeler [facility] 1.20.114 350.1.13.10 4.2.7.2.686 [id number] [facility] 2022-07-14 11:06:00 2022-07-16 13:28:00 Emergency Janis Damon [facility] [id number] 350.1.13.10 4.2.7.2.686 [id number] [facility] 2022-07-14 11:06:00 2022-07-16 13:28:00 Outpatient SHANKAR BOOKER [facility] [id number] [facility] 2021-03-31 21:00:00 2021-04-01 00:24:00 Emergency Lisa Ramírez [facility] [id number] 350.1.13.10 4.2.7.2.686 [id number] [facility] 2021-03-31 21:00:00 2021-04-01 00:24:00 Emergency X LISA RAMÍREZ [facility] ERT [id number] [facility] 2021-02-14 08:15:00 2021-02-14 08:15:00 Outpatient R RICK VAZ [facility] [id number] [facility] 2019-06-03 00:00:00 2019-06-03 00:00:00 Orders Only Doctor Unassigned, Wheeler [facility] [id number] [id number] 4.2.7.2.686 [id number] 2019-06-03 00:00:00 2019-06-03 00:00:00 Orders Only Doctor Unassigned, Wheeler [facility] [id number] 350.1.13.10 4.2.7.2.686 [id number] [facility] Results Test Description Test Time Test Comments Results Result Co mments Source [facility] W SPECIFIC [id number] 19:53:00* Test Item Value Reference Range Interpretation Comme nts POCT U SP GRAV (test code = 3255) 1.020 mg/dl 1.005-1.025 POCT PH U (test code = 3254) 5 mg/dl 5-8 POCT U LEUK EST (test code = 3263) negative Negative - Negative POCT U NIT (test code = 3262) negative Negative - Negative POCT U PROT (test code = 3259) trace Negative - Negative POCT U GLU (test code = 3256) normal Negative - Negative POCT U KETONE (test code = 3258) negative Negative - Negative POCT U UROBILI (test code = 3260) normal 0.2-1 POCT U BILI (test code = 3261) negative Negative - Negative POCT U BLD (test code = 3257) trace Negative - Negative POCT U COLOR (test code = 3266) yellow POCT U APPEAR (test code = 3267) clear VERONICA (test code = VERONICA) accurate developme nt and interpretation of all internal controls Lab Interpretation (test code = 09987-8) Abnormal [facility] P[facility] RBC (in units)2022-07-15 12:37:03* Test Item Value Reference Range Interpretation Comme nts Cross Match Result (test code = 4409) Compatible ISBT Blood Type Code (test code = 710463) Unit Blood Type (test code = 4410) O Pos Unit Number (test code = 4411) [id number] Blood Expiration Date & Time (test code = 525758) Status Information (test code = 4412) Issued Product Identification (test code = 4413) Red Blood Cells Product Code (test code = 4414) [id number] Performed at [facility] B Laboratory Services - [facility] Blood [address] [place], [place] [address]Toll Free: [phone] No. [id number] [facility] B12, [id number] 02:30:54* Test Item Value Reference Range Interpretation Comme nts VIT B12 (test code = 1684913962) 282 pg/mL 240-930 VERONICA (test code = VERONICA) Biotin has been reported to cause a positive bias, interpret results relative to patient's use of biotin. Lab Interpretation (test code = 41959-9) Normal [facility]2022-09-10 02:30:54* Test Item Value Reference Range Interpretation Comme nts FOLATE SER (test code = 7643397725) 5.8 ng/mL 3-20 Lab Interpretation (test cod e = 21385-5) Normal [facility] D, [id number] 02:11:14* Test Item Value Reference Range Interpretation Comme nts VIT D 25OH (test code = 68046-1) 38 ng/mL 25-80 VERONICA (test code = VERONICA) Deficiency: <20 ng/mLInsufficiency : 20-24 ng/mLOptimal: 25-80 ng/mL Lab Interpretation (test code = 60230-0) Normal [facility] Packed RBC (in units), 1 Units 2022-07-14 21:07:30* Test Item Value Reference Range Interpretation Comme nts Cross Match Result (test code = 4409) Compatible ISBT Blood Type Code (test code = 280847) Unit Blood Type (test code = 4410) O Pos Unit Number (test code = 4411) [id number] Blood Expiration Date & Time (test code = 677630) Status Information (test code = 4412) Issued Product Identification (test code = 4413) Red Blood Cells Product Code (test code = 4414) [id number] Performed at [facility] Blood [place] [address]Toll Free: [phone] No. [id number] [facility]IN [id number] 20:10:40* Test Item Value Reference Range Interpretation Comme nts FERRITIN (test code = 8408221803) 4.1 ng/mL 6-137 L VERONICA (test code = VERONICA) Biotin has been reported to cause a negative bias, interpret results relative to patient's use of biotin. Lab Interpretation (test code = 17490-9) Abnormal [facility] HospitalTHYROID STIMULATING [id number] 20:06:20 * Test Item Value Reference Range Interpretation Comme nts TSH (test code = 5968554209) See_Comment [Automated messa ge] The system which generated this result transmitted reference range: 0.45 - 4.70 mIU/L. The reference range was not used to interpret this result as normal/abnormal. Lab Interpretation (test code = 60336-0) Normal [facility] HospitalType and Screen - ONCE [id number] 19:45:29 * Test Item Value Reference Range Interpretation Comme nts ABO & RH (test code = 20) O Positive Performed at [facility] Blood [place] [address]Toll Free: [phone] No. [id number] IAT (test code = 1185) Negative Performed at [facility] Blood [place] [address]Toll Free: [phone] No. [id number] [facility] HospitalABORH Confirmation (Lab Only)2022-07-14 19:44:46* Test Item Value Reference Range Interpretation Comme nts ABO & RH (test code = 20) O Positive Performed at [facility] B Laboratory Services - [facility] [address] [place] [phone] Free: [phone] No. [id number] [facility] [id number] 19:42:16* Test Item Value Reference Range Interpretation Comme nts IRON (test code = 1509798475) 17 ug/dL 50-160 L TIBC (test code = 8642100498) 488 ug/dL 250-410 H % FE SAT (test code = 8447524110) 3 % 20-50 L Lab Interpretation (test cod e = 73174-4) Abnormal [facility] WITH [id number] 18:01:43* Test Item Value Reference Range Interpretation Comme nts WBC (test code = 6690-2) See_Comment [Automated messa ge] The system which generated this result transmitted reference range: 4.30 - 11.10 10*3/?L. The reference range was not used to interpret this result as normal/abnormal. RBC (test code = 789-8) See_Comment L [Automated messa ge] The system which generated this result transmitted reference range: 3.93 - 5.25 10*6/?L. The reference range was not used to interpret this result as normal/abnormal. HGB (test code = 718-7) 6.4 g/dL 11.6-15 L HCT (test code = 4544-3) 23.7 % 35.7-45.2 L MCV (test code = 787-2) 62.0 fL 80.6-95.5 L MCH (test code = 785-6) 16.8 pg 25.9-32.8 L MCHC (test code = 786-4) 27.0 g/dL 31.6-35.1 L RDW-SD (test code = 74292-8) 38.8 fL 39-49.9 L RDW-CV (test code = 788-0) 17.8 % 12-15.5 H PLT (test code = 777-3) See_Comment H [Automated messa ge] The system which generated this result transmitted reference range: 166 - 358 10*3/?L. The reference range was not used to interpret this result as normal/abnormal. MPV (test code = 14984-9) 8.6 fL 9.5-12.9 L NRBC/100 WBC (test code = 7874203918) See_Comment [Automated [employer] ssage] The system which generated this result transmitted reference range: 0.0 - 10.0 /100 WBCs. The reference range was not used to interpret this result as normal/abnormal. NRBC x10^3 (test code = 5496934776) See_Comment [Automated messa ge] The system which generated this result transmitted reference range: 10*3/?L. The reference range was not used to interpret this result as normal/abnormal. GRAN MAT (NEUT) % (test code = 770-8) 79.3 % IMM GRAN % (test code = 0828935287) 0.50 % LYMPH % (test code = 736-9) 13.4 % MONO % (test code = 5905-5) 6.0 % EOS % (test code = 713-8) 0.1 % BASO % (test code = 706-2) 0.7 % GRAN MAT x10^3(ANC) (test code = 8863048857) 6.04 10*3/uL 1.88-7.09 IMM GRAN x10^3 (test code = 3728703762) 0.04 10*3/uL 0-0.06 LYMPH x10^3 (test code = 731-0) 1.02 10*3/uL 1.32-3.29 L MONO x10^3 (test code = 742-7) 0.46 10*3/uL 0.33-0.92 EOS x10^3 (test code = 711-2) 0.03-0.39 L BASO x10^3 (test code = 704-7) 0.05 10*3/uL 0.01-0.07 ELLIPTO/OVAL (test code = 55176-1) 2+ See_Comment A [Automated messa ge] The system which generated this result transmitted reference range: (none). The reference range was not used to interpret this result as normal/abnormal. POLYCHROMASIA (test code = 19344-8) 2+ See_Comment [Automated messa ge] The system which generated this result transmitted reference range: 2+. The reference range was not used to interpret this result as normal/abnormal. TARGET CELLS (test code = 25581-5) 2+ See_Comment A [Automated Ivaluaa ge] The system which generated this result transmitted reference range: (none). The reference range was not used to interpret this result as normal/abnormal. REACT LYMPHS (test code = 0172673408) Rare Lab Interpretation (test code = 53918-5) Abnormal [facility] HospitalPREGNANCY TEST, [id number] 17:56:33* Test Item Value Reference Range Interpretation Comme nts PREG SERUM (test code = 8752988433) Negative VERONICA (test code = VERONICA) Less than 10 IU/L. ?If low titer or ectopic is suspected, resubmit specimen in 48-72 hours. [facility]. METABOLIC PANEL (64940)2022-07-14 17:25:06* Test Item Value Reference Range Interpretation Comme nts NA (test code = 0762400607) 138 mmol/L 135-145 K (test code = 9268821336) 4.0 mmol/L 3.5-5 CL (test code = 8396207539) 106 mmol/L 98-108 CO2 TOTAL (test code = 0473207204) 24 mmol/L 23-31 AGAP (test code = 7979908350) 2-16 BUN (test code = 7829087174) 9 mg/dL 7-23 GLUCOSE (test code = 2899531274) 106 mg/dL 70-110 CREATININE (test code = 4161246743) 0.86 mg/dL 0.5-1.04 TOTAL BILI (test code = 6934034339) 0.5 mg/dL 0.1-1.1 CALCIUM (test code = 0798260542) 9.8 mg/dL 8.6-10.6 T PROTEIN (test code = 0461904646) 7.1 g/dL 6.3-8.2 ALBUMIN (test code = 4794126126) 4.3 g/dL 3.5-5 ALK PHOS (test code = 5660026879) 79 U/L 34-122 ALTv (test code = 1742-6) 14 U/L 5-35 AST(SGOT) (test code = 2714763039) 17 U/L 13-40 eGFR (test code = 0844301507) mL/min/1.73m2 VERONICA (test code = VERONICA) Association of Glomerular Filtration Rate (GFR) and Staging of Kidney Disease* + + +- +| GFR (mL/min/1.73 m2) ?| With Kidney Damage ?| ?Without Kidney Damage+ ------+ ----+ ------+| ?>90 ?| ?Stage one ?| ? Normal ?+ -+ + -+| ?60-89 ?| ?Stage two ?| ? Decreased GFR ? + + +- +| ?30-59 ?| ?Stage three ?| ? Stage three ? + + +- +| ?15-29 ?| ?Stage four ? | ? Stage four ?+ -+ + -+| ?<15 (or dialysis) ? ?| ?Stage five ? | ? Stage five ?+ -+ + -+ *Each stage assumes the associated GFR level [...] or urine or abnormalities in imaging tests). [facility] HospitalXR CHEST 1 [id number] 04:28:11No evidence of acute cardiopulmonary disease. Preliminary Report Dictated by Resident: Fredis Jane MD., have reviewed this study and agree with the abovereport.EXAM: XR CHEST 1 VW 03/31/2021 10:40 PM HISTORY: 41 years-old Female with PALPITATIONS, CHEST PAIN COMPARISON: none TECHNIQUE: AP view of the chest. FINDINGS: The lungs are clear. There is no focal consolidation, pleural effusion orpneumothorax. The cardiomediastinal silhouette is within normal limits. ?No acute osseousabnormalities. [facility], Radiant Results Inft User - 03/31/2021 11:29 PM CDTFormatting of this note mightbe different from the original.EXAM: XR CHEST 1 VW 03/31/2021 10:40 PMHISTORY: 41 years-old Female with PALPITATIONS, CHEST PAIN COMPARISON: noneTECHNIQUE: AP view of the chest.FINDINGS:The lungs are c lear. There is no focal consolidation, pleural effusion orpneumothorax.The cardiomediastinal silhouette is within normal limits. No acute osseousabnormalities.IMPRESSIONNo evidence of acute cardiopulmonary disease.Preliminary Report Dictated by Resident: Jerri Wright, Fredis Culver MD., have reviewed this study and agree with the abovereport.[facility] HospitalTHYROID STIMULATING [id number] 04:22:07* Test Item Value Reference Range Interpretation Comme nts TSH (test code = 3290886925) See_Comment [Automated messa ge] The system which generated this result transmitted reference range: 0.45 - 4.70 mIU/L. The reference range was not used to interpret this result as normal/abnormal. Lab Interpretation (test code = 38488-5) Normal [facility] HospitalTROPONIN [id number] 04:03:26* Test Item Value Reference Range Interpretation Comme nts TROPONIN I (test code = 6079040779) 0.000 ng/mL See_Comment [Automated message] The system which generated this result transmitted reference range: <=0.034. The reference range was not used to interpret this result as normal/abnormal. VERONICA (test code = VERONICA) Equal or Less than 0.034 ng/ml---Normal ?Note: Cardiac troponin begins to [...] patient's use of biotin. ? Lab Interpretation (test code = 24649-0) Normal [facility] HospitalD-[id number] 03:53:09* Test Item Value Reference Range Interpretation Comments D-DIMER (test code = 2305711792) See_Comment [Automated message] The system which generated this result transmitted reference range: <0.41 ?g/mL (FEU). The reference range was not used to interpret this result as normal/abnormal. VERONICA (test code = VERONICA) This test may be used in conjunction with a clinical pretest [...] context, in forming a diagnosis. Lab Interpretation (test code = 99329-4) Normal [facility] HospitalCOMP. METABOLIC PANEL (18810)2021-04-01 03:50:08* Test Item Value Reference Range Interpretation Comme nts NA (test code = 9853272550) 139 mmol/L 135-145 K (test code = 5439310065) 3.3 mmol/L 3.5-5.0 L CL (test code = 9947282427) 106 mmol/L 98-108 CO2 TOTAL (test code = 6081191808) 24 mmol/L 23-31 AGAP (test code = 5076585858) 2-16 BUN (test code = 5237974271) 8 mg/dL 7-23 GLUCOSE (test code = 5682608932) 101 mg/dL 70-110 CREATININE (test code = 5393696970) 0.64 mg/dL 0.50-1.04 TOTAL BILI (test code = 2040881953) 0.4 mg/dL 0.1-1.1 CALCIUM (test code = 0194633701) 10.9 mg/dL 8.6-10.6 H T PROTEIN (test code = 7471652332) 8.0 g/dL 6.3-8.2 ALBUMIN (test code = 4574577168) 4.3 g/dL 3.5-5.0 ALK PHOS (test code = 0414064796) 85 U/L 34-122 ALTv (test code = 1742-6) 16 U/L 5-35 AST(SGOT) (test code = 6991445194) 25 U/L 13-40 eGFR (test code = 2241660028) mL/min/1.73m2 VERONICA (test code = VERONICA) Association of [...] or abnormalities in imaging tests). Lab Interpretation (test code = 67179-8) Abnormal [facility] HospitalLIPASE2021-05-28 03:49:48* Test Item Value Reference Range Interpretation Comme nts LIPASE (test code = 1105990415) 143 U/L 0-220 Lab Interpretation (test cod e = 56236-7) Normal [facility] HospitalCB WITH [id number] 03:41:26* Test Item Value Reference Range Interpretation Comme nts WBC (test code = 6690-2) See_Comment [Automated messa ge] The system which generated this result transmitted reference range: 4.30 - 11.10 10*3/?L. The reference range was not used to interpret this result as normal/abnormal. RBC (test code = 789-8) See_Comment [Automated messa ge] The system which generated this result transmitted reference range: 3.93 - 5.25 10*6/?L. The reference range was not used to interpret this result as normal/abnormal. HGB (test code = 718-7) 10.2 g/dL 11.6-15.0 L HCT (test code = 4544-3) 35.3 % 35.7-45.2 L MCV (test code = 787-2) 70.2 fL 80.6-95.5 L MCH (test code = 785-6) 20.3 pg 25.9-32.8 L MCHC (test code = 786-4) 28.9 g/dL 31.6-35.1 L RDW-SD (test code = 62082-7) 62.9 fL 39.0-49.9 H RDW-CV (test code = 788-0) 26.5 % 12.0-15.5 H PLT (test code = 777-3) See_Comment H [Automated messa ge] The system which generated this result transmitted reference range: 166 - 358 10*3/?L. The reference range was not used to interpret this result as normal/abnormal. MPV (test code = 59423-9) 9.0 fL 9.5-12.9 L NRBC/100 WBC (test code = 3494796116) See_Comment [Automated me ssage] The system which generated this result transmitted reference range: 0.0 - 10.0 /100 WBCs. The reference range was not used to interpret this result as normal/abnormal. NRBC x10^3 (test code = 5994631429) <0.01 See_Comment [Automated messa ge] The system which generated this result transmitted reference range: 10*3/?L. The reference range was not used to interpret this result as normal/abnormal. GRAN MAT (NEUT) % (test code = 770-8) 58.3 % IMM GRAN % (test code = 7283928166) 0.20 % LYMPH % (test code = 736-9) 31.5 % MONO % (test code = 5905-5) 8.7 % EOS % (test code = 713-8) 0.6 % BASO % (test code = 706-2) 0.7 % GRAN MAT x10^3(ANC) (test code = 5937079645) 5.20 10*3/uL 1.88-7.09 IMM GRAN x10^3 (test code = 1985994859) <0.03 0.00-0.06 LYMPH x10^3 (test code = 731-0) 2.80 10*3/uL 1.32-3.29 MONO x10^3 (test code = 742-7) 0.77 10*3/uL 0.33-0.92 EOS x10^3 (test code = 711-2) 0.05 10*3/uL 0.03-0.39 BASO x10^3 (test code = 704-7) 0.06 10*3/uL 0.01-0.07 Lab Interpretation (test code = 25340-0) Abnormal [facility]
[2023-11-21 06:37] LABS: Hematocrit 23.9 % (36.0-45.0); MCV 56.7 fL (80-100); MPV 8.1 fL (7.6-11.3); Platelets 481 thou/uL (152-406); RBC Red Blood Cell Count 4.22 M/uL (3.86-4.86)
[2023-11-21 06:49] LABS: Albumin 3.7 g/dL (3.4-5.0); Bilirubin Total 0.3 mg/dL (0.2-1.0); Potassium 3.3 mEq/L (3.5-5.1)
[2023-11-21 07:07] LABS: Specific Gravity 1.015 (1.005-1.030)
[2023-11-21 07:12] LABS: Specific Gravity 1.015 (1.005-1.030); Urine Bacteria None Seen /HPF (<20); Urine Bilirubin NEGATIVE (Negative); Urine Blood Negative (Negative); Urine Clarity Clear (Clear); Urine Color Colorless (Yellow); Urine Glucose NEGATIVE (Negative); Urine Mucus Slight /HPF (None Seen); Urine Protein NEGATIVE (Negative); Urine RBC <5 /HPF (None Seen); Urine Urobilinogen Normal (Normal)
[2023-11-21 08:04] LABS: Anisocytosis 2+; Blood Morphology Comment NOTED (NOT SEEN); Hypochromasia 2+; Ovalocytes 1+; Platelet Estimate ADEQ; Poikilocytosis 1+
--- NOTE | 2023-11-21 08:06 | RAD REPORT ---
EXAM DESCRIPTION: CT - Abdomen Pelvis W Contrast - 11/21/2023 7:13 am CLINICAL HISTORY: ABD PAIN COMPARISON: Abdomen Pelvis W Contrast dated 07/11/2022 TECHNIQUE: Thin cut axial CT imaging of the abdomen and pelvis was performed following intravenous a dministration of 100 mL Isovue 300. Multiplanar reformats were generated and reviewed. All CT scans are performed using dose optimization technique as appropriate and may include automated exposure control or mA/KV adjustment according to patient size. FINDINGS: No suspicious findings in the lung bases. The liver, spleen, adrenal glands, and pancreas show no suspicious findings. Gallbladder wall is mild ly thickened with mucosal hyperenhancement. 1.8 cm cholesterol containing stone near the neck. Symmetric renal function is seen with no hydronephrosis or suspicious renal mass. No dilated bowel loops or bowel wall thickening. No free air, free fluid or inflammatory stranding. N o hernia, mass or bulky lymphadenopathy. 5 cm anterior wall fibroid uterus. The urinary bladder is wi thout significant finding. No suspicious bony findings. IMPRESSION: Gallbladder wall is mildly thickened and hyperenhancing, please correlate clinically for acute cholecystitis. A 1.8 cm cholesterol containing gallstone is seen near the gallbladder neck.
--- NOTE | 2023-11-21 09:32 | RAD REPORT ---
EXAM DESCRIPTION: US - Abdomen Exam Limited - 11/21/2023 9:02 am CLINICAL HISTORY: ABD PAIN COMPARISON: Abdomen Pelvis W Contrast dated 11/21/2023 TECHNIQUE: Sonographic grayscale and color flow images of the right upper abdominal quadrant were o btained. FINDINGS: The gallbladder is suboptimally distended, demonstrates a single large shadowing stone bridgette r the neck. Wall thickening up to 9 mm in thickness, with some wall edema noted. Trace pericholecysti c fluid. Multiple foci of echogenicity along the gallbladder wall with comet tail artifact are noted. The common bile duct is normal measuring 3 mm. The liver demonstrates no findings of intrahepatic biliary dilatation. IMPRESSION: Wall thickening with some wall edema and trace pericholecystic fluid. Echogenic foci wit h comet tail artifact along the gallbladder wall. Findings may relate to adenomyomatosis, however giv en the degree of edema, acute cholecystitis is not entirely excluded. Please correlate clinically for presence of focal tenderness. Large gallstone near the neck.
--- NOTE | 2023-11-21 09:42 | ER ---
Nurse's Notes [facility] Name: Rosmery Treadwell Age: 43 yrs Sex: Female : 1980 Arrival Date: 11/21/2023 Time: 05:56 Bed 18 Private MD: Diagnosis: Acute cholecystitis Presentation: 11/21 06:13 Chief complaint: Patient states: I have epigastric pain that radiates directly to my jb4 back. I am having N/v/D since 0000. Coronavirus screen: At this time, the client does not indicate any symptoms associated with coronavirus-19. Ebola Screen: No symptoms or risks identified at this time. Initial Sepsis Screen: Does the patient meet any 2 criteria? No. Patient's initial sepsis screen is negative. Does the patient have a suspected source of infection? No. Patient's initial sepsis screen is negative. Risk Assessment: Do you want to hurt yourself or someone else? Patient reports no desire to harm self or others. Onset of symptoms was November 21, 2023. Transition of care: patient was not received from another setting of care. 06:13 Method Of Arrival: Ambulatory jb4 06:13 Acuity: SLIM 3 jb4 Historical: - Allergies: 06:15 No Known Allergies; jb4 - PMHx: 06:15 Anemia; Atrial Fib; jb4 - PSHx: 06:15 tubal ligation; jb4 - Immunization history:: Adult Immunizations up to date. - Social history:: Smoking status: Patient denies any tobacco usage or history of. Screenin:37 [facility] ED Fall Risk Assessment (Adult) History of falling in the last 3 months, nw1 including since admission No falls in past 3 months (0 pts) Confusion or Disorientation No (0 pts) Intoxicated or Sedated No (0 pts) Impaired Gait No (0 pts) Mobility Assist Device Used No (0 pt) Altered Elimination No (0 pt) Score/Fall Risk Level 0 - 2 = Low Risk Oriented to surroundings, Maintained a safe environment, Educated pt \T\ family on fall prevention, incl call for assistance when getting out of bed, Assessed \T\ reinforced patient's understanding of fall precautions, Provided non-skid footwear, Hourly rounding (assess needs \T\ fall precautionary measures) done, Used ambulatory aids as needed (educated on \T\ assisted with). Abuse screen: Denies threats or abuse. Denies injuries from another. Nutritional screening: No deficits noted. Tuberculosis screening: No symptoms or risk factors identified. Assessment: 06:37 Reassessment: Pt states mid-epigastric pain that radiates to mid back. Pt states she nw1 has had this off and on for months but today she could not sleep. Pt states that she does have a PCP but has not seen her for this. General: Appears in no apparent distress. comfortable, Behavior is calm, cooperative, appropriate for age. Pain: Complains of pain in epigastric area Pain radiates to thoracic area Pain currently is 7 out of 10 on a pain scale. Neuro: No deficits noted. Level of Consciousness is awake, alert, obeys commands, Oriented to person, place, time, situation, Appropriate for age. Respiratory: No deficits noted. Airway is patent Trachea midline Respiratory effort is even, unlabored, Respiratory pattern is regular, symmetrical. GI: Bowel sounds present X 4 quads. Abd is soft and non tender X 4 quads. Derm: No deficits noted. No signs and/or symptoms reported regarding the dermatologic system. Musculoskeletal: No deficits noted. No signs and/or symptoms reported regarding the musculoskeletal system. 06:59 Reassessment: urine sent via tubing system at this time. nw1 08:00 Reassessment: Patient appears in no apparent distress at this time. Patient and/or iw family updated on plan of care and expected duration. Pain level reassessed. Patient is alert, oriented x 3, equal unlabored respirations, skin warm/dry/pink. Patient states feeling better. Patient states symptoms have improved. Vital Signs: 06:13 BP 132 / 71; Pulse 84; Resp 16; Temp 98.6(TE); Pulse Ox 100% on R/A; Weight 74.84 kg jb4 (R); Height 5 ft. 0 in. (R); 06:37 BP 113 / 67; Pulse 67; Pulse Ox 100% on R/A; nw1 07:00 BP 109 / 62; Pulse 57; Resp 18; Pulse Ox 100% on R/A; nw1 06:13 Body Mass Index 32.22 (74.84 kg, 152.4 cm) jb4 Lucia Coma Score: 06:37 Eye Response: spontaneous(4). Motor Response: obeys commands(6). Verbal Response: nw1 oriented(5). Total: 15. ED Course: 05:59 Patient arrived in ED. jj6 06:15 Triage completed. jb4 06:15 Arm band placed on right wrist. jb4 06:21 No provider procedures requiring assistance completed. Initial lab(s) drawn, by me, nw1 sent to lab. Inserted saline lock: 18 gauge in right antecubital area, using aseptic technique. Blood collected. 06:24 Lipase Sent. nw1 06:24 CMP Sent. nw1 06:24 CBC with Diff Sent. nw1 06:35 Raymond Camejo MD is Attending Physician. ec2 06:37 Rupinder Pa RN is Primary Nurse. nw1 06:37 Patient has correct armband on for positive identification. Placed in gown. Bed in low nw1 position. Call light in reach. Side rails up X2. Provided Education on: POC. Door closed. Warm blanket given. 06:59 Manual Differential Sent. nw1 06:59 PREGU Sent. nw1 06:59 UAM Sent. nw1 07:13 Attending Physician role handed off by Raymond Camejo MD rn 07:13 Leoncio Salas MD is Attending Physician. rn 07:15 CT Abd/Pelvis - IV Contrast Only In Process Unspecified. EDMS 09:04 US Abdomen Limited In Process Unspecified. EDMS 09:15 Primary Nurse role handed off by Rupinder Pa, LUPE iw 09:15 Lori Pa RN is Primary Nurse. iw 09:41 Ariella Sparrow MD is Hospitalizing Provider. rn Administered Medications: 10:11 Drug: Piperacillin-Tazobactam IVPB 3.375 grams IVPB once over 60 mins; (mix in NS 100 iw mL) Route: IVPB; Infused Over: 60 mins; Site: right antecubital; 10:45 Follow up: IV Status: Completed infusion iw Medication: 06:37 VIS not applicable for this client. nw1 Outcome: 09:41 Decision to Hospitalize by Provider. rn 12:22 Patient left the ED. me1 Signatures: Dispatcher [employer] Lori Santos, LUPE RN iw Leoncio Salas MD MD rn Bryson, James, RN RN jb4 Mary Malhotra jj6 Donita Marmolejo RN RN me1 Raymond Camejo MD MD ec2 Rupinder Pa, LUPE RN nw1
--- NOTE | 2023-11-21 09:42 | EDPHYS ---
Physician Documentation [facility] Name: Rosmery Treadwell Age: 43 yrs Sex: Female : 1980 Arrival Date: 11/21/2023 Time: 05:56 Bed 18 Private MD: ED Physician Leoncio Salas HPI: 11/21 06:41 This 43 yrs old Black Female presents to ER via Ambulatory with complaints of Abdominal ec2 Pain, Nausea/Vomiting/Diarrhea, Back Pain. 06:41 Patient arrives today for evaluation of abdominal pain. States that she started having ec2 epigastric abdominal pain that started around midnight radiating to the back. Reports some associated nausea without vomiting, denies diarrhea symptoms, denies cough and cold symptoms. Patient reports similar types of pain in the past.. Historical: - Allergies: 06:15 No Known Allergies; jb4 - PMHx: 06:15 Anemia; Atrial Fib; jb4 - PSHx: 06:15 tubal ligation; jb4 - Immunization history:: Adult Immunizations up to date. - Social history:: Smoking status: Patient denies any tobacco usage or history of. ROS: 06:41 Constitutional: as per hpi ec2 Exam: 06:41 Constitutional: GEN: NAD Head: atraumatic Eyes: EOMI Ears: External ears are ec2 normal. CV: regular rate LUNGS: no respiratory distress ABD: non-distended, soft, tender in the right lower quadrant, no guarding, not rigid SKIN: no evidence of rashes MSK: no evidence of trauma NEURO: moves all extremities equally Vital Signs: 06:13 BP 132 / 71; Pulse 84; Resp 16; Temp 98.6(TE); Pulse Ox 100% on R/A; Weight 74.84 kg jb4 (R); Height 5 ft. 0 in. (R); 06:37 BP 113 / 67; Pulse 67; Pulse Ox 100% on R/A; nw1 07:00 BP 109 / 62; Pulse 57; Resp 18; Pulse Ox 100% on R/A; nw1 06:13 Body Mass Index 32.22 (74.84 kg, 152.4 cm) jb4 Lucia Coma Score: 06:37 Eye Response: spontaneous(4). Motor Response: obeys commands(6). Verbal Response: nw1 oriented(5). Total: 15. MDM: 06:35 Patient medically screened. ec2 06:41 Data reviewed: vital signs. ED course: Patient arrives today for epigastric abdominal ec2 pain. Examination remarkable for abdominal findings as noted above. Will obtain lab work, CT imaging of the abdomen pelvis. Currently considering process such as pancreatitis, appendicitis, UTI.. 07:04 ED course: Metabolic profile with slight hypokalemia with potassium of 3.3, lipase ec2 within normal ranges, CBC without leukocytosis, does show anemia, hemoglobin of 7.2, compared to previous, patient has chronic anemia. Patient with pending CT abdomen pelvis. . 07:17 ED course: Patient signed out to oncoming physician with pending CT abdomen pelvis.. ec2 09:40 Differential diagnosis: Nonspecific abd pain, gastritis, cholecystitis, pancreatitis, rn viral gastroenteritis, gastroenteritis. Management of patient was discussed with the following: Boring Machine Operator Horizontal: Consulted with Dr. Linares, request admission to hospitalist service and will evaluate patient in ER.. Counseling: I had a detailed discussion with the patient and/or guardian regarding the historical points, exam findings, and any diagnostic results supporting the discharge/admit diagnosis, lab results, radiology results, the need for further work-up and treatment in the hospital. 11/21 06:22 Order name: CBC with Diff; Complete Time: 08:14 ec2 11/21 06:22 Order name: CMP; Complete Time: 07:02 ec2 11/21 06:22 Order name: UAM; Complete Time: 07:12 ec2 11/21 06:22 Order name: PREGU; Complete Time: 07:12 ec2 11/21 06:22 Order name: Lipase; Complete Time: 07:02 ec2 11/21 06:43 Order name: Manual Differential; Complete Time: 08:14 EDMS 11/21 10:56 Order name: CBC with Automated Diff EDMS 11/21 10:56 Order name: CBC with Automated Diff EDMS 11/21 10:56 Order name: Comprehensive Metabolic Panel EDMS 11/21 10:56 Order name: Comprehensive Metabolic Panel EDMS 11/21 10:57 Order name: Ferritin EDMS 11/21 10:57 Order name: Iron EDMS 11/21 10:57 Order name: Vitamin B12 Level EDRI 11/21 10:57 Order name: Miscellaneous Test Lab EDMS 11/21 10:57 Order name: Miscellaneous Test Lab EDRI 11/21 11:00 Order name: Type and Screen EDRI 11/21 06:41 Order name: CT Abd/Pelvis - IV Contrast Only; Complete Time: 08:14 ec2 11/21 08:15 Order name: US Abdomen Limited; Complete Time: 09:36 rn 11/21 10:56 Order name: CONS Physician Consult EDRI 11/21 09:37 Order name: NPO; Complete Time: 10:02 rn Administered Medications: 10:11 Drug: Piperacillin-Tazobactam IVPB 3.375 grams IVPB once over 60 mins; (mix in NS 100 iw mL) Route: IVPB; Infused Over: 60 mins; Site: right antecubital; 10:45 Follow up: IV Status: Completed infusion iw Disposition Summary: 11/21/23 09:41 Hospitalization Ordered Notes: Hospitalization Status: Inpatient Admission rn Provider: Ariella Sparrow rn [facility] ([facility]) rn Condition: Stable rn Problem: new rn Symptoms: have improved rn Bed/Room Type: Standard rn Room Assignment: 413(11/21/23 11:00) mv Diagnosis - Acute cholecystitis rn Forms: - Medication Reconciliation Form rn - SBAR form rn - Leadership Thank You Letter rn Signatures: Dispatcher [employer] Lori Santos, RN Leoncio Tobar MD MD rn Bryson, James, RN RN jb4 Raymond Camejo MD MD ec2 Amna Valentin mv Corrections: (The following items were deleted from the chart) 11:00 09:41 rn mv
[2023-11-21] MEDS ORDERED: PIPERACIL/TAZO 3.375 GM VIAL IV ONE (09:59)
[2023-11-21] MEDS ORDERED: NA CHLORIDE 0.9% 100 ML ONE (10:00)
[2023-11-21] MEDS ORDERED: MORPHINE 2 MG/ML SYR IV PRN (10:51)
[2023-11-21] MEDS ORDERED: ACETAMINOPHEN 500 MG TAB PO PRN (10:51)
--- NOTE | 2023-11-21 11:00 | P.HP ---
Certification for Inpatient Patient admitted to: Inpatient With expected LOS: >2 Midnights Patient will require the following post-hospital care: None Practitioner: I am a practitioner with admitting privileges, knowledge of patient current condition, hospital course, and medical plan of care. Services: Services provided to patient in accordance with Admission requirements found in Title 42 Section 412.3 of the Code of Federal Regulations Patient History Date of Service: 11/21/23 Reason for admission: Abdominal pain History of Present Illness: Patient is a very pleasant 43-year-old female with a history of atrial fibrillation and iron deficiency anemia who comes into the hospital with epigastric tenderness. Patient has been having this pain on and off for the last few months. It has gotten gradually worse. It is painful a few hours after she eats but the worst pain is normally at night. She has not had this pain up until a few months ago. She decided to come into the emergency room for further evaluation. In the emergency room her liver function test is normal. However her gallbladder ultrasound reveals some gallbladder wall thickening. At this time, she will be admitted to the hospital for IV fluids. Will keep her n.p.o. General surgery will be consulted. Will continue with IV antibiotic therapy. Patient states she had atrial fibrillation a few years ago. She took metoprolol for short-term but afterwards stopped. She is never been on anticoagulation. Patient is low risk for any cardiopulmonary complications. She is anemic and will work her anemia. Anticipate her being iron deficient. Will monitor her H&H closely. Allergies No Known Allergies Allergy (Verified 08/28/14 22:16) Home Medications: Aspirin [Aspirin EC 81 MG] 81 mg PO DAILY #30 tablet. 10/15/17 Cyanocobalamin (Vitamin B-12) [Vitamin B-12] 1,000 mcg PO DAILY #30 tablet 10/15/17 Ferrous Sulfate [Ferrous Sulfate*] 325 mg PO BID #60 tab 10/15/17 Folic Acid 1 mg PO DAILY #30 tablet 10/15/17 Metoprolol Tartrate [Lopressor*] 25 mg PO BID #60 tab 10/15/17 - Past Medical/Surgical History Diabetic: No -: AFIB -: anemia -: tubal ligation - Family History Mother Medical History: Hypertension, Seizures, Liver disease - Social History Smoking Status: Never smoker Alcohol use: Yes CD- Drugs: No Caffeine use: Yes Review of Systems 10-point ROS is otherwise unremarkable Physical Examination - Vital Signs Temperature: 98 F (vitals reviewed) - Physical Exam General: Alert, In no apparent distress, Oriented x3 HEENT: Atraumatic, PERRLA, Mucous membr. moist/pink, EOMI, Sclerae nonicteric Neck: Supple, 2+ carotid pulse no bruit, No LAD, Without JVD or thyroid abnormality Respiratory: Clear to auscultation bilaterally, Normal air movement Cardiovascular: Regular rate/rhythm, Normal S1 S2, No murmurs Gastrointestinal: Normal bowel sounds, Soft and benign, Non-distended, No rebound, No guarding, Other (mildly tender; ) Musculoskeletal: No clubbing, No swelling, No tenderness Integumentary: No rashes Neurological: Normal gait, Normal speech, Normal strength at 5/5 x4 extr, Normal tone, Sensation intact, Cranial nerves 3-12 intact, Normal affect Lymphatics: No axilla or inguinal lymphadenopathy - Studies Laboratory Data (last 24 hrs) 11/21/23 11/21/23 06:21 06:21 WBC 7.80 Hgb 7.2 L Hct 23.9 L Plt Count 481 H Sodium 137 Potassium 3.3 L BUN 7 Creatinine 0.78 Glucose 107 H Total Bilirubin 0.3 AST 5 L ALT 16 Alkaline Phosphatase 81 Lipase 38 Assessment & Plan - Problems (Diagnosis) (1) Acute cholecystitis Current Visit: Yes Status: Acute (2) Anemia Current Visit: No Status: Acute (3) Atrial fibrillation Current Visit: No Status: Acute - Plan Plan: 1. IV fluids 2. IV antibiotics 3. Surgery consultation 4. Pain control 5. Monitor labs and continue with anemia workup 6. GI and DVT prophylaxis Discharge Plan: Home Plan to discharge in: Greater than 2 days - Advance Directives Does patient have a Living Will: No Does patient have a Durable POA for Healthcare: No - Code Status/Comfort Care Code Status Assessed: Yes Code Status: Full Code Critical Care: No Time Spent Managing PTS Care (In Minutes): 45
[2023-11-21] MEDS: NA CHLORIDE 0.9% 1,000 ML IV SCH ×2 (12:29→20:58)
[2023-11-21 12:45] VITALS: BMI 32.2
[2023-11-21 13:00] VITALS: O2SAT 99
[2023-11-21] MEDS: PIPER TAZO 3.375 GM in NA CHLORIDE 0.9% 100 ML IV SCH (15:56)
[2023-11-21] MEDS: ONDANSETRON 4 MG/2 ML VIAL IV PRN (20:58)
[2023-11-22] MEDS: PIPER TAZO 3.375 GM in NA CHLORIDE 0.9% 100 ML IV SCH ×3 (00:34→16:41)
--- NOTE | 2023-11-22 06:05 | P.PN ---
Date of Service: 11/21/23 Spoke to general surgery. They want to try to hold surgery-if patient is able to tolerate diet and her symptoms are stable then patient can follow-up for an elective procedure. Anemia worked up pending. If she is able to tolerate diet then plan to discharge with outpatient follow-up as long if her hemoglobin is stable.
[2023-11-22 06:38] LABS: Hematocrit 20.9 % (36.0-45.0); MCV 56.4 fL (80-100); MPV 8.2 fL (7.6-11.3); Platelets 380 thou/uL (152-406)
[2023-11-22] MEDS: NA CHLORIDE 0.9% 1,000 ML IV SCH ×3 (07:00→16:41)
[2023-11-22 07:20] LABS: Albumin 3.1 g/dL (3.4-5.0); Bilirubin Total 0.5 mg/dL (0.2-1.0); Ferritin 1.5 ng/mL (8-388); Folic Acid, (Folate) 4.9 ng/mL (3.1-17.5); Potassium 3.4 mEq/L (3.5-5.1); Protein, Total 6.7 g/dL (6.4-8.2)
[2023-11-22] MEDS ORDERED: POTASSIUM CL SA 10 MEQ TAB PO ONE (08:15)
[2023-11-22 08:57] LABS: Anisocytosis 1+; Blood Morphology Comment NOTED (NOT SEEN); Hypochromasia 2+; Ovalocytes 1+; Platelet Estimate ADEQ
[2023-11-22] MEDS ORDERED: NA CHLORIDE 0.9% 250 ML ONE ×2 (09:24→13:23)
--- NOTE | 2023-11-22 11:33 | P.PN ---
Subjective Date of Service: 11/22/23 Chief Complaint: Abdominal pain Pt is resting comfortably in bed. Pt denies any abd pain. She is NPO for possible surgery by Gen surgery. No other complaints Review of Systems Unremarkable General: Unremarkable Eyes: Unremarkable ENT: Unremarkable Respiratory: Unremarkable Cardiovascular: Unremarkable Gastrointestinal: Unremarkable Genitourinary: Unremarkable Musculoskeletal: Unremarkable Integumentary: Unremarkable Neurological: Unremarkable Lymphatics: Unremarkable Physical Examination - Vital Signs Temperature: 97.8 F Blood Pressure: 100/55 Pulse: 66 Respirations: 19 Pulse Ox (%): 98 - Physical Exam General: Alert, In no apparent distress, Oriented x3 HEENT: Atraumatic, Normocephalic, PERRLA Neck: Supple, 2+ carotid pulse no bruit Respiratory: Clear to auscultation bilaterally, Normal air movement Cardiovascular: No edema, Normal pulses, Regular rate/rhythm, Normal S1 S2 Capillary refill: <2 Seconds Gastrointestinal: Normal bowel sounds, Soft and benign, Non-distended Musculoskeletal: No clubbing, No swelling Integumentary: No rashes, No breakdown Neurological: Normal speech, Normal strength at 5/5 x4 extr, Normal tone Lymphatics: No axilla or inguinal lymphadenopathy Assessment And Plan - Plan Acute cholecystitis: Per CT abd/pelvis. It shows gall stone in the neck of the gallbladder. Will continue iv zosyn and follow up blood cx. Pt is NPO for possible surgery. Anemia: Hgb is 6.1. MCV is 56. Likely due to iron def anemia. Will give iv iron and supplements. Will follow up iron studies. Will give 2 units of blood. Monitor H/H. Pt denies any melena or GI bleed. A. fib: Will continue telemetry and BB. Hold AC due to Anemia. Hypokalemia: K is 3.4. Will replete and monitor. GI ppx: protonix DVT ppx: SCD Dispo: Pending hospital course Discharge Plan: Home Plan to discharge in: 24 Hours - Code Status/Comfort Care Code Status Assessed: Yes Code Status: Full Code
[2023-11-22 13:54] LABS: Ferritin 1.6 ng/mL (8-388)
--- NOTE | 2023-11-22 15:11 | P.DS ---
Admission Date: 11/21/23 Discharge Date: 11/22/23 Disposition: ROUTINE DISCHARGE Discharge Condition: GOOD Reason for Admission: Abdominal pain Brief History of Present Illness: Patient is a very pleasant 43-year-old female with a history of atrial fibrillation and iron deficiency anemia who comes into the hospital with epigastric tenderness. Patient has been having this pain on and off for the last few months. It has gotten gradually worse. It is painful a few hours after she eats but the worst pain is normally at night. She has not had this pain up until a few months ago. She decided to come into the emergency room for further evaluation. In the emergency room her liver function test is normal. However her gallbladder ultrasound reveals some gallbladder wall thickening. At this time, she will be admitted to the hospital for IV fluids. Will keep her n.p.o. General surgery will be consulted. Will continue with IV antibiotic therapy. Patient states she had atrial fibrillation a few years ago. She took metoprolol for short-term but afterwards stopped. She is never been on anticoagulation. Patient is low risk for any cardiopulmonary complications. She is anemic and will work her anemia. Anticipate her being iron deficient. Will monitor her H&H closely. Hospital Course: Pt presents with abdominal pain due to acute cholecystitis. We admitted pt, kept her NPO and started iv zosyn. Gen surgery evaluated pt for possible surgical intervention. The Gen surgeon later decided to defer surgical intervention because pt tolerated oral intake. Pt's Hgb dropped to 6.1 with MCV of 56. We ordered iron studies. We gave ferric gluconate and ferrous sulfate. We also gave 2 units of blood. Pt was advised to be compliant with home meds. We also replaced potassium. Pt was in NAD prior to discharge. Vital Signs/Physical Exam: Temp Pulse Resp BP Pulse Ox 97.8 F 66 19 100/55 L 98 11/22/23 12:15 11/22/23 12:15 11/22/23 12:15 11/22/23 12:15 11/22/23 12:15 Laboratory Data at Discharge: WBC 4.90 thou/uL (4.3-10.9) 11/22/23 06:26 Hgb 6.1 g/dL (12.0-15.0) L D 11/22/23 06:26 Hct 20.9 % (36.0-45.0) L 11/22/23 06:26 Plt Count 380 thou/uL (152-406) 11/22/23 06:26 Sodium 140 mEq/L (136-145) 11/22/23 06:26 Potassium 3.4 mEq/L (3.5-5.1) L 11/22/23 06:26 BUN 5 mg/dL (7-18) L 11/22/23 06:26 Creatinine 0.65 mg/dL (0.55-1.02) 11/22/23 06:26 Glucose 94 mg/dL (74-106) 11/22/23 06:26 Total Bilirubin 0.5 mg/dL (0.2-1.0) 11/22/23 06:26 AST 6 U/L (15-37) L 11/22/23 06:26 ALT 12 U/L (13-56) L 11/22/23 06:26 Alkaline Phosphatase 68 U/L (45-117) 11/22/23 06:26 Lipase 38 U/L (13-75) 11/21/23 06:21 Home Medications: Ciprofloxacin HCl [Cipro] 500 mg PO DAILY 10 Days #10 tab 11/22/23 Ferrous Sulfate [Ferrous Sulfate*] 325 mg PO BID 30 Days #60 tab 11/22/23 metroNIDAZOLE [Flagyl] 500 mg PO Q8H 10 Days #30 tab 11/22/23 New Medications: Ciprofloxacin HCl [Cipro] 500 mg PO DAILY 10 Days #10 tab Ferrous Sulfate [Ferrous Sulfate*] 325 mg PO BID 30 Days #60 tab metroNIDAZOLE [Flagyl] 500 mg PO Q8H 10 Days #30 tab Physician Discharge Instructions: Continue ad isak activity. Take Cipro 500mg po daily, flagyl 500mg po TID and ferrous sulfate 325mg po BID. Follow up with PCP within 1 week. Diet: Regular Activity: Ad isak Followup: JUANCARLOS MALDONADO [Primary Care Provider] -
[2023-11-22] MEDS: ONDANSETRON 4 MG/2 ML VIAL IV PRN (16:41)
[2023-11-22 16:44] VITALS: BP 103/60; TEMP 98.3
[2023-11-22] MEDS ORDERED: SOD FERRIC GLUC COMPLX/SUCROSE 250 MG in NA CHLORIDE 0.9% 250 ML IV SCH (18:00)
[2023-11-22 18:39] LABS: Hematocrit 29.9 % (36.0-45.0)
[2023-11-22] MEDS ORDERED: FERROUS SULFATE 325 MG TAB PO SCH (21:00)
== END 2023-11-22 19:17 | disposition home or self-care (01) | DRG 446 ==
LOC: ER 05:56 → ERHOLD 10:51 → 4TH 11:28
PROVIDERS: ADMIT Hospitalist; ATTEND Hospitalist
DX: K81.0 Acute cholecystitis (principal); I48.91 Unspecified atrial fibrillation; E87.6 Hypokalemia; D50.9 Iron deficiency anemia, unspecified; Z98.51 Tubal ligation status; Z79.82 Long term (current) use of aspirin; Z79.899 Other long term (current) drug therapy
CPT/HCPCS: 36415; 36430; 74177; 76705; 80053; 81001; 81025; 82607; 82728; 82746; 83540; 83690; 84466; 85014; 85018; 85025; 86850; 86900; 86901; 86920; 96365; 99284; J2405; J2543; J2916; J7030; J7050; P9016; Q9967

== ENCOUNTER 2024-01-11 03:06 | Inpatient (IN) | payer OTHER ==
--- OUTSIDE RECORDS SUMMARY | 2024-01-11 03:10 | XMS REPORT | Continuity of Care Document ---
Author Name Unknown Address [address] [place] [address] [facility] thconnect Address [address] [place] [address] Care Team Providers Care Network Design Architect Name Role Phone Pcp, Patient Does Not Have A Primary Care Physic jazmine ARSENIO CEDEÑO Attending Clinician Unavailable MIKE YOUNGER II Attending Clinician Unavailab RHIANNON Rangel Attending Clinician Unavailable MAC, EKG- Attending Clinician Unavailable LAB39 Attending Clinician Unavailable MD LD Attending Clinician Unavailab le LAB90 Attending Clinician Unavailable GIOVANNA CUTLER Attending Clinician Unava ilable [email or web address] Attending Clinician Unavaila Yuliet Graves PA-C Attending Clinician [phone] Clive Kumar MD Attending Clinician [phone] Unknown, Attending Attending Clinician Unavailab CLIVE Coy Attending Clinician Unavailable Doctor Unassigned, [place] Attending Clinician U navailable Janis Avila Attending Clinician Shankar Rodriguez MD Attending Clinician [phone] SHANKAR RODRIGUEZ Attending Clinician Unavailable Lisa Ramírez MD Attending Clinician LISA RAMÍREZ Attending Clinician Unavailable RICK VAZ Attending Clinician Unavail able [email or web address]_S Admitting Clinician UnavailShankar Person MD Admitting Clinician SHANKAR RODRIGUEZ Admitting Clinician Unavailable LISA RAMÍREZ Admitting Clinician Unavailable Payers Payer Name Policy Type Policy Number Effective Date Expirati on Date Source [employer] MP [facility] [employer] [employer] 94 ON 9 [id number] 2023 00:00:00 [place] [facility] [id number] 2014 00:00:00 ICF [id number] 2014 00:00:00 [facility] [id number] 2014 00:00:00 Problems Condition Name Condition Details Condition Category Status Onset Date Resolution Date Last Treatment Date Treating Clinician Comments Source Anemia Anemia Disease Active 07-14 00:00: 00 [facility] Well woman exam Well woman exam Disease Active 01-28 00:00: 00 [facility] Contracept lisa management Contracept lisa management Disease Active 01-28 00:00: 00 [facility] Contracept lisa management Contracept lisa management Disease Active 01-28 00:00: 00 [facility] History of atrial fibrillati on History of atrial fibrillati on Disease Active 12-02 00:00: 00 [facility] Obesity (BMI 30-39.9) Obesity (BMI 30-39.9) Disease Active 12-02 00:00: 00 Overview: Formattin g of this note might be different from the original. ICD10 Diagnosis Term Ad Operations Intern Utility [facility] Tubal ligation status Tubal ligation status Disease Active 12-02 00:00: 00 [facility] Tubal ligation status Tubal ligation status Disease Active 12-02 00:00: 00 [facility] Allergies, Adverse Reactions, Alerts Allergy Name Allergy Type Status Severity Reaction(s) Onset Date Inactive Date Treating Clinician Comments Source NO KNOWN ALLERGIE S Drug Class Active [facility] Social History Social Habit Start Date Stop Date Quantity Comments Source Gender identity [facility] Sexual orientation Sandeep traylor Huong - External Alcohol intake 2023-11-28 00:00:00 2023-11-28 00:00:00 Current drinker of alcohol (finding) Pam Borja - External Tobacco use and exposure 2023-11-27 00:00:00 2023-11-27 00:00:00 Smokeless tobacco non-user Pam Borja - External History of Social function 2023-11-27 00:00:00 2023-11-27 00:00:00 Pam Borja - External Alcohol Comment 2023-11-27 00:00:00 2023-11-27 00:00:00 socially Pam Borja - External Exposure to SARS-CoV-2 (event) 2022-07-04 00:00:00 2022-07-14 11:03:00 Not sure [facility] Education 2022-07-14 00:00:00 2022-07-14 00:00:00 10 [facility] Sex Assigned At 1980 00:00:00 1980 00:00:00 Pam Borja - External Smoking Status Start Date Stop Date Source Never smoked tobacco Pam Borja - External Medications Ordered Medication Name Filled Medication Name Start Date Stop Date Current Medication? Ordering Clinician Indication Dosage Frequency Signature (SIG) Comments Components Source Ondansetron HCl 4 MG oral Tablet 11-28 00:00: 00 Yes [id number] 4mg [id number] 3D Take 1 tablet (4 mg total) by mouth every 8 hours as needed for nausea. Pam Borja - Externa l metroNIDAZO LE 500 mg tablet 06-01 00:00: 00 Yes [id number] 500mg Take 1 tablet by mouth every 12 (twelve) hours. [facility] Nitrofurant oin&Nit. Macrocryst 100 mg capsule 05-30 00:00: 00 06-05 04:59 :00 No [id number] 100mg Take 1 capsule by mouth in the morning and 1 capsule in the evening. Do all this for 5 days. [facility] Nitrofurant oin&Nit. Macrocryst 100 mg capsule 05-30 00:00: 00 06-05 04:59 :00 No [id number] 100mg Take 1 capsule by mouth in the morning and 1 capsule in the evening. Do all this for 5 days. [facility] Nitrofurant oin&Nit. Macrocryst 100 mg capsule 05-30 00:00: 00 06-05 04:59 :00 No [id number] 100mg Take 1 capsule by mouth in the morning and 1 capsule in the evening. Do all this for 5 days. [facility] fluconazole (DIFLUCAN) 150 mg tablet 05-30 00:00: 00 05-31 04:59 :00 No [id number] 150mg Take 1 tablet by mouth once now for 1 dose. [facility] fluconazole (DIFLUCAN) 150 mg tablet 05-30 00:00: 00 05-31 04:59 :00 No [id number] 150mg Take 1 tablet by mouth once now for 1 dose. [facility] metoprolol succinate XL (TOPROL XL) 25 mg 24 hr tablet 07-16 14:11: 09 Yes 25mg Take 25 mg by mouth daily. [facility] metoprolol succinate XL (TOPROL XL) 25 mg 24 hr tablet 07-16 14:11: 09 Yes 25mg Take 25 mg by mouth daily. [facility] metoprolol succinate XL (TOPROL XL) 25 mg 24 hr tablet 07-16 14:11: 09 Yes 25mg Take 25 mg by mouth daily. [facility] metoprolol succinate XL (TOPROL XL) 25 mg 24 hr tablet 07-16 14:11: 09 Yes 25mg Take 25 mg by mouth daily. [facility] metoprolol succinate XL (TOPROL XL) 25 mg 24 hr tablet 07-16 14:11: 09 Yes 25mg Take 25 mg by mouth daily. [facility] metoprolol succinate XL (TOPROL XL) 25 mg 24 hr tablet 07-16 14:11: 09 Yes 25mg Take 25 mg by mouth daily. [facility] ferrous fumarate-vi tamin C 200 mg (65 mg iron)-25 mg TbSR 07-16 00:00: 00 Yes [id number] 1{tbl} Take 1 tablet by mouth 2 (two) times daily with meals. [facility] vitamin B-12 250 mcg tablet 07-16 00:00: 00 Yes [id number] 250ug Take 1 tablet by mouth in the morning. [facility] ferrous fumarate-vi tamin C 200 mg (65 mg iron)-25 mg TbSR 07-16 00:00: 00 Yes [id number] 1{tbl} Take 1 tablet by mouth 2 (two) times daily with meals. [facility] vitamin B-12 250 mcg tablet 07-16 00:00: 00 Yes [id number] 250ug Take 1 tablet by mouth in the morning. [facility] ferrous fumarate-vi tamin C 200 mg (65 mg iron)-25 mg [facility] 07-16 00:00: 00 Yes [id number] 1{tbl} Take 1 tablet by mouth 2 (two) times daily with meals. [facility] vitamin B-12 250 mcg tablet 07-16 00:00: 00 Yes [id number] 250ug Take 1 tablet by mouth in the morning. [facility] ferrous fumarate-vi tamin C 200 mg (65 mg iron)-25 mg TbSR 07-16 00:00: 00 Yes [id number] 1{tbl} Take 1 tablet by mouth 2 (two) times daily with meals. [facility] vitamin B-12 250 mcg tablet 07-16 00:00: 00 Yes [id number] 250ug Take 1 tablet by mouth in the morning. [facility] ferrous fumarate-vi tamin C 200 mg (65 mg iron)-25 mg TbSR 07-16 00:00: 00 Yes [id number] 1{tbl} Take 1 tablet by mouth 2 (two) times daily with meals. [facility] vitamin B-12 250 mcg tablet 07-16 00:00: 00 Yes [id number] 250ug Take 1 tablet by mouth in the morning. [facility] ferrous fumarate-vi tamin C 200 mg (65 mg iron)-25 mg TbSR 07-16 00:00: 00 Yes [id number] 1{tbl} Take 1 tablet by mouth 2 (two) times daily with meals. [facility] vitamin B-12 250 mcg tablet 07-16 00:00: 00 Yes [id number] 250ug Take 1 tablet by mouth in the morning. [facility] cyclobenzap rine (FLEXERIL) tablet 5 mg 07-15 18:30: 00 Yes 5mg 5 mg, Oral, TID, First dose on 07/15/22 at 1330, Until Discontinu ed, Routine [facility] ketorolac (TORADOL) injection 15 mg 07-15 18:27: 36 Yes 15mg 15 mg, Slow IV Push, Q8HPRN, Starting on 07/15/22 at 1327, Until Discontinu ed, SRI, Pain (scale 4-6) [facility] vitamin B-12 (CYANOCOBAL SALINAS) tablet 1,000 mcg 07-15 14:00: 00 Yes 1000ug 1,000 mcg, Oral, DAILY, First dose on 07/15/22 at 0900, Until Discontinu ed, Routine [facility] metoprolol succinate XL (TOPROL XL) tablet 25 mg 07-15 14:00: 00 Yes 25mg 25 mg, Oral, DAILY, First dose on 07/15/22 at 0900, Until Discontinu ed, Routine [facility] proMETHazin e (PHENERGAN) 12.5 mg in NaCl 0.9% (NS) 50 mL IV piggyback 07-15 06:12: 01 Yes 12.5mg 12.5 mg, IV Piggyback, Q4HPRN, Starting on 07/15/22 at 0112, Until Discontinu ed, Routine, N/V unresponsi ve to Ondansetro n [facility] ondansetron (ZOFRAN (PF)) injection 4 mg 07-15 06:11: 49 Yes 4mg 4 mg, Slow IV Push, Q6HPRN, Starting on Sun07/15/22 at 0111, Until Discontinu ed, Routine, Nausea and Vomiting (N/V) [facility] ondansetron (ZOFRAN (PF)) injection 4 mg 07-15 02:15: 00 07-15 01:33 :00 No 4mg 4 mg, Slow IV Push, ONCE, On Sun07/14/22 at 2115, For 1 dose
Do ses of ondansetro n 16 mg and above need to be administer ed via IV piggyback. For Dose >=24mg ECG monitoring is advisable.
[facility] iron sucrose (VENOFER) 300 mg in NaCl 0.9% (NS) 250 mL infusion 07-15 00:30: 00 07-18 13:59 :00 No 300mg 300 mg, IV Infusion, DAILY, Administer over 1.5 Hours, First dose on Sun07/14/22 at 1930, For 4 doses [facility] NaCl 0.45% (1/2NS) IV infusion 1,000 mL 07-14 20:30: 00 Yes 1000mL at 125 mL/hr, 1,000 mL, IV Infusion, CONTINUOUS , Starting on Sun07/14/22 at 1530, Until Discontinu ed, Routine [facility] morpHINE (2 mg/mL) injection 2 mg 07-14 19:49: 30 07-15 19:48 :30 No 2mg 2 mg, Slow IV Push, Q4HPRN, Starting on Sun07/14/22 at 1449, Until Sun07/15/22 at 1448, Routine, Pain (scale 7-10) [facility] HYDROcodone -acetaminop hen (NORCO 5) 5-325 mg tablet 1 tablet 07-14 19:49: 27 07-15 18:22 :10 No 1{tbl} 1 tablet, Oral, Q6HPRN, Starting on Sun07/14/22 at 1449, Until Sun07/15/22 at 1322, Routine, Pain (scale 4-6) [facility] tamsulosin (FLOMAX) capsule 0.4 mg 07-14 19:30: 00 Yes .4mg 0.4 mg, Oral, DAILY, First dose on Sun07/14/22 at 1430, Until Discontinu ed, Routine [facility] acetaminoph en (TYLENOL) tablet 1,000 mg 07-14 19:30: 00 Yes 1000mg 1,000 mg, Oral, Q8H, First dose on Sun07/14/22 at 1430, Until Discontinu ed, Routine [facility] NaCl 0.9% (NS) bolus infusion 1,000 mL 07-14 17:30: 00 07-14 18:45 :00 No 1000mL at 999 mL/hr, 1,000 mL, IV Infusion, ONCE, 1 dose, On Sun07/14/22 at 1230, STAT [facility] ondansetron (ZOFRAN (PF)) injection 4 mg 07-14 17:30: 00 07-14 17:51 :00 No 4mg 4 mg, Slow IV Push, ONCE, 1 dose, On Sun07/14/22 at 1230, SRI [facility] ketorolac (TORADOL) injection 30 mg 07-14 17:30: 00 07-14 17:51 :00 No 30mg 30 mg, Slow IV Push, ONCE, 1 dose, On Sun07/14/22 at 1230, SRI [facility] metoprolol succinate XL (TOPROL XL) 25 mg 24 hr tablet 01-28 13:21: 31 Yes 25mg Take 25 mg by mouth daily. [facility] metoprolol succinate XL (TOPROL XL) 25 mg 24 hr tablet 01-28 13:21: 31 Yes 25mg Take 25 mg by mouth daily. [facility] Occult Blood (HEMATEST) Tab 01-07 00:00: 00 Yes Use as directed [facility] Occult Blood (HEMATEST) Tab 01-07 00:00: 00 Yes Use as directed [facility] Occult Blood (HEMATEST) Tab 01-07 00:00: 00 07-16 00:00 :00 No Use as directed [facility] ferrous sulfate 325 mg (65 mg iron) tablet 12-18 00:00: 00 Yes 325mg Take 1 Tab by mouth 3 (three) times daily with meals. [facility] ferrous sulfate 325 mg (65 mg iron) tablet 12-18 00:00: 00 Yes 325mg Take 1 Tab by mouth 3 (three) times daily with meals. [facility] ferrous sulfate 325 mg (65 mg iron) tablet 12-18 00:00: 00 07-16 00:00 :00 No 325mg Take 1 Tab by mouth 3 (three) times daily with meals. [facility] Immunizations Ordered Immunization Name Filled Immunization Name Date Status Comments Source TDAP 2014-12-02 00:00:00 Completed [facility] TDAP 2014-12-02 00:00:00 Completed [facility] TDAP 2014-12-02 00:00:00 Completed [facility] TDAP 2014-12-02 00:00:00 Completed [facility] TDAP 2014-12-02 00:00:00 Completed [facility] Tdap 2014-12-02 00:00:00 Completed [facility] TDAP 2014-12-02 00:00:00 Completed [facility] TDAP Unknown Completed [facility] Tdap- (Boostrix, Adacel) Unknown Completed Pam Borja - External Vital Signs Vital Name Observation Time Observation Value Comments S ource Systolic blood pressure 2023-11-28 17:28:00 126 mm[Hg] Pam padilla - External Diastolic blood pressure 2023-11-28 17:28:00 73 mm[Hg] Pam padilla - External Heart rate 2023-11-28 17:28:00 52 /min Buddy Borja - External Body temperature 2023-11-28 17:28:00 36.5 Sonam Pam Vieraybold - External Body height 2023-11-28 17:28:00 152.4 cm Deb yang Seybold - External Body weight 2023-11-28 17:28:00 73.483 kg Deb ey Seybold - External BMI 2023-11-28 17:28:00 31.64 kg/m2 Deb ey Seybold - External Systolic blood pressure 2023-05-30 19:26:00 102 mm[Hg] [facility] Diastolic blood pressure 2023-05-30 19:26:00 67 mm[Hg] [facility] Heart rate 2023-05-30 19:26:00 74 /min [facility] Body temperature 2023-05-30 19:26:00 36.67 Sonam [facility] Respiratory rate 2023-05-30 19:26:00 17 /min [facility] Body height 2023-05-30 19:26:00 152.4 cm [facility] Body weight 2023-05-30 19:26:00 81.738 kg [facility] BMI 2023-05-30 19:26:00 35.19 kg/m2 [facility] Oxygen saturation in Arterial blood by Pulse oximetry 2023-05-30 19:26:00 100 /min [facility] Systolic blood pressure 2022-07-16 16:37:00 107 mm[Hg] [facility] Diastolic blood pressure 2022-07-16 16:37:00 58 mm[Hg] [facility] Heart rate 2022-07-16 16:37:00 54 /min [facility] Body temperature 2022-07-16 16:37:00 36 Sonam [facility] Respiratory rate 2022-07-16 16:37:00 18 /min [facility] Oxygen saturation in Arterial blood by Pulse oximetry 2022-07-16 16:37:00 97 /min [facility] Body weight 2022-07-16 08:41:00 83.961 kg [facility] BMI 2022-07-16 08:41:00 36.15 kg/m2 [facility] Body height 2022-07-14 21:54:00 152.4 cm [facility] Systolic blood pressure 2021-04-01 05:21:00 111 mm[Hg] [facility] Diastolic blood pressure 2021-04-01 05:21:00 69 mm[Hg] [facility] Heart rate 2021-04-01 05:21:00 67 /min [facility] Respiratory rate 2021-04-01 05:21:00 21 /min [facility] Oxygen saturation in Arterial blood by Pulse oximetry 2021-04-01 05:21:00 98 /min [facility] Body temperature 2021-04-01 01:56:00 37.33 Sonam [facility] Body height 2021-04-01 01:56:00 149.9 cm [facility] Body weight 2021-04-01 01:56:00 83.915 kg [facility] BMI 2021-04-01 01:56:00 37.37 kg/m2 [facility] Procedures Procedure Date / Time Performed Performing Clinician Source POCT URINALYSIS 2023-05-30 19:52:00 [facility] ASSIGNMENT OF BENEFITS 2023-05-30 19:16:19 Docto r Unassigned, [place] [facility] PHOSPHORUS 2022-07-16 08:42:00 [facility]ank[facility] MAGNESIUM 2022-07-16 08:42:00 [facility]ank[facility] BASIC METABOLIC PANEL (NA, K, CL, CO2, GLUCOSE, BUN, CREATININE, CA) 2022-07-16 08:42:00 Shankar Rodriguez [facility] CBC WITH DIFF 2022-07-16 08:42:00 Shankar Rodriguez [facility] CBC WITHOUT DIFF 2022-07-15 17:11:00 [facility] 2022-07-15 12:37:03 Janis Damon [facility] BASIC METABOLIC PANEL (NA, K, CL, CO2, GLUCOSE, BUN, CREATININE, CA) 2022-07-15 07:53:00 Shankar Rodriguez [facility] CBC WITH DIFF 2022-07-15 07:53:00 Shankar Rodriguez [facility] HEMOGLOBIN 2022-07-15 01:23:00 Shankar Rodriguez [facility] TRANSFUSE PACKED RBC 2022-07-14 21:17:00 Yoselin Damon [facility] PREPARE PACKED RBC 2022-07-14 21:07:30 Janis Damon [facility] ABORH CONFIRMATION (LAB ONLY) 2022-07-14 19:30:00 Janis Damon [facility] VITAMIN B12, LEVEL 2022-07-14 19:29:00 Shankar Rodriguez [facility] FOLATE 2022-07-14 19:29[facility] 2022-07-14 18:55:00 Janis Damon [facility] COVID-19 (ID NOW RAPID TESTING) 2022-07-14 18:55:00 Janis Damon [facility] FERRITIN SERUM 2022-07-14 16:57:[address] [facility] TEST, SERUM 2022-07-14 16:57:00 Virginia Damon [facility] THYROID STIMULATING HORMONE 2022-07-14 16:57:00 Shankar Rodriguez [facility] COMP. METABOLIC PANEL ([id number]) 2022-07-14 16:57:00 Janis Damon [facility] IRON PANEL 2022-07-14 16:57:00 Shankar Rodriguez [facility] CBC WITH DIFF 2022-07-14 16:57:00 Janis Damon [facility] URINALYSIS 2022-07-14 16:57:00 [facility] D, 25-OH 2022-07-14 16:57:00 Shankar Rodriguez [facility] CT ABDOMEN PELVIS WO CONTRAST 2022-07-14 16:55:59 Janis Damon [facility] CONSENT/REFUSAL FOR DIAGNOSIS AND TREATMENT 2022-07-14 15:59:24 Doctor Unassigned, [place] [facility] XR CHEST 1 VW 2021-04-01 03:41:39 [facility] LIPASE 2021-04-01 03:19:00 Lisa Ramírez [facility] TROPONIN I 2021-04-01 03:19:00 Lisa Ramírez [facility] THYROID STIMULATING HORMONE 2021-04-01 03:19:00 Lisa Ramírez [facility] COMP. METABOLIC PANEL ([id number]) 2021-04-01 03:19:00 Lisa Ramírez [facility] CBC WITH DIFF 2021-04-01 03:19:00 [facility] D-DIMER 2021-04-01 03:19:00 Lisa Ramírez [facility] NOTICE OF PRIVACY PRACTICES 2021-04-01 01:44:44 Doctor Unassigned, [place] [facility] CONSENT/REFUSAL FOR DIAGNOSIS AND TREATMENT 2021-04-01 01:44:15 Doctor Unassigned, [place] [facility] OP CORRESPONDENCE 2019-06-03 05:01:00 Doctor Gabriella ssigned, [place] [facility] Encounters Start Date/Time End Date/Time Encounter Type Admission Type Attending [facility] Care Facility Care Department Encounter ID Source 2024-02-01 08:30:00 2024-02-01 08:30:00 Outpatient ARSENIO CEDEÑO [id number] Pam Borja 2024-01-28 08:45:00 2024-01-28 08:45:00 Outpatient MIKE YOUNGER II [id number] Pam Borja 2023-12-27 10:45:00 2023-12-27 10:45:00 Outpatient RHIANNON DENISE [id number] Pam Borja 2023-12-26 10:00:00 2023-12-26 10:00:00 Outpatient SULEMA CEDEÑOY PAM GARCIA [id number] Pam Seybgricelda 2023-12-17 12:56:00 2023-12-17 12:56:00 Outpatient RHIANNON DENISE [id number] Pam Seybgricelda 2023-12-07 09:40:00 2023-12-07 09:40:00 Outpatient PAM GARCIA [id number] Pam Seybgricelda 2023-12-07 09:35:00 2023-12-07 09:35:00 Outpatient PAM GARCIA [id number] Pam Seybgricelda 2023-12-07 00:00:00 2023-12-07 00:00:00 Outpatient RHIANNON DENISE [id number] Pam Seybgricelda 2023-12-07 00:00:00 2023-12-07 00:00:00 Outpatient RHIANNON DENISE [id number] Pam Seybold 2023-12-06 11:30:00 2023-12-06 11:30:00 Outpatient MAC, EKG- PAM GARCIA [id number] Pam Seybold 2023-12-06 11:00:00 2023-12-06 11:00:00 Outpatient LAB39 PAM GARCIA [id number] Pam Seybold 2023-12-06 09:45:00 2023-12-06 09:45:00 Outpatient RHIANNON DENISE [id number] Pam Seybold 2023-12-06 00:00:00 2023-12-06 00:00:00 Outpatient PAM GARCIA [id number] Pam Seybold 2023-11-30 00:00:00 2023-11-30 00:00:00 Outpatient MD PAM GANDARA [id number] Pam Seybold 2023-11-28 13:00:00 2023-11-28 13:00:00 Outpatient LAB90 PAM GARCIA [id number] Pam Seybold 2023-11-28 11:30:00 2023-11-28 11:30:00 Outpatient GIOVANNA CUTLER [id number] Pam Borja 2023-08-31 00:00:00 2023-08-31 00:00:00 Outpatient GC_GCBZW_Ka sue_S PRIV [facility] [id number] [facility] 2023-06-01 00:00:00 2023-06-01 00:00:00 Case Management Yuliet Rodriguez [facility] 1.84.114 [id number] [id number] [id number] [facility] 2023-05-30 14:20:00 2023-05-30 14:40:00 Urgent Care José Clive Adonis, Attending [facility] 1.114 350.1.13.10 [id number] [id number] [facility] 2023-05-30 14:20:00 2023-05-30 14:20:00 Outpatient R CLIVE KUMAR [facility] [id number] [facility] 2023-05-30 00:00:00 2023-05-30 00:00:00 Orders Only Doctor Unassigned, [place] [facility] 1..114 350.1.13.10 [id number] [id number] [facility] 2022-07-17 00:00:00 2022-07-17 00:00:00 Patient Secure Msg Doctor Unassigned, [place] [facility] 1..114 350.1.13.10 [id number] [id number] [facility] 2022-07-14 11:06:00 2022-07-16 13:28:00 Emergency Janis Damon Yaman [facility] 1.114 350.1.13.10 [id number] [id number] [facility] 2022-07-14 11:06:00 2022-07-16 13:28:00 Outpatient X SHANKAR RODRIGUEZ [facility] [id number] [facility] 2021-03-31 21:00:00 2021-04-01 00:24:00 Emergency Lisa Ramírez [facility] [id number] [id number] [id number] [id number] [facility] 2021-03-31 21:00:00 2021-04-01 00:24:00 Emergency X LISA RAMÍREZ [facility] [id number] [facility] 2021-02-14 08:15:00 2021-02-14 08:15:00 Outpatient R RICK VAZ [facility] [id number] [facility] 2019-06-03 00:00:00 2019-06-03 00:00:00 Orders Only Doctor Unassigned, [place] [facility] [id number] 350.1.13.10 4.2.7.2.686 [id number] 2019-06-03 00:00:00 2019-06-03 00:00:00 Orders Only Doctor Unassigned, [place] [facility] [id number] [id number] [id number] [id number] [facility] Results Test Description Test Time Test Comments Results Result Co mments Source [facility] SPECIFIC [id number] 19:53:00* Test Item Value Reference Range Interpretation [...] internal controls Lab Interpretation (test code = 91652-1) Abnormal [facility] (in units)2022-07-15 12:37:03* Test Item Value Reference Range Interpretation Comme nts Cross Match Result (test code = 4409) Compatible ISBT Blood Type Code (test code = 930649) Unit Blood Type (test code = 4410) O Pos Unit Number (test code = 4411) [id number] Blood Expiration Date & Time (test code = 410264) Status Information (test code = 4412) Issued Product Identification (test code = 4413) Red Blood Cells Product Code (test code = 4414) [id number] Performed at [facility] [place] [facility] Laboratory Services - [facility] Blood [address] [place] [address] Free: [phone] No. [id number] [facility] B12, [id number] 02:30:54* Test Item Value Reference Range Interpretation Comme nts VIT B12 (test code = 9166121852) 282 pg/mL 240-930 VERONICA (test code = VERONICA) Biotin has been reported to cause a positive bias, interpret results relative to patient's use of biotin. Lab Interpretation (test code = 80364-0) Normal [facility]2022-09-10 02:30:54* Test Item Value Reference Range Interpretation Comme nts FOLATE SER (test code = 5709932811) 5.8 ng/mL 3-20 Lab Interpretation (test cod e = 75595-4) Normal [facility] D, [id number] 02:11:14* Test Item Value Reference Range Interpretation Comme nts VIT D 25OH (test code = 89704-1) 38 ng/mL 25-80 VERONICA (test code = VERONICA) Deficiency: <20 ng/mLInsufficiency : 20-24 ng/mLOptimal: 25-80 ng/mL Lab Interpretation (test code = 49578-2) Normal [facility] HospitalPrepare Packed RBC (in units), 1 Units 2022-07-14 21:07:30* Test Item Value Reference Range Interpretation Comme nts Cross Match Result (test code = 4409) Compatible ISBT Blood Type Code (test code = 900661) Unit Blood Type (test code = 4410) O Pos Unit Number (test code = 4411) [id number] Blood Expiration Date & Time (test code = 882685) Status Information (test code = 4412) Issued Product Identification (test code = 4413) Red Blood Cells Product Code (test code = 4414) [id number] Performed at [facility] Blood [address] [place], [place] [address]Toll Free: [phone] No. [id number] [facility] HospitalFERRITIN [id number] 20:10:40* Test Item Value Reference Range Interpretation Comme nts FERRITIN (test code = 5619922205) 4.1 ng/mL 6-137 L VERONICA (test code = VERONICA) Biotin has been reported to cause a negative bias, interpret results relative to patient's use of biotin. Lab Interpretation (test code = 97912-1) Abnormal [facility] HospitalTHYROID STIMULATING [id number] 20:06:20 * Test Item Value Reference Range Interpretation Comme nts TSH (test code = 2897605430) See_Comment [Automated messa ge] The system which generated this result transmitted reference range: 0.45 - 4.70 mIU/L. The reference range was not used to interpret this result as normal/abnormal. Lab Interpretation (test code = 68740-5) Normal [facility] HospitalType and Screen - ONCE [id number] 19:45:29 * Test Item Value Reference Range Interpretation Comme nts ABO & RH (test code = 20) O Positive Performed at [facility] Blood [address] [place], [place] [address]Toll Free: [phone] No. [id number] IAT (test code = 1185) Negative Performed at [facility] Blood [address] [place] [id number] Free: [phone] No. [id number] [facility] HospitalABORH Confirmation (Lab Only)2022-07-14 19:44:46* Test Item Value Reference Range Interpretation Comme nts ABO & RH (test code = 20) O Positive Performed at [facility] - [facility] Blood [address] [id number] Free: [phone] No. [id number] [facility] HospitalIRON [id number] 19:42:16* Test Item Value Reference Range Interpretation Comme nts IRON (test code = 8822772763) 17 ug/dL 50-160 L TIBC (test code = 4595069019) 488 ug/dL 250-410 H % FE SAT (test code = 2572278452) 3 % 20-50 L Lab Interpretation (test cod e = 91502-3) Abnormal [facility] WITH [id number] 18:01:43* Test Item Value Reference Range Interpretation [...] g/dL 31.6-35.1 L RDW-SD (test code = 45362-3) 38.8 fL 39-49.9 L RDW-CV (test code = 788-0) 17.8 % 12-15.5 H PLT (test code = 777-3) See_Comment H [Automated messa ge] The system which generated this result transmitted reference range: 166 - 358 10*3/?L. The reference range was not used to interpret this result as normal/abnormal. MPV (test code = 86622-1) 8.6 fL 9.5-12.9 L NRBC/100 WBC (test code = 3992667485) See_Comment [Automated Seamless ssage] The system which generated this result transmitted reference range: 0.0 - 10.0 /100 WBCs. The reference range was not used to interpret this result as normal/abnormal. NRBC x10^3 (test code = 1581757508) See_Comment [Automated messa ge] The system which generated this result transmitted reference range: 10*3/?L. The reference range was not used to interpret this result as normal/abnormal. GRAN MAT (NEUT) % (test code = 770-8) 79.3 % IMM GRAN % (test code = 3546946597) 0.50 % LYMPH % (test code = 736-9) 13.4 % MONO % (test code = 5905-5) 6.0 % EOS % (test code = 713-8) 0.1 % BASO % (test code = 706-2) 0.7 % GRAN MAT x10^3(ANC) (test code = 2859821917) 6.04 10*3/uL 1.88-7.09 IMM GRAN x10^3 (test code = 0858686077) 0.04 10*3/uL 0-0.06 LYMPH x10^3 (test code = 731-0) 1.02 10*3/uL 1.32-3.29 L MONO x10^3 (test code = 742-7) 0.46 10*3/uL 0.33-0.92 EOS x10^3 (test code = 711-2) 0.03-0.39 L BASO x10^3 (test code = 704-7) 0.05 10*3/uL 0.01-0.07 ELLIPTO/OVAL (test code = 04921-2) 2+ See_Comment A [Automated messa ge] The system which generated this result transmitted reference range: (none). The reference range was not used to interpret this result as normal/abnormal. POLYCHROMASIA (test code = 67464-7) 2+ See_Comment [Automated messa ge] The system which generated this result transmitted reference range: 2+. The reference range was not used to interpret this result as normal/abnormal. TARGET CELLS (test code = 19840-1) 2+ See_Comment A [Automated messa ge] The system which generated this result transmitted reference range: (none). The reference range was not used to interpret this result as normal/abnormal. REACT LYMPHS (test code = 5621441584) Rare Lab Interpretation (test code = 86322-7) Abnormal [facility] HospitalPREGNANCY TEST, [id number] 17:56:33* Test Item Value Reference Range Interpretation Comme nts PREG SERUM (test code = 5215321339) Negative VERONICA (test code = VERONICA) Less than 10 IU/L. ?If low titer or ectopic is suspected, resubmit specimen in 48-72 hours. [facility]. METABOLIC PANEL (41821)2022-07-14 17:25:06* Test Item Value Reference Range Interpretation Comme nts NA (test code = 6736389684) 138 mmol/L 135-145 K (test code = 7067072647) 4.0 mmol/L 3.5-5 CL (test code = 7369894992) 106 mmol/L 98-108 CO2 TOTAL (test code = 6429941326) 24 mmol/L 23-31 AGAP (test code = 3942723860) 2-16 BUN (test code = 8804083779) 9 mg/dL 7-23 GLUCOSE (test code = 7695575942) 106 mg/dL 70-110 CREATININE (test code = 7662193881) 0.86 mg/dL 0.5-1.04 TOTAL BILI (test code = 2943787027) 0.5 mg/dL 0.1-1.1 CALCIUM (test code = 1439156130) 9.8 mg/dL 8.6-10.6 T PROTEIN (test code = 4483542454) 7.1 g/dL 6.3-8.2 ALBUMIN (test code = 6712025159) 4.3 g/dL 3.5-5 ALK PHOS (test code = 6318890428) 79 U/L 34-122 ALTv (test code = 1742-6) 14 U/L 5-35 AST(SGOT) (test code = 9862402080) 17 U/L 13-40 eGFR (test code = 7341028897) mL/min/1.73m2 VERONICA (test code = VERONICA) Association [...] or urine or abnormalities in imaging tests). [facility] HospitalXR CHEST 1 [id number] 04:28:11No evidence of acute cardiopulmonary disease. Preliminary [...] reviewed this study and agree with the abovereport.[facility] HospitalTHYROID STIMULATING [id number] 04:22:07* Test Item Value Reference Range Interpretation Comme nts TSH (test code = 0196493791) See_Comment [Automated messa ge] The system which generated this result transmitted reference range: 0.45 - 4.70 mIU/L. The reference range was not used to interpret this result as normal/abnormal. Lab Interpretation (test code = 27361-3) Normal [facility] HospitalTROPONIN [id number] 04:03:26* Test Item Value Reference Range Interpretation Comme nts TROPONIN I (test code = 4165766502) 0.000 ng/mL See_Comment [Automated message] The system [...] biotin. ? Lab Interpretation (test code = 21618-8) Normal [facility] HospitalD-[id number] 03:53:09* Test Item Value Reference Range Interpretation Comments D-DIMER (test code = 9232190927) See_Comment [Automated message] The system which generated [...] a diagnosis. Lab Interpretation (test code = 97217-0) Normal [facility] HospitalCOMP. METABOLIC PANEL (16260)2021-04-01 03:50:08* Test Item Value Reference Range Interpretation Comme nts NA (test code = 8248675266) 139 mmol/L 135-145 K (test code = 8232439789) 3.3 mmol/L 3.5-5.0 L CL (test code = 0109468895) 106 mmol/L 98-108 CO2 TOTAL (test code = 1828756882) 24 mmol/L 23-31 AGAP (test code = 0245820793) 2-16 BUN (test code = 1154936521) 8 mg/dL 7-23 GLUCOSE (test code = 3936013113) 101 mg/dL 70-110 CREATININE (test code = 1272087255) 0.64 mg/dL 0.50-1.04 TOTAL BILI (test code = 6911648720) 0.4 mg/dL 0.1-1.1 CALCIUM (test code = 1143373777) 10.9 mg/dL 8.6-10.6 H T PROTEIN (test code = 5060377467) 8.0 g/dL 6.3-8.2 ALBUMIN (test code = 6373654797) 4.3 g/dL 3.5-5.0 ALK PHOS (test code = 5313105004) 85 U/L 34-122 ALTv (test code = 1742-6) 16 U/L 5-35 AST(SGOT) (test code = 4135867706) 25 U/L 13-40 eGFR (test code = 1389504449) mL/min/1.73m2 VERONICA (test code = VERONICA) Association [...] imaging tests). Lab Interpretation (test code = 60645-2) Abnormal [facility] HospitalLIPASE2021-05-28 03:49:48* Test Item Value Reference Range Interpretation Comme nts LIPASE (test code = 2866292083) 143 U/L 0-220 Lab Interpretation (test cod e = 58121-4) Normal [facility] HospitalCB WITH [id number] 03:41:26* Test Item Value Reference Range Interpretation [...] g/dL 31.6-35.1 L RDW-SD (test code = 25056-6) 62.9 fL 39.0-49.9 H RDW-CV (test code = 788-0) 26.5 % 12.0-15.5 H PLT (test code = 777-3) See_Comment H [Automated messa ge] The system which generated this result transmitted reference range: 166 - 358 10*3/?L. The reference range was not used to interpret this result as normal/abnormal. MPV (test code = 55431-4) 9.0 fL 9.5-12.9 L NRBC/100 WBC (test code = 1302498637) See_Comment [Automated me ssage] The system which generated this result transmitted reference range: 0.0 - 10.0 /100 WBCs. The reference range was not used to interpret this result as normal/abnormal. NRBC x10^3 (test code = 5582591216) <0.01 See_Comment [Automated messa ge] The system which generated this result transmitted reference range: 10*3/?L. The reference range was not used to interpret this result as normal/abnormal. GRAN MAT (NEUT) % (test code = 770-8) 58.3 % IMM GRAN % (test code = 6395692573) 0.20 % LYMPH % (test code = 736-9) 31.5 % MONO % (test code = 5905-5) 8.7 % EOS % (test code = 713-8) 0.6 % BASO % (test code = 706-2) 0.7 % GRAN MAT x10^3(ANC) (test code = 0767736932) 5.20 10*3/uL 1.88-7.09 IMM GRAN x10^3 (test code = 9456178808) <0.03 0.00-0.06 LYMPH x10^3 (test code = 731-0) 2.80 10*3/uL 1.32-3.29 MONO x10^3 (test code = 742-7) 0.77 10*3/uL 0.33-0.92 EOS x10^3 (test code = 711-2) 0.05 10*3/uL 0.03-0.39 BASO x10^3 (test code = 704-7) 0.06 10*3/uL 0.01-0.07 Lab Interpretation (test code = 57759-3) Abnormal [facility]
[2024-01-11] MEDS ORDERED: ONDANSETRON 4 MG/2 ML VIAL ONE ×2 (03:26→12:28)
[2024-01-11] MEDS ORDERED: MORPHINE 4 MG/ML SYR ONE (03:27)
[2024-01-11] MEDS ORDERED: KETOROLAC 30 MG/ML INJ ONE ×2 (03:27→12:28)
[2024-01-11] MEDS ORDERED: NA CHLORIDE 0.9% 1,000 ML ONE (03:28)
[2024-01-11 03:43] LABS: Absolute Basophils 0.1 K/uL (0-0.5); Absolute Lymphocytes (CBC) 2.6 K/uL (0.7-4.9); Basophils % 1.4 % (0-1.3); Eosinophils % 0.6 % (0-4.4); Hematocrit 36.1 % (36.0-45.0); Lymphocytes % 39.6 % (15.3-44.8); MCV 81.1 fL (80-100); MPV 6.5 fL (7.6-11.3); Platelets 345 thou/uL (152-406); RBC Red Blood Cell Count 4.46 M/uL (3.86-4.86)
[2024-01-11 03:59] LABS: Albumin 3.4 g/dL (3.4-5.0); Albumin/Globulin Ratio 0.9 (1.1-1.8); Anion Gap 7.5 mEq/L (5.0-15.0); Bilirubin Total 0.3 mg/dL (0.2-1.0); Globulin 3.9 g/dL (2.3-3.5); Potassium 3.5 mEq/L (3.5-5.1); Protein, Total 7.3 g/dL (6.4-8.2)
[2024-01-11 04:29] LABS: Specific Gravity 1.005 (1.005-1.030); Urine Bilirubin NEGATIVE (Negative); Urine Blood Negative (Negative); Urine Clarity Clear (Clear); Urine Color Colorless (Yellow); Urine Glucose NEGATIVE (Negative); Urine Protein NEGATIVE (Negative); Urine Urobilinogen Normal (Normal)
[2024-01-11 05:09] LABS: Anisocytosis 3+; Blood Morphology Comment NOTED (NOT SEEN); Hypochromasia 1+; Macrocytosis 1+; Platelet Estimate ADEQ; White Blood Cell Scan OK (OK)
[2024-01-11] MEDS ORDERED: PIPERACIL/TAZO 3.375 GM VIAL IV ONE (05:43)
[2024-01-11] MEDS ORDERED: NA CHLORIDE 0.9% 100 ML ONE (05:43)
[2024-01-11] MEDS ORDERED: D5 0.45 NS 1,000 ML IV ONE (05:43)
--- NOTE | 2024-01-11 06:05 | EDPHYS ---
Physician Documentation [facility] Name: Rosmery Treadwell Age: 43 yrs Sex: Female : 1980 Arrival Date: 01/11/2024 Time: 03:06 Bed 6 Private MD: ED Physician Arun Melissa HPI: 01/10 03:15 This 43 yrs old Black Female presents to ER via Unassigned with complaints of Abdominal sp4 Pain, pt is alot of pain, states it from gallbladder issue. 03:[address] report - 11/21/2023 IMPRESSION: Gallbladder wall is mildly thickened and sp4 hyperenhancing, please correlate clinically for acute cholecystitis. A 1.8 cm cholesterol containing gallstone is seen near the gallbladder neck. . US report 11/21/2023 - IMPRESSION: Wall thickening with some wall edema and trace pericholecystic fluid. Echogenic foci with comet tail artifact along the gallbladder wall. Findings may relate to adenomyomatosis, however given the degree of edema, acute cholecystitis is not entirely excluded. Please correlate clinically for presence of focal tenderness. Large gallstone near the neck. . 05:24 43-year-old female past medical history of cholelithiasis and cholecystitis presents sp4 with acute onset epigastric abdominal pain associated with vomiting similar to prior cholecystitis. Pain started 3 hours prior to arrival.. 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 - Social history:: Smoking status: Patient denies any tobacco usage or history of. - Family history:: not pertinent. ROS: 05:24 Constitutional: Negative for fever, chills, and weight loss, Abdomen/GI: Positive for sp4 upper abdominal pain , positive for nausea as well 05:24 All other systems are negative, Exam: 05:24 Constitutional: This is a well developed, well nourished patient who is awake, alert, sp4 and in no acute distress. Head/Face: Normocephalic, atraumatic. Eyes: Pupils equal round and reactive to light, extra-ocular motions intact. Lids and lashes normal. Conjunctiva and sclera are not injected. Cornea within normal limits. Periorbital areas with no swelling, redness, or edema. ENT: Nares patent. No nasal discharge, no septal abnormalities noted. Tympanic membranes are normal and external auditory canals are clear. Oropharynx with no redness, swelling, or masses, exudates, or evidence of obstruction, uvula midline. Mucous membranes moist. Neck: Trachea midline, no thyromegaly or masses palpated, and no cervical lymphadenopathy. Supple, full range of motion without nuchal rigidity, or vertebral point tenderness. Chest/axilla: Normal chest wall appearance and motion. Nontender with no deformity. No lesions are appreciated. Cardiovascular: Regular rate and rhythm with a normal S1 and S2. No gallops, murmurs, or rubs. Normal PMI, no JVD. No pulse deficits. Respiratory: Lungs have equal breath sounds bilaterally, clear to auscultation and percussion. No rales, rhonchi or wheezes noted. No increased work of breathing, no retractions or nasal flaring. Abdomen/GI: Soft, with normal bowel sounds. No distension or tympany. No guarding or rebound. Positive upper abdominal tenderness Back: No spinal tenderness. No costovertebral tenderness. Skin: Warm, dry with normal turgor. Normal color with no rashes, no lesions, and no evidence of cellulitis. MS/ Extremity: Pulses equal, no cyanosis. Neurovascular intact. Full, normal range of motion. Neuro: Awake and alert, GCS 15, oriented to person, place, time, and situation. Cranial nerves II-XII grossly intact. Motor strength 5/5 in all extremities. Sensory grossly intact. Psych: Awake, alert, with orientation to person, place and time. Behavior, mood, and affect are within normal limits Vital Signs: 03:24 BP 133 / 81; Pulse 95; Resp 18; Temp 97.9(O); Pulse Ox 100% on R/A; Weight 73.48 kg cm10 (R); Height 5 ft. 0 in. (R); Pain 7/10; 04:30 BP 127 / 84; Pulse 60; Resp 17; Pulse Ox 100% ; jj7 05:30 BP 115 / 74; Pulse 65; Resp 16; Pulse Ox 100% ; jj7 06:30 BP 140 / 67; Pulse 55; Resp 17; Pulse Ox 100% ; Pain 0/10; jj7 03:24 Body Mass Index 31.64 (73.48 kg, 152.4 cm) cm10 03:24 Pain Scale: Adult cm10 06:30 Pain Scale: Adult jj7 MDM: 03:21 Patient medically screened. sp4 05:19 ED course: COMPARISON: January 11, 2024 right upper quadrant ultrasound. November 21, [address] abdomen and pelvis. FINDINGS: Artifacts: Scanner detector artifact noted. Lung bases: Unremarkable. No mass. No consolidation. ABDOMEN: Liver: Unremarkable. No mass. Gallbladder and bile ducts: Unremarkable. No calcified stones. No ductal dilation. Pancreas: No findings to suggest acute pancreatitis. No mass visualized. No ductal dilation. Spleen: Unremarkable. No splenomegaly. Adrenals: Unremarkable. No mass. Kidneys and ureters: Unremarkable. No solid mass. No hydronephrosis. Stomach and bowel: No bowel dilatation or obstruction. No bowel wall thickening. No gastric wall thickening visualized. Fluid in the gastric lumen. PELVIS: Appendix: The visualized appendix is normal. No pericecal inflammation to suggest acute appendicitis. Bladder: Unremarkable. No mass. Reproductive: 5.5 cm anterior subserosal uterine fibroid. Left ovarian follicles, the largest measuring 1.5 cm. Right ovarian corpus luteum has resolved when compared with the prior exam. ABDOMEN and PELVIS: Intraperitoneal space: Unremarkable. No free air. No significant fluid collection. Bones/joints: No acute fracture. No dislocation. Soft tissues: Unremarkable. Vasculature: Unremarkable. No abdominal aortic aneurysm. Lymph nodes: No pathologically enlarged lymph nodes. IMPRESSION: 1. Cholelithiasis mild gallbladder wall thickening suggesting cholecystitis, similar to the previous CT. See right upper quadrant ultrasound report. 2. 5.5 cm anterior subserosal uterine fibroid. 3. Left ovarian follicles, the largest measuring 1.5 cm. No follow-up imaging recommended. . ED course: Limited sonographic imaging of the right upper quadrant was performed on 01/11/2024 at 3:35 AM. Comparison: CT abdomen and pelvis report from 11/21/2023 and abdomen ultrasound report from 11/21/2023. The images were not available for review. FINDINGS: The gallbladder is well distended. There is an approximately 1.8 cm shadowing intraluminal echo in the neck of the gallbladder consistent with a gallstone. There are additional echogenic foci within the gallbladder fundus demonstrating comet tail artifact which may be due to hyperplastic cholecystoses (adenomyomatosis and/or cholesterolosis). The gallbladder wall measures approximately 3 mm in diameter which is at the upper limits of normal. The common bile duct measures 5 mm in diameter. There is no evidence of biliary ductal dilatation. Trace pericholecystic fluid was noted by the technologist but not definitely confirmed on the images obtained. IMPRESSION: 1. Large gallstone near the neck of the gallbladder measuring approximately 1.8 cm in greatest dimension. 2. There are additional echogenic foci within the gallbladder fundus demonstrating comet tail artifact which may be due to hyperplastic cholecystoses (adenomyomatosis and/or cholesterolosis). 3. Borderline gallbladder wall thickening. 4. Trace pericholecystic fluid was noted by the technologist but not definitely confirmed on the images obtained. 5. Overall, findings are similar when compared to the prior study. 06:04 Differential Diagnosis altered mental status, sepsis, flu, Cholecystitis . Data sp4 reviewed: vital signs, nurses notes, lab test result(s), radiologic studies, CT scan, ultrasound. Consideration of Admission/Observation Patient was admitted/placed on observation. Escalation of care including admission/observation considered. Management of patient was discussed with the following: Hospitalist: Dorina MORE . Healthcare Facility Administrator: Milagros MORE . ED course: Stable for admission . 01/10 03:16 Order name: CBC with Diff; Complete Time: 05:20 sp4 01/10 03:16 Order name: CMP; Complete Time: 05:20 sp4 01/10 03:16 Order name: Lipase; Complete Time: 05:20 sp4 01/10 03:16 Order name: Test, Urine; Complete Time: 05:20 sp4 01/10 03:16 Order name: Urinalysis w/ reflexes; Complete Time: 05:20 sp4 01/10 03:55 Order name: CBC Smear Scan; Complete Time: 05:20 EDMS 01/10 07:21 Order name: Basic Metabolic Panel EDMS 01/10 07:21 Order name: Basic Metabolic Panel EDMS 01/10 07:21 Order name: CBC with Automated Diff EDMS 01/10 07:21 Order name: CBC with Automated Diff EDMS 01/10 07:21 Order name: Magnesium EDMS 01/10 07:21 Order name: Magnesium EDMS 01/10 07:21 Order name: Phosphorus EDMS 01/10 07:21 Order name: Phosphorus EDMS 01/10 03:16 Order name: CT Abd/Pelvis - IV Contrast Only sp4 01/10 03:20 Order name: US Abdomen Limited sp4 01/10 07:21 Order name: CONS Physician Consult EDMS 01/10 03:16 Order name: IV Saline Lock; Complete Time: 03:34 sp4 01/10 03:16 Order name: Labs collected and sent; Complete Time: 03:34 sp4 01/10 05:32 Order name: NPO; Complete Time: 05:41 sp4 Administered Medications: 03:34 Drug: NS 0.9% IV 1000 ml IV at 1 bolus Per protocol; 1000 mL bolus Route: IV; Rate: 1 jj7 bolus; Site: left antecubital; 05:53 Follow up: Response: No adverse reaction; IV Status: Completed infusion; IV Intake: cm10 1000ml 03:35 Drug: TORadol - Ketorolac IVP 30 mg IVP once Route: IVP; Site: left antecubital; jj7 05:53 Follow up: Response: No adverse reaction cm10 03:35 Drug: Ondansetron IVP 4 mg IVP once; over 2 minutes Route: IVP; Site: left antecubital; jj7 05:53 Follow up: Response: No adverse reaction cm10 03:35 Drug: morphine IVP or IV 4 mg IVP once over 4 mins Route: IVP; Infused Over: 4 mins; jj7 Site: left antecubital; 05:53 Follow up: Response: No adverse reaction cm10 05:52 Drug: Piperacillin-Tazobactam IVPB 3.375 grams IVPB once over 60 mins; (mix in NS 100 cm10 mL) Route: IVPB; Infused Over: 60 mins; Site: left antecubital; 06:23 Follow up: Response: No adverse reaction; IV Status: Completed infusion; IV Intake: cm10 100ml 06:23 Drug: D5-NS IV 1000 ml IV at 125 ml/hr continuous Route: IV; Rate: 125 ml/hr; Site: cm10 left antecubital; 16:19 Follow up: IV Status: Infusion continued upon admission; IV Intake: 500ml kb3 Disposition Summary: 03/08/24 06:04 Hospitalization Ordered Notes: Hospitalization Status: Inpatient Admission sp4 Provider: Navarro Cam sp4 Condition: Stable sp4 Problem: new sp4 Symptoms: have improved sp4 Bed/Room Type: Standard sp4 Location: [facility] ER HOLD(01/11/24 06:49) cm10 Room Assignment: ERHOLD-(01/11/24 06:49) cm10 Diagnosis - Acute cholecystitis sp4 Forms: - Medication Reconciliation Form sp4 - SBAR form sp4 - Leadership Thank You Letter sp4 Signatures: Dispatcher [employer] Corazon Dan RN RN jj7 Arun Melissa MD MD sp4 Kimberli Norton RN RN cm10 Louisa Ray RN kb3 Corrections: (The following items were deleted from the chart) 06:49 06:04 Telemetry/MedSurg (Inpatient) sp4 cm10 06:49 06:04 sp4 cm10
--- NOTE | 2024-01-11 06:05 | ER ---
Nurse's Notes [facility] Name: Rosmery Treadwell Age: 43 yrs Sex: Female : 1980 Arrival Date: 01/11/2024 Time: 03:06 Bed 6 Private MD: Diagnosis: Acute cholecystitis Presentation: 01/10 03:24 Chief complaint: Patient states: Epigastric pain that woke her up from her sleep onset cm10 3 hours ago. pt states that the pain radiates to her back. Pt reports nausea, denies fever and vomiting. Pt states having similar pain before. Coronavirus screen: Client denies travel out of the [place] in the last 14 days. At this time, the client does not indicate any symptoms associated with coronavirus-19. Ebola Screen: Patient denies travel to an Ebola-affected area in the 21 days before illness onset. No symptoms or risks identified at this time. Initial Sepsis Screen: Does the patient meet any 2 criteria? HR > 90 bpm. Does the patient have a suspected source of infection? No. Patient's initial sepsis screen is negative. Risk Assessment: Do you want to hurt yourself or someone else? Patient reports no desire to harm self or others. Onset of symptoms was January 11, 2024. 03:24 Method Of Arrival: Ambulatory cm10 03:24 Acuity: SLIM 3 cm10 Triage Assessment: 03:27 General: Appears in no apparent distress. uncomfortable, Behavior is calm, cooperative. cm10 Pain: Complains of pain in epigastric area Pain radiates to back Pain currently is 7. out of 10 on a pain scale. Pain began suddenly, 3 hours ago. Also complains of nausea. Neuro: No deficits noted. Level of Consciousness is awake, alert, obeys commands, Oriented to person, place, time, situation. Cardiovascular: No deficits noted. Capillary refill < 3 seconds Patient's skin is warm and dry. Respiratory: No deficits noted. Airway is patent Respiratory effort is even, unlabored, Respiratory pattern is regular, symmetrical. 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 - Social history:: Smoking status: Patient denies any tobacco usage or history of. - Family history:: not pertinent. Screenin:30 [facility] ED Fall Risk Assessment (Adult) History of falling in the last 3 months, jj7 including since admission No falls in past 3 months (0 pts) Confusion or Disorientation No (0 pts) Intoxicated or Sedated No (0 pts) Impaired Gait No (0 pts) Mobility Assist Device Used No (0 pt) Altered Elimination No (0 pt) Score/Fall Risk Level 0 - 2 = Low Risk Oriented to surroundings, Maintained a safe environment, Educated pt \T\ family on fall prevention, incl call for assistance when getting out of bed. Abuse screen: Denies threats or abuse. Abuse screen: Denies threats or abuse. Nutritional screening: No deficits noted. Tuberculosis screening: No symptoms or risk factors identified. Assessment: 03:30 General: Appears in no apparent distress. comfortable, Behavior is calm, cooperative, jj7 appropriate for age. Pain: Complains of pain in epigastric area and posterior aspect of left lateral abdomen. GI: Bowel sounds present X 4 quads. Abd is soft X 4 quads Abdomen is tender to palpation in epigastric area Reports nausea. Vital Signs: 03:24 BP 133 / 81; Pulse 95; Resp 18; Temp 97.9(O); Pulse Ox 100% on R/A; Weight 73.48 kg cm10 (R); Height 5 ft. 0 in. (R); Pain 7/10; 04:30 BP 127 / 84; Pulse 60; Resp 17; Pulse Ox 100% ; jj7 05:30 BP 115 / 74; Pulse 65; Resp 16; Pulse Ox 100% ; jj7 06:30 BP 140 / 67; Pulse 55; Resp 17; Pulse Ox 100% ; Pain 0/10; jj7 03:24 Body Mass Index 31.64 (73.48 kg, 152.4 cm) cm10 03:24 Pain Scale: Adult cm10 06:30 Pain Scale: Adult jj7 ED Course: 03:11 Patient arrived in ED. gm2 03:15 Arun Melissa MD is Attending Physician. sp4 03:26 Triage completed. cm10 03:26 Arm band placed on Patient placed in an exam room, on a stretcher, on pulse oximetry. cm10 03:30 Patient has correct armband on for positive identification. Bed in low position. Call jj7 light in reach. Client placed on continuous cardiac and pulse oximetry monitoring. NIBP monitoring applied. Warm blanket given. 03:33 Inserted saline lock: 22 gauge in left antecubital area, using aseptic technique. Blood oe collected. 03:34 CBC with Diff Sent. oe 03:34 CMP Sent. oe 03:34 Lipase Sent. oe 03:49 US Abdomen Limited In Process Unspecified. EDMS 04:20 Urinalysis w/ reflexes Sent. oe 04:20 Test, Urine Sent. oe 04:36 CT Abd/Pelvis - IV Contrast Only In Process Unspecified. EDMS 06:02 Navarro Cam is Hospitalizing Provider. sp4 08:00 No provider procedures requiring assistance completed. Patient admitted, IV remains in ph place. 10:06 Ashley Sam RN is Primary Nurse. mb9 10:07 Report received from LUPE Cherry. mb9 Administered Medications: 03:34 Drug: NS 0.9% IV 1000 ml IV at 1 bolus Per protocol; 1000 mL bolus Route: IV; Rate: 1 jj7 bolus; Site: left antecubital; 05:53 Follow up: Response: No adverse reaction; IV Status: Completed infusion; IV Intake: cm10 1000ml 03:35 Drug: TORadol - Ketorolac IVP 30 mg IVP once Route: IVP; Site: left antecubital; jj7 05:53 Follow up: Response: No adverse reaction cm10 03:35 Drug: Ondansetron IVP 4 mg IVP once; over 2 minutes Route: IVP; Site: left antecubital; jj7 05:53 Follow up: Response: No adverse reaction cm10 03:35 Drug: morphine IVP or IV 4 mg IVP once over 4 mins Route: IVP; Infused Over: 4 mins; jj7 Site: left antecubital; 05:53 Follow up: Response: No adverse reaction cm10 05:52 Drug: Piperacillin-Tazobactam IVPB 3.375 grams IVPB once over 60 mins; (mix in NS 100 cm10 mL) Route: IVPB; Infused Over: 60 mins; Site: left antecubital; 06:23 Follow up: Response: No adverse reaction; IV Status: Completed infusion; IV Intake: cm10 100ml 06:23 Drug: D5-NS IV 1000 ml IV at 125 ml/hr continuous Route: IV; Rate: 125 ml/hr; Site: cm10 left antecubital; 16:19 Follow up: IV Status: Infusion continued upon admission; IV Intake: 500ml kb3 Medication: 03:30 VIS not applicable for this client. jj7 Intake: 05:53 IV: 1000ml; Total: 1000ml. cm10 06:23 IV: 100ml; Total: 1100ml. cm10 16:19 IV: 500ml; Total: 1600ml. kb3 Outcome: 06:04 Decision to Hospitalize by Provider. sp4 08:00 Admitted to ER Hold. Please see [employer] for further documentation. ph 08:00 Condition: good 08:00 Instructed on the need for admit, 11:18 Patient left the ED. ph 11:18 Admitted to OR accompanied by nurse, via stretcher, kb3 Signatures: Dispatcher [employer] EDNayely Zurita, RN RN Almas Douglas Kelly, RN RN kb3 Corazon Jean-Baptiste RN RN jj7 Flaco, Ashley Ortega RN RN mb9 Arun Melissa MD MD sp4 Kimberli Norton RN RN cm10 Anjali Olvera 2
--- NOTE | 2024-01-11 06:59 | P.HP ---
Certification for Inpatient Patient admitted to: Inpatient With expected LOS: >2 Midnights Patient will require the following post-hospital care: None Practitioner: I am a practitioner with admitting privileges, knowledge of patient current condition, hospital course, and medical plan of care. Services: Services provided to patient in accordance with Admission requirements found in Title 42 Section 412.3 of the Code of Federal Regulations Patient History Date of Service: 01/11/24 Reason for admission: Acute Cholecystitis History of Present Illness: Rosmery Treadwell is a 44-year-old female with past medical history of symptomatic anemia who presents to the ED with complaints of epigastric pain associated with nausea which started 3 hours prior to arrival to the ED. She presented to the ED in November 2023 with similar symptoms, at that time was told she had cholecystitis. 11/21/2023 CT report reads gallbladder wall is mildly thickened and hyperenhancing, 1.8 cm cholesterol containing gallstone is seen near the gallbladder neck. Ultrasound report 11/21/2023 reads wall thickening with some wall edema and trace pericholecystic fluid. Findings may relate to adenomyomatosis however given the degree of edema, acute cholecystitis is not entirely excluded. During that November admission, Dr. Sams was consulted for possible surgery but was determined that she could be an outpatient cholecystectomy d/t the anemia and was discharged. Of note, atrial fibrillation was tachycardia d/t symptomatic anemia, she reports being seen by a principal architect and was cleared of atrial fibrillation. She takes daily iron for her anemia and how has stable H/H. Initial vitals BP 133 / 81; Pulse 95; Resp 18; Temp 97.9(O); Pulse Ox 100% on R/A Laboratory evaluation UA negative, urine negative, H&H 12/36, platelets 345, otherwise unremarkable CT abdomen pelvis reports "IMPRESSION: 1. Cholelithiasis mild gallbladder wall thickening suggesting cholecystitis, similar to the previous CT. See right upper quadrant ultrasound report. 2. 5.5 cm anterior subserosal uterine fibroid. 3. Left ovarian follicles, the largest measuring 1.5 cm. No follow-up imaging recommended." Ultrasound abdomen reports " 1. Large gallstone near the neck of the gallbladder measuring approximately 1.8 cm in greatest dimension. 2. There are additional echogenic foci within the gallbladder fundus demonstrating comet tail artifact which may be due to hyperplastic cholecystoses (adenomyomatosis and/or cholesterolosis). 3. Borderline gallbladder wall thickening. 4. Trace pericholecystic fluid was noted by the technologist but not definitely confirmed on the images obtained. 5. Overall, findings are similar when compared to the prior study." Rosmery will be admitted to hospitalist service for further evaluation and treatment of acute cholecystitis, Dr. Linares was consulted. Allergies No Known Allergies Allergy (Verified 08/28/14 22:16) Home Medications: Ciprofloxacin HCl [Cipro] 500 mg PO DAILY 10 Days #10 tab 11/22/23 Ferrous Sulfate [Ferrous Sulfate*] 325 mg PO BID 30 Days #60 tab 11/22/23 metroNIDAZOLE [Flagyl] 500 mg PO Q8H 10 Days #30 tab 11/22/23 - Past Medical/Surgical History Diabetic: No -: anemia -: tubal ligation - Family History Mother -: Hypertension, Seizures, Liver disease - Social History Alcohol use: Yes CD- Drugs: No Caffeine use: Yes Review of Systems Gastrointestinal: Nausea, Abdominal Pain Physical Examination - Physical Exam General: Alert, In no apparent distress, Oriented x3 HEENT: Atraumatic, Normocephalic, PERRLA Neck: Supple, 2+ carotid pulse no bruit, JVD not distended Respiratory: Clear to auscultation bilaterally, Normal air movement Cardiovascular: No edema, Normal pulses, Regular rate/rhythm, Normal S1 S2 Capillary refill: <2 Seconds Gastrointestinal: Normal bowel sounds, Soft and benign, No tenderness Musculoskeletal: No clubbing, No swelling, No contractures Integumentary: No breakdown, No significant lesion Neurological: Normal speech, Normal strength at 5/5 x4 extr, Normal tone - Studies Laboratory Data (last 24 hrs) 01/11/24 01/11/24 03:30 03:30 WBC 6.70 Hgb 12.3 Hct 36.1 Plt Count 345 Sodium 140 Potassium 3.5 BUN 10 Creatinine 0.77 Glucose 104 Total Bilirubin 0.3 AST 6 L ALT 15 Alkaline Phosphatase 81 Lipase 34 Assessment and Plan - Plan Assessment and Plan Acute Cholecystitis CT abd/pelvis US abdomen NPO Dr. Linares constulted Pain meds zofran Zosyn IVF History of Iron deficiency anemia restart daily iron PO Monitor and transfuse PRN H/H - stable DVT ppx SCD until after surgery Full code LOS 2 days Discharge Plan: Home Plan to discharge in: 48 Hours - Advance Directives Does patient have a Living Will: No Does patient have a Durable POA for Healthcare: No Time Spent Managing Pts Care (In Minutes): 50
[2024-01-11] MEDS ORDERED: MORPHINE 2 MG/ML SYR IV PRN (07:15)
[2024-01-11] MEDS: NA CHLORIDE 0.9% 1,000 ML IV SCH (08:00)
[2024-01-11] MEDS: Ringers Lactate 1,000 ML IV ONE (11:30)
[2024-01-11 11:31] VITALS: O2SAT 100
[2024-01-11 11:32] VITALS: BMI 27.3
[2024-01-11] MEDS ORDERED: LIDOCAINE 1% MPF 5 ML VIAL ONE (11:56)
[2024-01-11] MEDS ORDERED: propofoL 200 MG/20 ML VIAL IV ONE (11:57)
[2024-01-11] MEDS ORDERED: MIDAZOLAM HCL 2 MG/2 ML INJ ONE (11:57)
[2024-01-11] MEDS ORDERED: FENTANYL CITR 100 MCG/2 ML ONE (11:57)
[2024-01-11] MEDS: PIPER TAZO 3.375 GM in NA CHLORIDE 0.9% 100 ML IV SCH (11:59)
[2024-01-11] MEDS ORDERED: ROCURONIUM 50 MG/5 ML VIAL IV ONE (11:59)
[2024-01-11] MEDS ORDERED: PIPER TAZO 3.375 GM in NA CHLORIDE 0.9% 100 ML IV SCH (12:00)
[2024-01-11] MEDS ORDERED: dexAMETHasone 4 MG/ML VIAL ONE (12:28)
[2024-01-11] MEDS: BUPIVACAINE 0.25% PF 30 ML VIAL ONE (12:40)
[2024-01-11] MEDS: SUGAMMADEX SODIUM 200 MG/2 ML VIAL IV ONE (13:06)
--- NOTE | 2024-01-11 13:10 | RAD REPORT ---
EXAM DESCRIPTION: CT Abdomen and Pelvis With Intravenous Contrast CLINICAL HISTORY: The patient is 43 years old and is Female; ABD PAIN TECHNIQUE: Axial computed tomography images of the abdomen and pelvis with intravenous contrast. S agittal and coronal reformatted images were created and reviewed. This CT exam was performed using one or more of the following dose reduction techniques: automated exposure control, adjustment of t he mA and/or kV according to patient size, and/or use of iterative reconstruction technique. COMPARISON: January 11, 2024 right upper quadrant ultrasound. November 21, 2023 CT abdomen and pelvis. FINDINGS: Artifacts: Scanner detector artifact noted. Lung bases: Unremarkable. No mass. No consolidation. ABDOMEN: Liver: Unremarkable. No mass. Gallbladder and bile ducts: Unremarkable. No calcified stones. No ductal dilation. Pancreas: No findings to suggest acute pancreatitis. No mass visualized. No ductal dilation. Spleen: Unremarkable. No splenomegaly. Adrenals: Unremarkable. No mass. Kidneys and ureters: Unremarkable. No solid mass. No hydronephrosis. Stomach and bowel: No bowel dilatation or obstruction. No bowel wall thickening. No gastric wall thickening visualized. Fluid in the gastric lumen. PELVIS: Appendix: The visualized appendix is normal. No pericecal inflammation to suggest acute appendici tis. Bladder: Unremarkable. No mass. Reproductive: 5.5 cm anterior subserosal uterine fibroid. Left ovarian follicles, the largest measuring 1.5 cm. Right ovarian corpus luteum has resolved when compared with the prior exam. ABDOMEN and PELVIS: Intraperitoneal space: Unremarkable. No free air. No significant fluid collection. Bones/joints: No acute fracture. No dislocation. Soft tissues: Unremarkable. Vasculature: Unremarkable. No abdominal aortic aneurysm. Lymph nodes: No pathologically enlarged lymph nodes. IMPRESSION: 1. Cholelithiasis mild gallbladder wall thickening suggesting cholecystitis, similar t o the previous CT. See right upper quadrant ultrasound report. 2. 5.5 cm anterior subserosal uterine fibroid. 3. Left ovarian follicles, the largest measuring 1.5 cm. No follow-up imaging recommended. Electronically signed by: Jud Justin MD 01/11/2024 05:13 AM PRACTICE PHYSICIAN Due to temporary technical issues with the PACS/Fluency reporting system, reports are being signed by the in house radiologists without review as a courtesy to insure prompt reporting. The interpreting radiologist is fully responsible for the content of the report.
--- NOTE | 2024-01-11 13:11 | P.OP ---
Preoperative diagnosis: Cholecystitis Postoperative diagnosis: Cholecystitis Primary procedure: Laparoscopic Cholecystectomy with ICG Anesthesia: GETA + Local Estimated blood loss: <5cc Specimen: Gallbladder Findings: Cholecystitis Complications: None Transferred to: Recovery Room Condition: Good
--- NOTE | 2024-01-11 13:16 | RAD REPORT ---
EXAM DESCRIPTION: Ultrasound abdomen limited CLINICAL HISTORY: 43 years Female ABD PAIN TECHNIQUE: Limited sonographic imaging of the right upper quadrant was performed on 01/11/2024 at 3: 3 5 AM. Comparison: CT abdomen and pelvis report from 11/21/2023 and abdomen ultrasound report from 4. The images were not available for review. FINDINGS: The gallbladder is well distended. There is an approximately 1.8 cm shadowing intraluminal echo in the neck of the gallbladder consistent with a gallstone. There are additional echogenic foci within the gallbladder fundus demonstrating comet tail artifact which may be due to hyperplastic cho lecystoses (adenomyomatosis and/or cholesterolosis). The gallbladder wall measures approximately 3 mm in diameter which is at the upper limits of normal. The common bile duct measures 5 mm in diameter. There is no evidence of biliary ductal dilatation. Trace pericholecystic fluid was noted by the techn ologist but not definitely confirmed on the images obtained. IMPRESSION: 1. Large gallstone near the neck of the gallbladder measuring approximately 1.8 cm in greatest dimension. 2. There are additional echogenic foci within the gallbladder fundus demonstrating comet tail artif act which may be due to hyperplastic cholecystoses (adenomyomatosis and/or cholesterolosis). 3. Borderline gallbladder wall thickening. 4. Trace pericholecystic fluid was noted by the technologist but not definitely confirmed on the im ages obtained. 5. Overall, findings are similar when compared to the prior study Electronically signed by: Maribell Anthony DO 01/11/2024 04:44 AM TRANSFER CLERK Due to temporary technical issues with the PACS/Fluency reporting system, reports are being signed by the in house radiologists without review as a courtesy to insure prompt reporting. The interpreting radiologist is fully responsible for the content of the report.
[2024-01-11] MEDS: HYDROMORPHONE HCL 1 MG/ML INJ ONE ×2 (13:34→13:57)
[2024-01-11] MEDS: ONDANSETRON 4 MG/2 ML VIAL IV PRN (17:15)
--- NOTE | 2024-01-11 22:27 | OP ---
Date of Procedure: 01/11/2024 Surgeon: García Linares MD, Preoperative Diagnosis: Cholecystitis. Postoperative Diagnosis: Cholecystitis. Procedure Performed: Laparoscopic cholecystectomy with cholangiography. Anesthesia: General endotracheal plus local with 0.25% Marcaine. Estimated Blood Loss: Less than 5 cc. Specimen: Gallbladder. Findings: Cholecystitis. Complications: None. Disposition: The patient was transferred to recovery room in good condition. Procedure In Detail: After informed consent was obtained, patient was brought to the operating room, prepped and draped in the usual sterile fashion. After adequate anesthesia was achieved, I made a s upraumbilical incision down to subcutaneous tissues. A 5 mm 0-degree optical trocar was introduced i n the abdomen without incident or complication. Insufflation was obtained to 15 mmHg at this time. There was no injury to vital structures upon entry into the abdomen. [address] d, one was a 5 mm trocar placed in the epigastric region, one was in the right upper quadrant, 5 mm t rocars were placed, both placed under direct visualization without incident or complication. The umb ilical trocar was then upsized to a 12 mm under direct visualization without incident or complication . Patient was positioned head up right-side up position. Ratcheted graspers were used to grasp the patient's gallbladder, placed it towards the patient's right shoulder. Dissection continued down the Livia pouch of the gallbladder, dissecting out 2 structures, identifying both cystic duct and cys tic artery. These structures were skeletonized showing only 2 structures of the gallbladder. The cr itical view of safety was obtained at this point. Indocyanine green cholangiography confirmed the an atomy and the confluence of the cystic duct, common duct junction, which was not near the field of di ssection. At this point, titanium clips were placed doubly on the proximal side, singly on the dista l side of both cystic duct and cystic artery. These structures were then ligated using Endo Alex. The gallbladder was then removed from the hepatic fossa without incident or complication. Gallbladd er was placed in EndoCatch bag, removed the umbilical trocar, sent it off for pathologic examination. The area was copiously irrigated. Indocyanine green cholangiography once again confirmed no leakag e of bile at the end the procedure. Clips were found to be in good anatomic position. No hemostatic measures were required. At this point, the patient was positioned back in neutral position. The 12 mm trocar site was closed using a Ehsan-Nell suture passer with 0 Vicryl, interrupted fashion, good approximation tissues. The abdomen was then copiously irrigated 1 last time, suctioned out unti l completely dry. The remaining trocars were removed. The abdomen was decompressed under direct vis ualization without incident or complication. All skin incisions were then copiously irrigated and cl osed with a 4-0 Monocryl in a running fashion, Dermabond was placed over top. The patient tolerated the procedure without incident or complication. Transferred back in good condition. All counts were correct at the end of the case. FARIBA/SANAM Voice ID: [id number] Report ID: [id number]
[2024-01-12] MEDS: HYDROCODONE/APAP 5/325 MG TAB PO PRN (01:24)
[2024-01-12 08:01] LABS: Absolute Lymphocytes (CBC) 1.2 K/uL (0.7-4.9); Basophils % 0.2 % (0-1.3); Lymphocytes % 10.4 % (15.3-44.8); MCV 81.9 fL (80-100); MPV 6.8 fL (7.6-11.3); Platelets 347 thou/uL (152-406); RBC Red Blood Cell Count 4.03 M/uL (3.86-4.86)
[2024-01-12 08:10] LABS: Anion Gap 7.5 mEq/L (5.0-15.0); Magnesium 2.2 mg/dL (1.6-2.4); Phosphorus 3.5 mg/dL (2.5-4.9); Potassium 3.5 mEq/L (3.5-5.1)
--- NOTE | 2024-01-12 10:16 | P.DS ---
Admission Date: 01/11/24 Discharge Date: 01/12/24 Disposition: ROUTINE DISCHARGE Discharge Condition: GOOD Reason for Admission: Acute Cholecystitis Brief History of Present Illness: Diagnosis: Acute Cholecystitis History of Iron deficiency anemia HPI 01/11/24 Rosmery Treadwell is a 44-year-old female with past medical history of symptomatic anemia who presents to the ED with complaints of epigastric pain associated with nausea which started 3 hours prior to arrival to the ED. She presented to the ED in November 2023 with similar symptoms, at that time was told she had cholecystitis. 11/21/2023 CT report reads gallbladder wall is mildly thickened and hyperenhancing, 1.8 cm cholesterol containing gallstone is seen near the gallbladder neck. Ultrasound report 11/21/2023 reads wall thickening with some wall edema and trace pericholecystic fluid. Findings may relate to adenomyomatosis however given the degree of edema, acute cholecystitis is not entirely excluded. During that November admission, Dr. Sams was consulted for possible surgery but was determined that she could be an outpatient cholecystectomy d/t the anemia and was discharged. Of note, atrial fibrillation was tachycardia d/t symptomatic anemia, she reports being seen by a firmware software verification engineer and was cleared of atrial fibrillation. She takes daily iron for her anemia and now has stable H/H. Initial vitals BP 133 / 81; Pulse 95; Resp 18; Temp 97.9(O); Pulse Ox 100% on R/A Laboratory evaluation UA negative, urine negative, H&H 12/36, platelets 345, otherwise unremarkable CT abdomen pelvis reports "IMPRESSION: 1. Cholelithiasis mild gallbladder wall thickening suggesting cholecystitis, similar to the previous CT. See right upper quadrant ultrasound report. 2. 5.5 cm anterior subserosal uterine fibroid. 3. Left ovarian follicles, the largest measuring 1.5 cm. No follow-up imaging recommended." Ultrasound abdomen reports " 1. Large gallstone near the neck of the gallbladder measuring approximately 1.8 cm in greatest dimension. 2. There are additional echogenic foci within the gallbladder fundus demonstrating comet tail artifact which may be due to hyperplastic cholecystoses (adenomyomatosis and/or choles terolosis). 3. Borderline gallbladder wall thickening. 4. Trace pericholecystic fluid was noted by the technologist but not definitely confirmed on the images obtained. 5. Overall, findings are similar when compared to the prior study." Rosmery will be admitted to hospitalist service for further evaluation and treatment of acute cholecystitis, Dr. Linares was consulted. Hospital Course: Rosmery Treadwell is a pleasant 43 year old female with a past medical history significant for Symtomatic anemia who was admitted to the [facility] on 01/11/24 for Cholecystitis. Rosmery Treadwell presented to the ED with complaints of epigastric pain with nausea. CT abdomen pelvis revealed cholelithiasis and Dr. Linares was consulted. Laparoscopic cholecystectomy was performed 01/10. Dr. Linares has cleared for discharge. SHe has tolerated the surgical procedure well, surgical incisions are well approximated and dry, she is tolerating PO diet, ambulating independently, passing gas, and hemodynamically stable. On 01/12/24, Rosmery was seen on morning rounds and deemed medically stable for discharge. Rosmery was discharged with instructions to schedule follow-up appointments with PCP and Dr. Linares. Rosmery was provided prescriptions for [place]. The patient and family members were given the opportunity to ask questions and reported no further questions. Furthermore, all questions were answered to the best of my ability. A copy of this discharge summary will be sent to the above providers to facilitate continuity of care. Today, I personally spent 50 minutes with Rosmery, of which greater than 50% of the time was spent in patient education, counseling, and coordination of care as described above. Physical Exam General: AAOx3, NAD HEENT: Atraumatic, Normocephalic, PERRLA Neck: Supple, 2+ carotid pulse no bruit, JVD not distended Respiratory: Clear to auscultation bilaterally, Normal air movement, on RA Cardiovascular: No edema, Normal pulses, RRR, S1 S2 present Capillary refill: <2 Seconds Gastrointestinal: Normal bowel sounds, Soft and benign, ND/NT Musculoskeletal: No clubbing, No swelling, No contractures Integumentary: No breakdown, No significant lesion, abdominal surgical incisions approximated and dry Neurological: Normal speech, Normal strength at 5/5 x4 extr, Normal tone Vital Signs/Physical Exam: Temp Pulse Resp BP Pulse Ox 97.2 F 52 16 118/66 100 01/12/24 07:15 01/12/24 07:15 01/12/24 07:15 01/12/24 07:15 01/12/24 07:15 Laboratory Data at Discharge: WBC 11.40 thou/uL (4.3-10.9) H 01/12/24 07:15 Hgb 11.2 g/dL (12.0-15.0) L D 01/12/24 07:15 Hct 33.0 % (36.0-45.0) L 01/12/24 07:15 Plt Count 347 thou/uL (152-406) 01/12/24 07:15 Sodium 139 mEq/L (136-145) 01/12/24 07:15 Potassium 3.5 mEq/L (3.5-5.1) 01/12/24 07:15 BUN 5 mg/dL (7-18) L 01/12/24 07:15 Creatinine 0.74 mg/dL (0.55-1.02) 01/12/24 07:15 Glucose 101 mg/dL (74-106) 01/12/24 07:15 Phosphorus 3.5 mg/dL (2.5-4.9) 01/12/24 07:15 Magnesium 2.2 mg/dL (1.6-2.4) 01/12/24 07:15 Total Bilirubin 0.3 mg/dL (0.2-1.0) 01/11/24 03:30 AST 6 U/L (15-37) L 01/11/24 03:30 ALT 15 U/L (13-56) 01/11/24 03:30 Alkaline Phosphatase 81 U/L (45-117) 01/11/24 03:30 Lipase 34 U/L (13-75) 01/11/24 03:30 Home Medications: Ferrous Sulfate [Ferrous Sulfate*] 325 mg PO BID 30 Days #60 tab 11/22/23 Physician Discharge Instructions: Rosmery Treadwell presented to the ED with complaints of epigastric pain with na usea. CT abdomen pelvis revealed cholelithiasis and Dr. Linares was consulted. Laparoscopic cholecystectomy was performed 01/10. Dr. Linares has cleared for discharge. Pain medication has been sent to your pharmacy. 1. Please call and schedule a follow-up appointment with your PCP in 3-5 days - Please follow-up with your PCP for medication refills/adjustments 2. Please call and schedule a follow-up appointment with Dr. Linares in 3-5 days 3. Continue regular diet 4. Ambulate as able, restriction to not lift more than 10 pounds for 5 days. 5. Return to ED if symptoms worsen New medication [place] as needed Diet: Coral Activity: No lifting more than 10 lbs Followup: García Linares MD [ACTIVE - CAN ADMIT] - Tricia Ferreira MD [Primary Care Provider] - Time spent managing pt's care (in minutes): 50
[2024-01-12 12:49] VITALS: BP 107/59; TEMP 97.7
== END 2024-01-12 13:19 | disposition home or self-care (01) | DRG 419 ==
LOC: ER 03:06 → ERHOLD 07:15 → 2ND 12:11
PROVIDERS: ADMIT Internal Medicine; ATTEND Internal Medicine
PROC: BF121ZZ Fluoroscopy of Gallbladder using Low Osmolar Contrast (ICD-10-PCS; 2024-01-11)
PROC: 0FT44ZZ Resection of Gallbladder, Percutaneous Endoscopic Approach (ICD-10-PCS; principal; 2024-01-11 16:30)
DX: K80.00 Calculus of gallbladder with acute cholecystitis without obstruction (principal); D50.9 Iron deficiency anemia, unspecified; I48.91 Unspecified atrial fibrillation; Z98.51 Tubal ligation status; Z79.899 Other long term (current) drug therapy
CPT/HCPCS: 31720; 36415; 74177; 76705; 80048; 80053; 81003; 81025; 83690; 83735; 84100; 85025; 88304; 94010; 96361; 96365; 96366; 96367; 96375; 99285; J1100; J1170; J2001; J2250; J2405; J2543; J2704; J3010; J7030; J7120; J7799; Q9967

== ENCOUNTER 2024-10-03 04:34 | Emergency (ER) | payer OTHER ==
[2024-10-03] MEDS ORDERED: KETOROLAC 30 MG/ML INJ ONE (04:52)
[2024-10-03] MEDS ORDERED: ONDANSETRON 4 MG/2 ML VIAL ONE (05:05)
[2024-10-03] MEDS ORDERED: MORPHINE 4 MG/ML SYR ONE ×2 (05:05→07:30)
[2024-10-03] MEDS ORDERED: NA CHLORIDE 0.9% 1,000 ML ONE ×2 (06:01→07:30)
[2024-10-03 06:31] LABS: Absolute Basophils 0.1 K/uL (0-0.5); Absolute Lymphocytes (CBC) 0.8 K/uL (0.7-4.9); Absolute Monocytes 0.8 K/uL (0.1-1.3); Absolute Neutrophil 17.7 K/uL (1.8-8.0); Basophils % 0.5 % (0-1.3); Eosinophils % 0.1 % (0-4.4); Hematocrit 41.2 % (36.0-45.0); Hemoglobin 14.1 g/dL (12.0-15.0); MCH 30.6 pg (27.0-35.0); MCHC 34.3 g/dL (32.0-36.0); MCV 89.1 fL (80-100); MPV 6.8 fL (7.6-11.3); Monocytes % 4.3 % (3.3-12.3); Neutrophils % 91.1 % (41.7-73.7); Platelets 293 thou/uL (152-406); RBC Red Blood Cell Count 4.62 M/uL (3.86-4.86); Red Cell Distribution Width 12.7 % (12.1-15.2)
[2024-10-03 06:49] LABS: ALT/SGPT < 14 U/L (13-56); AST/SGOT 11 U/L (15-37); Albumin 3.7 g/dL (3.4-5.0); Albumin/Globulin Ratio 1.1 (1.1-1.8); Alkaline Phosphatase 80 U/L (45-117); Anion Gap 7.3 mEq/L (5.0-15.0); BUN Blood Urea Nitrogen 12 mg/dL (7-18); Bicarbonate 27 mEq/L (21-32); Bilirubin Total 0.8 mg/dL (0.2-1.0); Globulin 3.5 g/dL (2.3-3.5); Glomerular Filtration Rate 106 ml/min (=/>90); Glucose Level 124 mg/dL (74-106); Potassium 3.3 mEq/L (3.5-5.1); Protein, Total 7.2 g/dL (6.4-8.2); Sodium Level 141 mEq/L (136-145)
--- NOTE | 2024-10-03 06:49 | RAD REPORT ---
EXAM: CT Abdomen and Pelvis Without Intravenous Contrast CLINICAL HISTORY: The patient is 44 years old and is Female; pelvic pain after intercourse;Abd pain TECHNIQUE: Axial computed tomography images of the abdomen and pelvis without intravenous contrast. Sagittal and coronal reformatted images were created and reviewed. This CT exam was performed using one or more of the following dose reduction techniques: automated exposure control, adjustmen t of the mA and/or kV according to patient size, and/or use of iterative reconstruction technique. COMPARISON: No relevant prior studies available. FINDINGS: Lung bases: Unremarkable. No mass. No consolidation. ABDOMEN: Liver: Unremarkable. Gallbladder and bile ducts: Gallbladder is surgically absent. No ductal dilation. Pancreas: Unremarkable. No ductal dilation. Spleen: Unremarkable. No splenomegaly. Adrenals: Unremarkable. No mass. Kidneys and ureters: Unremarkable. No obstructing stones. No hydronephrosis. Stomach and bowel: Unremarkable. No obstruction. No mucosal thickening. PELVIS: Appendix: No findings to suggest acute appendicitis. Bladder: Small amount of air in the bladder. Reproductive: Uterus is not seen. ABDOMEN and PELVIS: Intraperitoneal space: There is scattered free air in the abdomen and pelvis which can be seen wi th vaginal cuff tear in the setting of intercourse after hysterectomy. No other source of free air is identified. Small amount of free fluid in the lower pelvis. Bones/joints: No acute fracture. No dislocation. Soft tissues: Unremarkable. Vasculature: Unremarkable. No abdominal aortic aneurysm. Lymph nodes: Unremarkable. No enlarged lymph nodes. IMPRESSION: 1. Uterus is not seen. 2. There is scattered free air in the abdomen and pelvis which can be seen with vaginal cuff tear i n the setting of intercourse after hysterectomy. No other source of free air is identified. 3. Gallbladder is surgically absent. 4. Small amount of free fluid in the lower pelvis. Electronically signed by: Yannick Navarro MD 10/03/2024 06:45 AM [facility] 8 Due to temporary technical issues with the [employer] reporting system, reports are being nayeli d by the in-house radiologist without review as a courtesy to ensure prompt reporting the interpreting radiologist is fully responsible for the content of the report. Transcribed Date/Time: 10/03/2024 6:49 AM
--- NOTE | 2024-10-03 07:28 | ER ---
Nurse's Notes [facility] Name: Rosmery Treadwell Age: 44 yrs Sex: Female : 1980 Arrival Date: 10/03/2024 Time: 04:34 Bed 15 Private MD: Diagnosis: Acute vaginal cuff tear , acute Free intraperitoneal air;Elevated white blood cell count Presentation: 10/03 04:42 Chief complaint: Patient states: BIBA for lower abdominal pain after a sexual ay encounter. Coronavirus screen: Client denies travel out of the [place] in the last 14 days. Ebola Screen: No symptoms or risks identified at this time. Initial Sepsis Screen: Does the patient meet any 2 criteria? HR > 90 bpm. No. Patient's initial sepsis screen is negative. Does the patient have a suspected source of infection? No. Patient's initial sepsis screen is negative. Risk Assessment: Do you want to hurt yourself or someone else? Patient reports no desire to harm self or others. Note Pt reported abd pain after a sexual encounter about 3am this morning. Pt reported she experienced bloody discharge from vagina prior to getting to ER. C/O nausea but denies vomiting. Rated pain of 10/10 in all 4 quadrants. PMHX hysterectomy in May, cholecystectomy, tubal ligation, AFib- on metoprolol. Onset of symptoms was October 03, 2024. 04:42 Method Of Arrival: EMS: [facility] ay 04:42 Acuity: SLIM 3 ay 04:54 Care prior to arrival: IV initiated. 18 GA, in the left antecubital area. bm8 Triage Assessment: 04:59 General: Appears distressed, uncomfortable, Behavior is calm, cooperative. Pain: ay Complains of pain in pelvis Pain currently is 10 out of 10 on a pain scale. EENT: No signs and/or symptoms were reported regarding the EENT system. Neuro: Level of Consciousness is awake, alert, obeys commands, Oriented to person, place, time, situation, Speech is normal. Cardiovascular: Capillary refill < 3 seconds. Respiratory: Airway is patent Respiratory effort is unlabored. GI: Abdomen is round Reports lower abdominal pain, nausea, Patient currently denies vomiting. : Reports discharge, from vagina that is bloody. Derm: No signs and/or symptoms reported regarding the dermatologic system. Musculoskeletal: No signs and/or symptoms reported regarding the musculoskeletal system. RADIOSONDE SPECIALIST: 04:59 LMP N/A - Hysterectomy, Not ay Historical: - Allergies: 04:59 NKDA; ay - Home Meds: 07:17 Metoprolol Tartrate Oral [Active]; jl7 - PMHx: 07:17 Atrial fibrillation; jl7 - PSHx: 07:17 Ligation of fallopian tube; Total abdominal hysterectomy; Cholecystectomy; jl7 - Immunization history:: Adult Immunizations not up to date. - Infectious Disease History:: Denies. - Social history:: Smoking status: Patient denies any tobacco usage or history of. - Family history:: not pertinent. Screenin:07 [facility] ED Fall Risk Assessment (Adult) History of falling in the last 3 months, ay including since admission No falls in past 3 months (0 pts) Confusion or Disorientation No (0 pts) Intoxicated or Sedated No (0 pts) Impaired Gait No (0 pts) Mobility Assist Device Used No (0 pt) Altered Elimination No (0 pt) Score/Fall Risk Level 0 - 2 = Low Risk Oriented to surroundings, Maintained a safe environment, Educated pt \T\ family on fall prevention, incl call for assistance when getting out of bed. Abuse screen: Denies threats or abuse. Nutritional screening: No deficits noted. Tuberculosis screening: No symptoms or risk factors identified. Assessment: 05:07 Reassessment: See triage assessment. ay 06:46 Reassessment: Patient states feeling better. Reassessment: Patient appears in no ay apparent distress at this time. Pain: Pain currently is 4 out of 10 on a pain scale. 07:00 General: Appears in no apparent distress. uncomfortable, Behavior is calm, cooperative, jl7 appropriate for age. Pain: Complains of pain in abdomen and pelvis Pain currently is 5 out of 10 on a pain scale. Neuro: Level of Consciousness is awake, alert, obeys commands, Oriented to person, place, time, situation. Cardiovascular: Patient's skin is warm and dry. Respiratory: Airway is patent Respiratory effort is even, unlabored, Respiratory pattern is regular, symmetrical. :. : Reports pain post intercourse. Derm: Skin is pink, warm \T\ dry. 08:00 Reassessment: Patient appears in no apparent distress at this time. No changes from jl7 previously documented assessment. Patient and/or family updated on plan of care and expected duration. Pain level reassessed. Patient is alert, oriented x 3, equal unlabored respirations, skin warm/dry/pink. 08:30 Reassessment: pain decreased, rated 1/10 at this time. jl7 09:12 Reassessment: [facility] at bedside to transport pt. jl7 Vital Signs: 04:42 BP 128 / 93; Pulse 92; Resp 20; Pulse Ox 99% on R/A; ay 05:07 BP 118 / 74; Pulse 83; Resp 20; Temp 99.3; Pulse Ox 99% on R/A; ay 05:51 BP 113 / 81; Pulse 93; Resp 18; Pulse Ox 99% on R/A; ay 06:46 BP 121 / 74; Pulse 80; Resp 18; Temp 99.3; Pulse Ox 99% on R/A; Pain 4/10; bm8 07:16 BP 141 / 90; Pulse 105; Resp 17; Pulse Ox 98% ; Pain 5/10; jl7 08:37 BP 120 / 73; Pulse 101; Resp 15; Temp 99.9; Pulse Ox 98% ; Pain 1/10; jl7 08:38 Pain 1/10; jl7 06:46 Pain Scale: Adult bm8 07:16 Pain Scale: Adult jl7 08:37 Pain Scale: Adult jl7 08:38 Pain Scale: Adult jl7 [place] Coma Score: 06:46 Eye Response: spontaneous(4). Motor Response: obeys commands(6). Verbal Response: bm8 oriented(5). Total: 15. 07:28 Eye Response: spontaneous(4). Motor Response: obeys commands(6). Verbal Response: sp4 oriented(5). Total: 15. ED Course: 04:42 Patient arrived in ED. rv1 04:42 Jackie Smith, LUPE is Primary Nurse. ay 04:45 Arun Melissa MD is Attending Physician. sp4 04:55 Maintain EMS IV. Dressing intact. Good blood return noted. Site clean \T\ dry. Gauge \T\ bm 8 site: 18G LAC. Flushed with 10 mL NS. 04:58 Triage completed. ay 04:59 Arm band placed on right wrist. Patient placed in an exam room. ay 05:07 No provider procedures requiring assistance completed. Inserted Maintain EMS IV. ay Dressing intact. Good blood return noted. Site clean \T\ dry. Gauge \T\ site: 20g. Flushed with 10 mL NS. 05:07 Patient maintains SpO2 saturation greater than 95% on room air. ay 05:07 Patient has correct armband on for positive identification. Placed in gown. Bed in low ay position. Call light in reach. Side rails up X2. Provided Education on: Procedure Consent. 06:04 CT Abd/Pelvis - Without Contrast In Process Unspecified. EDMS 06:15 Initial lab(s) drawn, by ED staff, sent to lab. bm8 06:24 CBC with Diff Sent. ay 06:24 CMP Sent. ay 06:46 Client placed on continuous cardiac and pulse oximetry monitoring. NIBP monitoring bm8 applied. Pulse ox on. NIBP on. Door closed. Noise minimized. Warm blanket given. Pillow given. Verbal reassurance given. Head of bed elevated. 07:09 Report given to Gage RN. bm8 07:20 Assist provider with pelvic exam: Performed by Arun Melissa MD Patient tolerated jl7 well. 09:03 Patient transferred, IV remains in place. intact, No redness/swelling at site. jl7 09:[address] Benjamin called [facility] talked to Aldair [phone] Angela Andrew accepted pt to [facility] sp admin Aladir Chanel Called [facility] talked with Amado [phone] declined transfer at capacity/service. called [facility] for transfer talked to Eneida. Administered Medications: 08:38 Discontinued: ns 0.9% 1000 ml IV at 125 ml/hr continuous lucina 04:54 Drug: Ketorolac IVP 30 mg IVP once Route: IVP; Site: left antecubital; bm8 05:20 Follow up: Response: No adverse reaction; Pain is decreased ay 05:10 Drug: morphine IVP or IV 4 mg IVP once over 4 mins Route: IVP; Infused Over: 4 mins; bm8 Site: left antecubital; 05:20 Follow up: Response: No adverse reaction; Pain is decreased ay 05:10 Drug: Ondansetron IVP 4 mg IVP once; over 2 minutes Route: IVP; Site: left antecubital; bm8 06:47 Follow up: Response: No adverse reaction bm8 06:24 Drug: NS 0.9% IV 1000 ml IV at 1 bolus Per protocol; to be given as a bolus over 60 ay minutes Route: IV; Rate: 1 bolus; Site: left antecubital; 07:11 Follow up: Response: No adverse reaction; IV Status: Completed infusion; IV Intake: bm8 1000ml 08:10 Drug: Piperacillin-Tazobactam IVPB 3.375 grams IVPB once over 60 mins; (mix in NS 100 jl7 mL) Route: IVPB; Infused Over: 60 mins; Site: left antecubital; 09:12 Follow up: Response: No adverse reaction; IV Status: Completed infusion jl7 08:25 Drug: NS 0.9% IV 1000 ml IV at 125 ml/hr continuous Route: IV; Rate: 125 ml/hr; Site: [facility] right antecubital; 08:54 Follow up: Response: No adverse reaction; IV Status: Completed infusion; Order to [facility] discontinue infusion 08:25 Drug: morphine IVP or IV 6 mg IVP once over 4 mins Route: IVP; Infused Over: 4 mins; jl7 Site: left antecubital; 08:38 Follow up: Pain 1/ Adult; Response: No adverse reaction; Pain is decreased; RASS: jl7 Alert and Calm (0) 08:54 Drug: NS 0.9% IV 1000 ml IV at 1000 ml once; to be given as a bolus over 60 minutes jl7 Route: IV; Rate: 1000 ml; Site: left antecubital; 09:11 Follow up: Response: No adverse reaction; IV Status: Infusion continued upon transfer jl7 08:54 Drug: NS 0.9% with KCl IV 20 mEq/L 1000 ml IV at 125 ml/hr continuous Route: IV; Rate: jl7 125 ml/hr; Site: left antecubital; 09:11 Follow up: IV Status: Infusion continued upon transfer jl7 09:12 Follow up: Response: No adverse reaction jl7 08:54 Drug: Acetaminophen PO 1000 mg PO once Route: PO; jl7 09:11 Follow up: Response: No adverse reaction jl7 Medication: 05:07 VIS not applicable for this client. ay Intake: 07:11 IV: 1000ml; Total: 1000ml. bm8 Outcome: 07:27 ER care complete, transfer ordered by MD. sp4 09:11 Transferred by ground EMS to [facility], Transfer form jl7 completed. 09:11 Condition: stable 09:11 Discharge instructions given to patient, Instructed on the need for transfer, Demonstrated understanding of instructions, :12 Patient left the ED. jl7 Signatures: Dispatcher [employer] EDMS Ana Paula Leroy Jahala RN RN jl7 Estela Sauceda rvArun Jeff MD MD sp4 Shawn Collins RN RN bm8 Jackie Smith RN RN ay Corrections: (The following items were deleted from the chart) 04:59 04:58 PMHx: Atrial Fib; ay ay 04:59 04:58 PMHx: Anemia; ay ay 04:59 04:58 PSHx: tubal ligation; ay ay 05:12 05:07 BP 118 / 74; Pulse 83bpm; Resp 20bpm; Pulse Ox 99% RA; ay ay 07:11 06:24 Response: No adverse reaction ay bm8
--- NOTE | 2024-10-03 07:28 | EDPHYS ---
Physician Documentation [facility] Name: Rosmery Treadwell Age: 44 yrs Sex: Female : 1980 Arrival Date: 10/03/2024 Time: 04:34 Bed 15 Private MD: ED Physician Arun Melissa HPI: 10/03 04:45 This 44 yrs old Black Female presents to ER via Unassigned with complaints of pelvic sp4 vaginal pain . 07:28 44-year-old female presents with pelvic pain and vaginal bleeding after having sexual sp4 intercourse at 3 AM.. Patient reports moderate to severe vaginal pain and pelvic pain. Patient additionally reports that she has history of hysterectomy at [facility] on 05/24/[address] Mckeon . 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 - Infectious Disease History:: Denies. - Social history:: Smoking status: Patient denies any tobacco usage or history of. - Family history:: not pertinent. ROS: 07:28 Constitutional: Negative for fever, chills, and weight loss, positive vaginal pain, sp4 positive vaginal bleeding, positive pelvic pain 07:28 All other systems are negative, Exam: 07:28 Constitutional: This is a well developed, well nourished patient who is awake, alert, sp4 and in no acute distress. Head/Face: Normocephalic, atraumatic. Eyes: Pupils equal round and reactive to light, extra-ocular motions intact. Lids and lashes normal. Conjunctiva and sclera are not injected. Cornea within normal limits. Periorbital areas with no swelling, redness, or edema. ENT: Nares patent. No nasal discharge, no septal abnormalities noted. Tympanic membranes are normal and external auditory canals are clear. Oropharynx with no redness, swelling, or masses, exudates, or evidence of obstruction, uvula midline. Mucous membranes moist. Neck: Trachea midline, no thyromegaly or masses palpated, and no cervical lymphadenopathy. Supple, full range of motion without nuchal rigidity, or vertebral point tenderness. Chest/axilla: Normal chest wall appearance and motion. Nontender with no deformity. No lesions are appreciated. Cardiovascular: Regular rate and rhythm with a normal S1 and S2. No gallops, murmurs, or rubs. Normal PMI, no JVD. No pulse deficits. Respiratory: Lungs have equal breath sounds bilaterally, clear to auscultation and percussion. No rales, rhonchi or wheezes noted. No increased work of breathing, no retractions or nasal flaring. Abdomen/GI: Soft, with normal bowel sounds. No distension or tympany. No guarding or rebound. No evidence of tenderness throughout. Back: No spinal tenderness. No costovertebral tenderness. Female : Normal external genitalia., No active bleeding, vaginal introitus contains small vaginal area of denuded skin. No sign of intestinal prolapse into vaginal vault . Skin: Warm, dry with normal turgor. Normal color with no rashes, no lesions, and no evidence of cellulitis. MS/ Extremity: Pulses equal, no cyanosis. Neurovascular intact. Full, normal range of motion. Neuro: Awake and alert, GCS 15, oriented to person, place, time, and situation. Cranial nerves II-XII grossly intact. Motor strength 5/5 in all extremities. Sensory grossly intact. Psych: Awake, alert, with orientation to person, place and time. Behavior, mood, and affect are within normal limits Vital Signs: 04:42 BP 128 / 93; Pulse 92; Resp 20; Pulse Ox 99% on R/A; ay 05:07 BP 118 / 74; Pulse 83; Resp 20; Temp 99.3; Pulse Ox 99% on R/A; ay 05:51 BP 113 / 81; Pulse 93; Resp 18; Pulse Ox 99% on R/A; ay 06:46 BP 121 / 74; Pulse 80; Resp 18; Temp 99.3; Pulse Ox 99% on R/A; Pain 4/10; bm8 07:16 BP 141 / 90; Pulse 105; Resp 17; Pulse Ox 98% ; Pain 5/10; jl7 08:37 BP 120 / 73; Pulse 101; Resp 15; Temp 99.9; Pulse Ox 98% ; Pain 1/10; jl7 08:38 Pain 1/10; jl7 06:46 Pain Scale: Adult bm8 07:16 Pain Scale: Adult jl7 08:37 Pain Scale: Adult jl7 08:38 Pain Scale: Adult jl7 Lucia Coma Score: 06:46 Eye Response: spontaneous(4). Motor Response: obeys commands(6). Verbal Response: bm8 oriented(5). Total: 15. 07:28 Eye Response: spontaneous(4). Motor Response: obeys commands(6). Verbal Response: sp4 oriented(5). Total: 15. MDM: 04:46 Medical Screening Exam initiated sp4 07:23 ED course: EXAM: CTAbdomen and Pelvis Without Intravenous Contrast CLINICAL HISTORY: sp4 The patient is 44 years old and is Female; pelvic pain after intercourse;Abd pain TECHNIQUE: Axial computed tomography images of the abdomen and pelvis without intravenous contrast. Sagittal and coronal reformatted images were created and reviewed. This CT exam was performed using one or more of the following dose reduction techniques: automated exposure control, adjustment of the mA and/or kV according to patient size, and/or use of iterative reconstruction technique. COMPARISON: No relevant prior studies available. FINDINGS: Lung bases: Unremarkable. No mass. No consolidation. ABDOMEN: Liver: Unremarkable. Gallbladder and bile ducts: Gallbladder is surgically absent. No ductal dilation. Pancreas: Unremarkable. No ductal dilation. Spleen: Unremarkable. No splenomegaly. Adrenals: Unremarkable. No mass. Kidneys and ureters: Unremarkable. No obstructing stones. No hydronephrosis. Stomach and bowel: Unremarkable. No obstruction. No mucosal thickening. PELVIS: Appendix: No findings to suggest acute appendicitis. Bladder: Small amount of air in the bladder. Reproductive: Uterus is not seen. ABDOMEN and PELVIS: Intraperitoneal space: There is scattered free air in the abdomen and pelvis which can be seen with vaginal cuff tear in the setting of intercourse after hysterectomy. No other source of free air is identified. Small amount of free fluid in the lower pelvis. Bones/joints: No acute fracture. No dislocation. Soft tissues: Unremarkable. Vasculature: Unremarkable. No abdominal aortic aneurysm. Lymph nodes: Unremarkable. No enlarged lymph nodes. IMPRESSION: 1. Uterus is not seen. 2. There is scattered free air in the abdomen and pelvis which can be seen with vaginal cuff tear in the setting of intercourse after hysterectomy. No other source of free air is identified. 3. Gallbladder is surgically absent. 4. Small amount of free fluid in the lower pelvis. Electronically signed by: Yannick Navarro MD 10/03/2024 06:45 AM. 07:31 Differential diagnosis: abruptio placentae, betty infection, cervicitis, sp4 dysfunctional uterine bleeding, dysmenorrhea, endometriosis. Data reviewed: vital signs, nurses notes, old medical records, lab test result(s), radiologic studies, CT scan. Transition of care: After a detail discussion of the patient's case, care is transferred to Álvaro Benjamin MD. ED course: Patient was ordered IV antibiotic and n.p.o. Patient was informed that she needs to be transferred for TOOL LAPPER HAND surgery to repair her vaginal cuff. Care transferred to daytime physician.. 10/03 05:58 Order name: CBC with Diff sp4 10/03 05:58 Order name: CMP; Complete Time: 07:13 sp4 10/03 05:58 Order name: Urinalysis w/ reflexes; Complete Time: 07:51 sp4 10/03 08:26 Order name: Blood Culture Adult (2) jl7 10/03 05:05 Order name: CT Abd/Pelvis - Without Contrast sp4 10/03 04:46 Order name: Pelvic Exam Setup; Complete Time: 05:26 sp4 10/03 05:58 Order name: IV Saline Lock; Complete Time: 05:59 sp4 10/03 05:58 Order name: Labs collected and sent; Complete Time: 07:11 sp4 10/03 07:14 Order name: NPO; Complete Time: 07:15 sp4 Administered Medications: 08:38 Discontinued: ns 0.9% 1000 ml IV at 125 ml/hr continuous lucina 04:54 Drug: Ketorolac IVP 30 mg IVP once Route: IVP; Site: left antecubital; bm8 05:20 Follow up: Response: No adverse reaction; Pain is decreased ay 05:10 Drug: morphine IVP or IV 4 mg IVP once over 4 mins Route: IVP; Infused Over: 4 mins; bm8 Site: left antecubital; 05:20 Follow up: Response: No adverse reaction; Pain is decreased ay 05:10 Drug: Ondansetron IVP 4 mg IVP once; over 2 minutes Route: IVP; Site: left antecubital; bm8 06:47 Follow up: Response: No adverse reaction bm8 06:24 Drug: NS 0.9% IV 1000 ml IV at 1 bolus Per protocol; to be given as a bolus over 60 ay minutes Route: IV; Rate: 1 bolus; Site: left antecubital; 07:11 Follow up: Response: No adverse reaction; IV Status: Completed infusion; IV Intake: bm8 1000ml 08:10 Drug: Piperacillin-Tazobactam IVPB 3.375 grams IVPB once over 60 mins; (mix in NS 100 jl7 mL) Route: IVPB; Infused Over: 60 mins; Site: left antecubital; 09:12 Follow up: Response: No adverse reaction; IV Status: Completed infusion jl7 08:25 Drug: NS 0.9% IV 1000 ml IV at 125 ml/hr continuous Route: IV; Rate: 125 ml/hr; Site: [facility] right antecubital; 08:54 Follow up: Response: No adverse reaction; IV Status: Completed infusion; Order to [facility] discontinue infusion 08:25 Drug: morphine IVP or IV 6 mg IVP once over 4 mins Route: IVP; Infused Over: 4 mins; [facility] Site: left antecubital; 08:38 Follow up: Pain 1/10 Adult; Response: No adverse reaction; Pain is decreased; RASS: [facility] Alert and Calm (0) 08:54 Drug: NS 0.9% IV 1000 ml IV at 1000 ml once; to be given as a bolus over 60 minutes jl7 Route: IV; Rate: 1000 ml; Site: left antecubital; 09:11 Follow up: Response: No adverse reaction; IV Status: Infusion continued upon transfer jl7 08:54 Drug: NS 0.9% with KCl IV 20 mEq/L 1000 ml IV at 125 ml/hr continuous Route: IV; Rate: jl7 125 ml/hr; Site: left antecubital; 09:11 Follow up: IV Status: Infusion continued upon transfer jl7 09:12 Follow up: Response: No adverse reaction jl7 08:54 Drug: Acetaminophen PO 1000 mg PO once Route: PO; jl7 09:11 Follow up: Response: No adverse reaction jl Disposition Summary: 10/03/24 07:27 Transfer Ordered Notes: Reason: Higher level of care sp4 Condition: Stable sp4 Problem: new sp4 Symptoms: have improved sp4 Transfer Location: [facility]-System(10/03/24 07:54) lucina Accepting Physician: Attending nyjuan(10/03/24 09:12) luis enrique7 Diagnosis - Acute vaginal cuff tear , acute Free intraperitoneal air sp4 - Elevated white blood cell count [facility] Forms: - Medication Reconciliation Form sp4 - SBAR form sp4 Signatures: Dispatcher [employer] EDMS Álvaro Benjamin MD MD cha Leal, Jahala, RN RN jl7 Arun Melissa MD MD sp4 Shawn Collins, RN RN bm8 Jackie Smith, RN RN ay Corrections: (The following items were deleted from the chart) 04:59 04:58 PMHx: Atrial Fib; ay ay 04:59 04:58 PMHx: Anemia; ay ay 04:59 04:58 PSHx: tubal ligation; ay ay 05:59 05:59 CBC+H.LAB.BRZ ordered. EDMS EDMS 05:59 05:59 COMPREHENSIVE METABOLIC PANEL+C.LAB.BRZ ordered. EDMS EDMS 05:59 05:59 Urinalysis+U.LAB.BRZ ordered. EDMS EDMS 07:54 07:27 Attending MD at [facility] 07:54 07:27 Other [facility] sp4 [facility] 07:55 07:54 Attending MD radha verdugo [facility] 09:12 07:55 Attending rust lucina chapman
[2024-10-03] MEDS ORDERED: NA CHLORIDE 0.9% 100 ML ONE (07:30)
[2024-10-03] MEDS ORDERED: PIPERACIL/TAZO 3.375 GM VIAL IV ONE (07:31)
[2024-10-03 07:32] LABS: Specific Gravity 1.022 (1.005-1.030); Sqamous Epithelial <5 /HPF (None Seen); Urine Bacteria None Seen /HPF (<20); Urine Bilirubin NEGATIVE (Negative); Urine Blood 1+ (Negative); Urine Clarity Clear (Clear); Urine Color Light-Yellow (Yellow); Urine Culture Reflex Order NOT NEEDED; Urine Glucose NEGATIVE (Negative); Urine Ketones 1+ (Negative); Urine Microscopic Reflex YN ORDER UMIC; Urine Mucus Slight /HPF (None Seen); Urine Nitrite NEGATIVE (Negative); Urine Protein NEGATIVE (Negative); Urine Urobilinogen Normal (Normal); Urine WBC <5 /HPF (<5)
[2024-10-03] MEDS ORDERED: ACETAMINOPHEN 500 MG TAB ONE (08:44)
[2024-10-03] MEDS ORDERED: NS KCL 20MEQ 1,000 ML IV ONE (08:45)
[2024-10-03 09:13] LABS: Platelet Estimate ADEQ; White Blood Cell Scan OK (OK)
[2024-10-03 09:14] LABS: Blood Morphology Comment NOT SEEN (NOT SEEN)
[2024-10-03 09:47] VITALS: O2SAT 98
[2024-10-03 09:49] VITALS: BP 120/73; TEMP 99.9
== END 2024-10-03 09:12 | disposition short-term general hospital (02) ==
LOC: ER 04:34
DX: S31.41XA Laceration without foreign body of vagina and vulva, initial encounter (principal); K66.8 Other specified disorders of peritoneum; D72.829 Elevated white blood cell count, unspecified; Z90.710 Acquired absence of both cervix and uterus
CPT/HCPCS: 87040 ×2; 85025; 81001; 36415; 80053; 74176; J2543; J2405; J7030 ×2; J3480; 96361; 96365; 96375; 99285